=== PATIENT | male | born 1930 | race Caucasian/White ===

== ENCOUNTER 2017-08-13 18:03 | Emergency (ER) | payer MEDICARE ==
[2017-08-13 18:47] LABS: #Basophils 0.1 thou/uL (0.0-0.2); #Eosinphils 0.2 thou/uL (0.0-0.7); #Lymphocytes 3.3 thou/uL (1.20-3.40); #Monocytes 0.8 thou/uL (0.11-0.59); #Neutrophils 5.6 thou/uL (1.40-6.50); %Basophils 0.8 % (0.0-1.0); %Eosinophils 2.1 % (0.0-10.0); %Lymphocytes 33.3 % (21.0-51.0); %Monocytes 7.7 % (0.0-10.0); %Neutrophils 56.1 % (42.0-75.0); Hemoglobin 10.6 g/dL (14.0-18.0); Mean Corpuscular Hemoglobin 30.2 pg (27.0-31.0); Mean Corpuscular Volume 91.7 fl (80.0-94.0); Mean Platelet Volume 5.7 fL (7.4-10.4); Platelet Count 239 thou/uL (130-400); RBC Distribution Width 12.5 % (11.5-14.5); Red Blood Cell (RBC) Count 3.49 mill/uL (4.70-6.10)
--- NOTE | 2017-08-13 19:04 | RAD ---
TWO VIEWS OF THE LEFT HIP 08/13/17 COMPARISON: None. HISTORY: LEFT HIP PAIN, FALL. FINDINGS: There is mild joint space narrowing and osteophyte formation. There is no displaced fracture or evide nce of dislocation. There are atherosclerotic calcifications within the imaged left thigh medially. IMPRESSION: No displaced fracture or evidence of dislocation. POS: [facility]
[2017-08-13 19:05] LABS: ALT (SGPT) 31 U/L (8-55); AST (SGOT) 31 U/L (5-34); Alkaline Phosphatase 142 U/L (40-150); Anion Gap 14 mmol/L (10-20); BUN (Urea Nitrogen) 48 mg/dL (8.4-25.7); Bilirubin, Total 0.4 mg/dL (0.2-1.2); CK (CPK) 192 U/L (30-200); Calc. Creatinine Clearance 0 mL/min (70-130); Calcium 9.1 mg/dL (7.8-10.44); Carbon Dioxide 22 mmol/L (23-31); Chloride 103 mmol/L (98-107); Estimated GFR-MDRD 44; Globulin 3.7 g/dL (2.4-3.5); Glucose 134 mg/dL (83-110); Lipase 18 U/L (8-78); Potassium 4.4 mmol/L (3.5-5.1); Protein, Total 7.7 g/dL (5.8-8.1); Sodium 135 mmol/L (136-145)
--- NOTE | 2017-08-13 19:05 | RAD ---
FRONTAL RADIOGRAPH CHEST 08/13/17 COMPARISON: 01/10/17 HISTORY: Shortness of breath with dyspnea and congestion. FINDINGS: there is stable prominence of the cardiac silhouette and aortic arch. There is no pneumothorax or ple ural fluid and no focal consolidation or alveolar edema. There is mild interstitial prominence with p ulmonary hyperinflation. Stable left upper lobe granuloma present. IMPRESSION: No acute findings - stable appearance of the chest. POS: [facility]
[2017-08-13 19:08] LABS: CKMB 1.4 ng/mL (0-6.6); Troponin I Less than 0.010 ng/mL (< 0.028)
[2017-08-13] MEDS ORDERED: Dexamethasone 4 mg/ml Vial ONE (19:25)
== END 2017-08-13 19:58 | disposition home or self-care (01) ==
LOC: ERS 18:03
DX: J20.9 Acute bronchitis, unspecified (principal); I11.0 Hypertensive heart disease with heart failure; I50.9 Heart failure, unspecified; E78.5 Hyperlipidemia, unspecified; G62.9 Polyneuropathy, unspecified; Z79.899 Other long term (current) drug therapy
CPT/HCPCS: 71045; 80053; 82550; 82553; 83690; 83880; 84484; 85025; 93005; 94640; 96372; J1100; J7620

== ENCOUNTER 2017-09-27 18:02 | Emergency (ER) | payer MEDICARE ==
[2017-09-27 18:33] LABS: #Basophils 0.1 thou/uL (0.0-0.2); #Eosinphils 0.2 thou/uL (0.0-0.7); #Lymphocytes 3.6 thou/uL (1.20-3.40); #Monocytes 0.7 thou/uL (0.11-0.59); #Neutrophils 3.1 thou/uL (1.40-6.50); %Basophils 1.1 % (0.0-1.0); %Lymphocytes 46.8 % (21.0-51.0); %Monocytes 9.3 % (0.0-10.0); %Neutrophils 39.8 % (42.0-75.0); Hemoglobin 11.8 g/dL (14.0-18.0); Mean Corpuscular Hemoglobin 30.3 pg (27.0-31.0); Mean Corpuscular Volume 91.9 fl (80.0-94.0); Mean Platelet Volume 5.5 fL (7.4-10.4); Platelet Count 258 thou/uL (130-400); RBC Distribution Width 12.4 % (11.5-14.5); Red Blood Cell (RBC) Count 3.88 mill/uL (4.70-6.10); White Blood Cell (WBC) Count 7.7 thou/uL (4.8-10.8)
[2017-09-27 18:58] LABS: CKMB 2.1 ng/mL (0-6.6); Troponin I Less than 0.010 ng/mL (< 0.028)
[2017-09-27 19:00] LABS: ALT (SGPT) 14 U/L (8-55); AST (SGOT) 18 U/L (5-34); Albumin 4.3 g/dL (3.4-4.8); Alkaline Phosphatase 133 U/L (40-150); Anion Gap 16 mmol/L (10-20); BUN (Urea Nitrogen) 32 mg/dL (8.4-25.7); Bilirubin, Total 0.4 mg/dL (0.2-1.2); CK (CPK) 108 U/L (30-200); Calc. Creatinine Clearance 0 mL/min (70-130); Calcium 9.4 mg/dL (7.8-10.44); Carbon Dioxide 22 mmol/L (23-31); Chloride 102 mmol/L (98-107); Estimated GFR-MDRD 47; Globulin 3.8 g/dL (2.4-3.5); Glucose 122 mg/dL (83-110); Potassium 4.4 mmol/L (3.5-5.1); Protein, Total 8.1 g/dL (5.8-8.1); Sodium 136 mmol/L (136-145)
[2017-09-27 19:02] LABS: Lactic Acid 0.9 mmol/L (0.5-2.2)
[2017-09-27] MEDS ORDERED: Furosemide 40 MG/4 ML VIAL ONE (19:37)
[2017-09-27] MEDS ORDERED: Albuterol Sulfate 2.5 mg/3 ml Neb ONE ×2 (19:42)
--- NOTE | 2017-09-27 19:50 | RAD ---
PORTABLE CHEST: 09/27/2017 PROVIDED CLINICAL HISTORY: Shortness of breath. COMPARISON: 08/13/2017 FINDINGS: Cardiac and mediastinal silhouette are unchanged in appearance with cardiomegaly redemonstrated. Ath erosclerosis is again seen. Chronic appearing lung changes are similar. No focal consolidation, ple ural effusion, or pneumothorax apparent. IMPRESSION: Stable radiographic appearance of the chest. POS: [facility]
== END 2017-09-27 20:54 | disposition home or self-care (01) ==
LOC: ERS 18:02
DX: R06.00 Dyspnea, unspecified (principal); E78.5 Hyperlipidemia, unspecified; E11.40 Type 2 diabetes mellitus with diabetic neuropathy, unspecified; I11.0 Hypertensive heart disease with heart failure; I50.9 Heart failure, unspecified
CPT/HCPCS: 71045; 80053; 82553; 83605; 83880; 84484; 85025; 93005; 96374; J1940; J7611

== ENCOUNTER 2017-10-12 15:08 | Outpatient (CLI) | payer MEDICARE | END 2017-10-12 15:09 | disposition home or self-care (01) | LOC: DTY/OP 15:08 | PROVIDERS: ATTEND Internal Medicine | DX: E11.22 Type 2 diabetes mellitus with diabetic chronic kidney disease (principal); N18.3 Chronic kidney disease, stage 3 (moderate) | CPT/HCPCS: 97802 ==

== ENCOUNTER 2017-10-29 09:21 | Outpatient (CLI) | payer MEDICARE | END 2017-10-29 09:22 | disposition home or self-care (01) | LOC: BICULT 09:21 | PROVIDERS: ATTEND Internal Medicine Nephrology | DX: I12.9 Hypertensive chronic kidney disease with stage 1 through stage 4 chronic kidney disease, or unspecified chronic kidney disease (principal); N18.3 Chronic kidney disease, stage 3 (moderate) | CPT/HCPCS: 76700; 76770 ==

== ENCOUNTER 2017-12-27 08:46 | Emergency (ER) | payer MEDICARE ==
[2017-12-27 09:21] LABS: #Basophils 0.1 thou/uL (0.0-0.2); #Eosinphils 0.2 thou/uL (0.0-0.7); #Lymphocytes 3.3 thou/uL (1.20-3.40); #Monocytes 0.7 thou/uL (0.11-0.59); #Neutrophils 4.6 thou/uL (1.40-6.50); %Basophils 0.8 % (0.0-1.0); %Eosinophils 2.7 % (0.0-10.0); %Lymphocytes 36.7 % (21.0-51.0); %Monocytes 8.1 % (0.0-10.0); %Neutrophils 51.7 % (42.0-75.0); Hemoglobin 11.6 g/dL (14.0-18.0); Mean Corpuscular HGB CONC 32.5 g/dL (32.0-36.0); Mean Corpuscular Hemoglobin 30.1 pg (27.0-31.0); Mean Corpuscular Volume 92.6 fL (78.0-98.0); Mean Platelet Volume 5.9 fL (7.4-10.4); Platelet Count 240 thou/uL (130-400); Red Blood Cell (RBC) Count 3.86 mill/uL (4.70-6.10); White Blood Cell (WBC) Count 8.9 thou/uL (4.8-10.8)
[2017-12-27 09:48] LABS: CKMB 1.7 ng/mL (0-6.6); Troponin I Less than 0.010 ng/mL (< 0.028)
[2017-12-27 09:52] LABS: ALT (SGPT) 16 U/L (8-55); AST (SGOT) 19 U/L (5-34); Albumin 4.3 g/dL (3.4-4.8); Alkaline Phosphatase 133 U/L (40-150); Anion Gap 15 mmol/L (10-20); BUN (Urea Nitrogen) 33 mg/dL (8.4-25.7); Bilirubin, Total 0.4 mg/dL (0.2-1.2); Calc. Creatinine Clearance 0 mL/min (70-130); Calcium 9.3 mg/dL (7.8-10.44); Carbon Dioxide 23 mmol/L (23-31); Chloride 104 mmol/L (98-107); Estimated GFR-MDRD 46; Globulin 3.8 g/dL (2.4-3.5); Glucose 112 mg/dL (83-110); Potassium 4.7 mmol/L (3.5-5.1); Protein, Total 8.1 g/dL (5.8-8.1); Sodium 137 mmol/L (136-145)
--- NOTE | 2017-12-27 10:25 | RAD ---
UPRIGHT PORTABLE CHEST ONE VIEW: History: 87-year-old male with history of dyspnea and shortness of breath. Comparison: 09-27-17 FINDINGS: Stable cardiomegaly with increased linear and interstitial markings bilaterally. Old granulomatous di sease. No confluent pneumonia, overt edema, or pleural effusion. IMPRESSION: Stable cardiomegaly and increased markings bilaterally which may well be chronic. Old granulomatous d isease on the left. Atherosclerosis of the aorta with ectasia. POS: [facility]
== END 2017-12-27 10:55 | disposition home or self-care (01) ==
LOC: ERS 08:46
DX: J42 Unspecified chronic bronchitis (principal); E11.42 Type 2 diabetes mellitus with diabetic polyneuropathy; E78.5 Hyperlipidemia, unspecified; I11.0 Hypertensive heart disease with heart failure; I50.9 Heart failure, unspecified; Z79.899 Other long term (current) drug therapy; Z79.84 Long term (current) use of oral hypoglycemic drugs
CPT/HCPCS: 71045; 80053; 82553; 83880; 84484; 85025; 93005; 94640

== ENCOUNTER 2019-01-09 11:33 | Outpatient (CLI) | payer MEDICARE ==
--- NOTE | 2019-01-09 13:56 | RAD ---
RIGHT KNEE FOUR VIEWS: HISTORY: Right knee pain. FINDINGS: There are mild degenerative changes. No fracture, dislocation, or bony destruction is seen. Vascula r calcifications are present. POS: [facility]
--- NOTE | 2019-01-09 13:59 | RAD ---
LEFT KNEE 4 VIEWS: HISTORY: Left knee pain. FINDINGS/IMPRESSION: There are mild degenerative changes. No fracture, dislocation, or bony destruction is seen. Vascula r calcifications are present. 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 POS: [facility]
== END 2019-01-09 11:34 | disposition home or self-care (01) ==
LOC: BICRAD 11:33
PROVIDERS: ATTEND Internal Medicine
DX: M25.561 Pain in right knee (principal); M25.562 Pain in left knee; M17.12 Unilateral primary osteoarthritis, left knee; D16.22 Benign neoplasm of long bones of left lower limb; I99.8 Other disorder of circulatory system

== ENCOUNTER 2019-03-26 11:43 | Emergency (ER) | payer MEDICARE ==
--- NOTE | 2019-03-26 12:26 | RAD ---
PORTABLE CHEST 1 VIEW: Date: 03/26/19 Time: 1219 hours HISTORY: Dyspnea. FINDINGS/IMPRESSION: Comparison made with exam of 12/27/17. The heart size is borderline. The aorta is tortuous. Chronic changes are again seen. No lobar consoli dation, pneumothoraces, or large effusions are identified. There is no evidence of oliverio pulmonary ed moni. POS: [facility]
[2019-03-26 12:36] LABS: #Basophils 0.1 thou/uL (0.0-0.2); #Eosinphils 0.1 thou/uL (0.0-0.7); #Lymphocytes 2.4 thou/uL (1.20-3.40); #Monocytes 0.6 thou/uL (0.11-0.59); #Neutrophils 4.4 thou/uL (1.40-6.50); %Basophils 0.8 % (0.0-1.0); %Eosinophils 1.9 % (0.0-10.0); %Lymphocytes 31.7 % (21.0-51.0); %Monocytes 8.1 % (0.0-10.0); %Neutrophils 57.5 % (42.0-75.0); Hemoglobin 10.1 g/dL (14.0-18.0); Mean Corpuscular HGB CONC 32.3 g/dL (32.0-36.0); Mean Corpuscular Hemoglobin 28.7 pg (27.0-31.0); Mean Corpuscular Volume 88.9 fL (78.0-98.0); Mean Platelet Volume 6.5 fL (7.4-10.4); Platelet Count 238 thou/uL (130-400); RBC Distribution Width 14.2 % (11.5-14.5); Red Blood Cell (RBC) Count 3.52 mill/uL (4.70-6.10); White Blood Cell (WBC) Count 7.6 thou/uL (4.8-10.8)
[2019-03-26 12:45] LABS: ALT (SGPT) 13 U/L (8-55); AST (SGOT) 15 U/L (5-34); Alkaline Phosphatase 134 U/L (40-110); Anion Gap 12 mmol/L (10-20); BUN (Urea Nitrogen) 27 mg/dL (8.4-25.7); Bilirubin, Total 0.5 mg/dL (0.2-1.2); Calc. Creatinine Clearance 0 mL/min (70-130); Calcium 9.2 mg/dL (7.8-10.44); Carbon Dioxide 25 mmol/L (23-31); Chloride 103 mmol/L (98-107); Estimated GFR-MDRD 47; Globulin 4.1 g/dL (2.4-3.5); Glucose 146 mg/dL (83-110); Potassium 4.4 mmol/L (3.5-5.1); Protein, Total 8.1 g/dL (5.8-8.1); Sodium 136 mmol/L (136-145)
== END 2019-03-26 14:20 | disposition home or self-care (01) ==
LOC: ERS 11:43
DX: I11.0 Hypertensive heart disease with heart failure (principal); I50.9 Heart failure, unspecified; I87.8 Other specified disorders of veins; E11.42 Type 2 diabetes mellitus with diabetic polyneuropathy; E78.5 Hyperlipidemia, unspecified; E78.00 Pure hypercholesterolemia, unspecified; Z79.899 Other long term (current) drug therapy; Z79.51 Long term (current) use of inhaled steroids
CPT/HCPCS: 71045; 80053; 83880; 84484; 85025; 93005

== ENCOUNTER 2019-06-28 07:38 | Outpatient (CLI) | payer MEDICARE ==
--- NOTE | 2019-06-28 09:32 | ULT ---
RIGHT UPPER QUADRANT ULTRASOUND: DATE: 06/28/2019. COMPARISON: None. HISTORY: Elevated liver function tests. TECHNIQUE: Multiplanar, ley scale, sonographic imaging right upper quadrant obtained. FINDINGS: Partially visualized pancreas unremarkable, greatly obscured by bowel gas. There is significant limi tation with respect to evaluation of the liver secondary to bowel gas as well. Imaged portions of th e liver demonstrate no focal abnormality. The tower supervisor reports a negative Jay's sign. The common bile duct measures 5 mm, within normal limits. There is nonspecific gallbladder wall thickening, with the gallbladder wall measuring up to 5-6 mm. No gallstones are apparent. Gallbladder sludge is seen. The right kidney measured 11.5 cm craniocau aldair dimension and demonstrates no evidence for stone, hydronephrosis, or mass lesion. There is probable trace free fluid adjacent to the gallbladder. IMPRESSION: Gallbladder demonstrates an abnormal appearance with wall thickening and internal sludge. However, t here are no gallstones seen, there is no biliary dilatation, and the tower supervisor reports a negative M urphy's sign. If further assessment of the gallbladder is clinically warranted, hepatobiliary scan i s suggested. No convincing evidence for acute cholecystitis is seen on the basis of this examination . POS: [facility]
== END 2019-06-28 07:39 | disposition home or self-care (01) ==
LOC: BICULT 07:38
PROVIDERS: ATTEND Internal Medicine
DX: R74.8 Abnormal levels of other serum enzymes (principal); K82.8 Other specified diseases of gallbladder
CPT/HCPCS: 76705

== ENCOUNTER 2019-07-17 07:20 | Outpatient (CLI) | payer MEDICARE ==
--- NOTE | 2019-07-17 10:55 | NM ---
Exam: Nuclear medicine HIDA scan with EF HISTORY: Gallbladder disease. No bladder wall thickening and sludge noted on recent ultrasound. TECHNIQUE: Patient was administered 5.5 mCi of technetium 99m mebrofenin intravenously. Gallbladder e jection fraction was determined after the patient administered 8 out of Ensure orally FINDINGS: Homogeneous uptake of the radiotracer by the hepatic parenchyma. There is localization of radiotracer in the gallbladder as early as 15 minutes. There is passage of radiotracer from the common bile duct into multiple small bowel loops Gallbladder ejection fraction: 56% IMPRESSION: 1. No scintigraphic evidence of acute prostatitis 2. 56% gallbladder ejection fraction, normal
== END 2019-07-17 07:21 | disposition home or self-care (01) ==
LOC: NM 07:20
PROVIDERS: ATTEND Internal Medicine
DX: K82.8 Other specified diseases of gallbladder (principal)
CPT/HCPCS: 78227; A9537

== ENCOUNTER 2019-08-10 15:48 | Inpatient (IN) | payer MEDICARE ==
[2019-08-10 17:04] LABS: Mean Corpuscular Volume 87.1 fL (78.0-98.0); Red Blood Cell (RBC) Count 3.22 mill/uL (4.70-6.10); White Blood Cell (WBC) Count 8.3 thou/uL (4.8-10.8)
[2019-08-10 17:05] LABS: #Lymphocytes 1.8 thou/uL (1.20-3.40); #Monocytes 1.2 thou/uL (0.11-0.59); #Neutrophils 5.2 thou/uL (1.40-6.50); %Basophils 0.1 % (0.0-1.0); %Eosinophils 0.6 % (0.0-10.0); %Lymphocytes 21.8 % (21.0-51.0); %Monocytes 14.6 % (0.0-10.0); Mean Corpuscular Hemoglobin 27.8 pg (27.0-31.0); Mean Platelet Volume 6.8 fL (7.4-10.4); Platelet Count 213 thou/uL (130-400); RBC Distribution Width 14.2 % (11.5-14.5)
--- NOTE | 2019-08-10 17:18 | RAD ---
XR Chest 1 View Portable History: Decreased oxygen saturation Comparison: Radiograph February 2019 Findings: The heart size is enlarged. Trace effusions. Mild pulmonary edema. No pneumothorax. Calcifi ed granuloma left upper lobe. Heart size is enlarged. Calcific tendinosis right rotator cuff. Old right rib fractures. Impression: Mild decompensated congestive heart failure.
[2019-08-10 17:29] LABS: ALT (SGPT) 15 U/L (8-55); AST (SGOT) 21 U/L (5-34); Albumin 3.8 g/dL (3.4-4.8); Alkaline Phosphatase 183 U/L (40-110); Anion Gap 13 mmol/L (10-20); BUN (Urea Nitrogen) 38 mg/dL (8.4-25.7); Bilirubin, Total 0.9 mg/dL (0.2-1.2); Calc. Creatinine Clearance 0 mL/min (70-130); Calcium 8.9 mg/dL (7.8-10.44); Carbon Dioxide 24 mmol/L (23-31); Chloride 103 mmol/L (98-107); Estimated GFR-MDRD 37; Globulin 3.9 g/dL (2.4-3.5); Glucose 161 mg/dL (83-110); Potassium 4.2 mmol/L (3.5-5.1); Protein, Total 7.7 g/dL (5.8-8.1); Sodium 136 mmol/L (136-145)
[2019-08-10] MEDS ORDERED: Albuterol Sulfate 2.5 mg/0.5 ml Neb ONE (17:38)
[2019-08-10] MEDS ORDERED: Albuterol Sulfate 2.5 mg/3 ml Neb ONE (17:38)
[2019-08-10 17:46] LABS: Analyzer IN Cardio ER; Base Excess (BEa) -2.4 mEq/L (-2.0 to +3.0); CO2 Tension 42.4 mmHg (35.0-45.0); Calcium, Ionized 1.15 mmol/L (1.12-1.30); Carboxyhemoglobin (COHb) 0.8 gm% (0.0-3.0); Hemoglobin (Hb) 9.7 g/dL (14.0-18.0); O2 Tension (PaO2) 72.3 mmHg (> 60.0); Potassium - ABG Lab 4.09 mmol/L (3.70-5.30); pH, Arterial 7.35 (7.35-7.45)
[2019-08-10 17:47] LABS: Puncture Site RRA
[2019-08-10] MEDS ORDERED: Aspirin Chewable 81 MG TAB ONE (17:50)
[2019-08-10] MEDS ORDERED: Nitroglycerin 2% Ointment 1 INCH/1 GM Packet ONE (17:51)
[2019-08-10] MEDS ORDERED: Furosemide 40 MG/4 ML VIAL ONE (17:51)
[2019-08-10 18:39] LABS: Bilirubin Negative (Negative); Blood, Urine Negative (Negative); Clarity Clear (Clear); Glucose, Urine (Dipstick) Normal (Negative); Leukocyte Negative Leu/uL (Negative); Nitrite Negative (Negative); Protein, Urine (Dipstick) 30 mg/dL (Neg-Trace); RBC/HPF 0-3 HPF (0-3); Squamous Epithelial 0-3 HPF (0-3); WBC/HPF 0-3 HPF (0-3)
[2019-08-10 18:43] LABS: Bacteria/HPF 1+ HPF (None Seen)
[2019-08-10 20:05] LABS: Troponin I 0.013 ng/mL (< 0.028)
[2019-08-10 23:09] LABS: Troponin I 0.018 ng/mL (< 0.028)
[2019-08-10] MEDS ORDERED: Polyethylene Glycol OPTH DROP 15 ML BOT EA EYE PRN (23:48)
[2019-08-10] MEDS ORDERED: HumaLOG 300 UNITS/3 ML VIAL SC PRN (23:49)
[2019-08-10] MEDS ORDERED: Dextrose 50% Abboject 50 ML SYRINGE SLOW IVP PRN (23:49)
[2019-08-10] MEDS ORDERED: Dextrose 5% in Water 1,000 ML IV PRN (23:49)
[2019-08-10] MEDS ORDERED: Simvastatin 20 MG TAB PO SCH (23:59)
[2019-08-10] MEDS ORDERED: Carvedilol 25 MG TAB PO SCH (23:59)
[2019-08-11 02:14] VITALS: BMI 31.8
[2019-08-11] MEDS ORDERED: Acetaminophen 325 MG TAB PO PRN (03:21)
[2019-08-11] MEDS ORDERED: Ondansetron ODT 4 MG TAB PO PRN (03:21)
[2019-08-11] MEDS: PROVENTIL INHALER 6.7 G (200 INHALATIONS) INH SCH ×6 (03:43→23:00)
[2019-08-11 05:28] LABS: Band 5 % (5-11); Eosinophils 2 % (0-10); Hemoglobin 8.6 g/dL (14.0-18.0); Lymphocytes 16 % (21-51); MDiff Complete? YES; Mean Corpuscular HGB CONC 31.6 g/dL (32.0-36.0); Mean Corpuscular Hemoglobin 27.6 pg (27.0-31.0); Mean Corpuscular Volume 87.4 fL (78.0-98.0); Mean Platelet Volume 6.8 fL (7.4-10.4); Monocytes 16 % (0-10); Neutrophil 61 % (42-75); Platelet Count 212 thou/uL (130-400); RBC Distribution Width 14.2 % (11.5-14.5); Red Blood Cell (RBC) Count 3.12 mill/uL (4.70-6.10); White Blood Cell (WBC) Count 6.9 thou/uL (4.8-10.8)
[2019-08-11 05:31] LABS: Anion Gap 14 mmol/L (10-20); BUN (Urea Nitrogen) 40 mg/dL (8.4-25.7); Calc. Creatinine Clearance 55 mL/min (70-130); Calcium 8.6 mg/dL (7.8-10.44); Carbon Dioxide 22 mmol/L (23-31); Chloride 104 mmol/L (98-107); Estimated GFR-MDRD 42; Glucose 151 mg/dL (83-110); Potassium 3.8 mmol/L (3.5-5.1); Sodium 136 mmol/L (136-145)
[2019-08-11] MEDS: HumaLOG 300 UNITS/3 ML VIAL SC PRN ×2 (07:23→18:19)
--- NOTE | 2019-08-11 07:28 | HP ---
CHIEF COMPLAINT: Shortness of breath. HISTORY OF PRESENT ILLNESS: The patient is an 89-year-old male, who presents to the hospital with congestion, cough going on since Wednesday. The patient initially started having sore throat, cough. His symptoms did not improve, so he came into the ER for further evaluation. The patient in the ER was noted to have low oxygen saturations, however, his lowest was 91%. He did have some brown sputum. He stated that he took some [id number] medication. He has some body aches and pains. Denies any recent travel. He has not had any visitors, so he came into the hospital for further evaluation. PAST MEDICAL HISTORY: The patient has a history of neuropathy. He has a history of hyperlipidemia, cholesterol, history of type 2 diabetes, hypertension, CHF, and chronic kidney disease. PAST SURGICAL HISTORY: He has a history of cataract surgery, lumbar disk surgery, and stent in his left kidney. SOCIAL HISTORY: He denies any alcohol use, drug use. He lives alone. No recreational drug use. He is a full code. ALLERGIES: HE IS ALLERGIC TO PENICILLIN. MEDICATIONS: 1. He is on amlodipine 5 mg daily. 2. Simvastatin 10 mg daily. 3. He is also on aspirin 81 mg daily. 4. Carvedilol 25 mg twice a day. 5. Lasix 40 mg daily. 6. Protonix 40 mg daily. REVIEW OF SYSTEMS: All negative except for the ones mentioned above in the HPI. PHYSICAL EXAMINATION: VITAL SIGNS: Temperature of 98.3, pulse 72, respiratory rate 22, oxygen saturation 92% on 4 L, and blood pressure . GENERAL: He is awake, alert, and oriented x3. Does not appear in any distress. CARDIOVASCULAR: S1 and S2 present. No murmurs, rubs, or gallops. LUNGS: Mild rhonchi to bilateral lower lung bases. ABDOMEN: Soft and nontender. Bowel sounds are present x2. EXTREMITIES: Mild lower extremity pitting edema and also he has significant erythema to his lower extremity, which according to his family member is not new. NEUROVASCULAR: There are no focal deficits noted. SKIN: No cuts, lesions, or bruises noted except for the lower extremity erythema with some small blisters that are noted. LABORATORY RESULTS: As of the following; WBCs of 6.9, hemoglobin of 8.6, hematocrit of 27.3, and platelets of 212. Chemistries; sodium of , potassium of 3.8, BUN of 40, and creatinine of 1.58. His urine did not show any acute abnormalities. IMAGING DATA: His chest x-ray again upon my interpretation just indicates a bile leak, heart failure. His BNP was mildly elevated at 348. ASSESSMENT AND PLAN: The patient is a very pleasant 89-year-old male, who presents to the hospital with complaints of shortness of breath and cough. 1. Possible pneumonia. The patient's influenza was negative. However, he could have an underlying viral superimposed with pneumonia. The patient did have significant symptoms of coughing and change in sputum and he has not been feeling well since Wednesday. We will start him on some Levaquin. We will give him DuoNeb. I will also give him some IV Lasix and continue to monitor. 2. Hypertension. We will continue his home medications. 3. Diabetes. We will continue his home medications. 4. Chronic kidney disease, stage 3, stable. We will continue to monitor. 5. Deep venous thrombosis prophylaxis. We will put the patient on subcu Lovenox. Job ID: [id number]
[2019-08-11] MEDS ORDERED: Carvedilol 25 MG TAB PO SCH (08:00)
[2019-08-11] MEDS: hydrALAZINE 25 MG TAB PO SCH ×2 (08:53→21:47)
[2019-08-11] MEDS: Aspirin 81 mg Enteric Coated Tablet PO SCH (08:53)
[2019-08-11] MEDS: Amlodipine 5 MG TAB PO SCH ×2 (08:55→21:47)
[2019-08-11] MEDS: Carvedilol 25 MG TAB PO SCH ×2 (08:56→21:47)
[2019-08-11] MEDS: Enoxaparin Sodium 40 MG/0.4 ML SYRINGE SC SCH (08:56)
[2019-08-11] MEDS: Fluticasone Propionate Nasal Spray 16 gm Bottle NASAL SCH (08:57)
[2019-08-11] MEDS ORDERED: Aspirin 81 mg Enteric Coated Tablet PO SCH (09:00)
[2019-08-11] MEDS ORDERED: Enoxaparin Sodium 40 MG/0.4 ML SYRINGE SC SCH (09:00)
[2019-08-11] MEDS ORDERED: Furosemide 40 MG/4 ML VIAL SLOW IVP SCH (09:00)
--- NOTE | 2019-08-11 13:36 | PDOC.HOSPP ---
- Subjective Encounter Date: 08/11/19 Encounter Time: 13:35 Subjective: Mr. Hanson was seen today in follow-up of respiratory failure. He says he is breathing better. He still has some cough productive of brownish sputum. - Objective Vital Signs & Weight: Vital Signs (12 hours) Temp Pulse Resp BP BP Pulse Ox 08/11/19 11:50 98.3 F 63 23 H 153/70 H 94 L 08/11/19 08:55 84 146/66 H 08/11/19 08:53 84 146/66 H 08/11/19 08:04 98.6 F 61 20 187/79 H 100 08/11/19 07:37 63 13 94 L 08/11/19 07:33 94 L 08/11/19 03:43 95 08/11/19 02:10 98.3 F 72 22 H 179/79 H 92 L Weight Admit Weight 261 lb 3.2 oz Weight 261 lb 3.2 oz Result Diagrams: 08/11/19 04:35 08/11/19 04:34 Additional Labs: Accuchecks 08/11/19 08/11/19 06:11 01:12 POC Glucose 155 H 181 H Hospitalist ROS - Medication Medications: Active Medications Generic Name Dose Route Start Last Admin Trade Name Freq PRN Reason Stop Dose Admin Albuterol Sulfate 2 puff 08/11/19 02:30 08/11/19 07:33 Proventil Hfa INH 2 puff [id number] TARAH Administration Albuterol/Ipratropium 3 ml 08/11/19 07:00 08/11/19 07:37 Duoneb NEB 3 ml [id number] TARAH Administration Amlodipine Besylate 5 mg 08/11/19 09:00 08/11/19 08:55 Norvasc PO 5 mg BID TARAH Administration Aspirin 81 mg 08/11/19 09:00 08/11/19 08:53 Ecotrin PO 81 mg DAILY TARAH Administration Carvedilol 25 mg 08/11/19 09:00 08/11/19 08:56 Coreg PO 25 mg BID TARAH Administration Enoxaparin Sodium 40 mg 08/11/19 09:00 08/11/19 08:56 Lovenox SC 40 mg 0900 TARAH Administration Fluticasone Propionate 0 gm 08/11/19 09:00 08/11/19 08:57 Flonase Nasal [place] NASAL Not Given DAILY [facility] Hydralazine HCl 50 mg 08/11/19 09:00 08/11/19 08:53 Apresoline PO 50 mg BID TARAH Administration Levofloxacin 500 mg/ Device 100 mls @ 100 mls/hr 08/11/19 05:15 08/11/19 05: 55 IVPB 100 mls Q24HR TARAH Administration Insulin Human Lispro 0 units 08/10/19 23:49 08/11/19 07:23 Humalog SC 2 unit .MILD SLIDING SCALE PRN Administration Mild Correctional Scale Isosorbide Mononitrate 30 mg 08/11/19 09:00 08/11/19 08:55 Imdur PO 30 mg DAILY TARAH Administration Pantoprazole Sodium 40 mg 08/11/19 09:00 08/11/19 08:53 Protonix PO 40 mg DAILY TARAH Administration Sodium Chloride 10 ml 08/11/19 09:00 08/11/19 08:57 Flush - Normal Saline IVF 10 ml Q12HR TARAH Administration - Exam Eye: PERRL Heart: RRR, no murmur, no gallops, no rubs, normal peripheral pulses Respiratory: wheezes (+ bilateral wheezeing and samoe scattered rhonchi) Gastrointestinal: soft, non-tender, non-distended, normal bowel sounds, no palpable masses, no hepatomegaly, no splenomegaly Extremities: 2+ LE edema (+ erythema in both lower extremities, and chronic venous stasis changes) Hosp A/P (1) Acute respiratory failure Code(s): J96.00 - ACUTE RESPIRATORY FAILURE, UNSP W HYPOXIA OR HYPERCAPNIA Status: Acute (2) Community acquired pneumonia Code(s): J18.9 - PNEUMONIA, UNSPECIFIED ORGANISM Status: Acute (3) CKD (chronic kidney disease) stage 2, GFR 60-89 ml/min Code(s): N18.2 - CHRONIC KIDNEY DISEASE, STAGE 2 (MILD) Status: Chronic (4) DM2 (diabetes mellitus, type 2) Status: Chronic (5) HTN (hypertension) Code(s): I10 - ESSENTIAL (PRIMARY) HYPERTENSION Status: Chronic (6) Acute on chronic diastolic (congestive) heart failure Code(s): I50.33 - ACUTE ON CHRONIC DIASTOLIC (CONGESTIVE) HEART FAILURE Status : Acute - Plan * Acute respiratory failure due to pneumonia and CHF exacerbation * Pneumonia- clinically this is more likely bacterial with productive sputum, of vasques- brown color- will continue Levaquin * Acute on chronic diastolic heart failure- it does not appear he has had a recent Echo- will check this- and will transition him to oral Lasix * HTN- blood pressure was a bit elevated, but trending down * Chronic kidney disease stage 2- stable * DM- blood glucose is stable
[2019-08-11] MEDS ORDERED: Simvastatin 20 MG TAB PO SCH (21:00)
[2019-08-11] MEDS: Simvastatin 20 MG TAB PO SCH (21:47)
[2019-08-11] MEDS: Furosemide 40 MG TAB PO SCH (21:47)
[2019-08-11] MEDS: DorzolamidE/Timolol 2%/0.5% Ophth Soln 10 ml Bottle EA EYE SCH (21:48)
[2019-08-11] MEDS ORDERED: hydrALAZINE 20 MG/ML VIAL ONE (21:52)
[2019-08-12] MEDS: PROVENTIL INHALER 6.7 G (200 INHALATIONS) INH SCH ×6 (03:43→22:16)
[2019-08-12 05:18] LABS: #Basophils 0.1 thou/uL (0.0-0.2); #Eosinphils 0.1 thou/uL (0.0-0.7); #Lymphocytes 1.9 thou/uL (1.20-3.40); #Neutrophils 4.2 thou/uL (1.40-6.50); %Basophils 0.7 % (0.0-1.0); %Eosinophils 1.3 % (0.0-10.0); %Lymphocytes 26.7 % (21.0-51.0); %Monocytes 13.6 % (0.0-10.0); %Neutrophils 57.7 % (42.0-75.0); Hemoglobin 9.1 g/dL (14.0-18.0); Mean Corpuscular HGB CONC 31.2 g/dL (32.0-36.0); Mean Corpuscular Hemoglobin 27.2 pg (27.0-31.0); Mean Corpuscular Volume 87.2 fL (78.0-98.0); Mean Platelet Volume 6.1 fL (7.4-10.4); Platelet Count 207 thou/uL (130-400); RBC Distribution Width 14.2 % (11.5-14.5); Red Blood Cell (RBC) Count 3.33 mill/uL (4.70-6.10); White Blood Cell (WBC) Count 7.3 thou/uL (4.8-10.8)
[2019-08-12 05:42] LABS: Anion Gap 14 mmol/L (10-20); BUN (Urea Nitrogen) 40 mg/dL (8.4-25.7); Calc. Creatinine Clearance 58 mL/min (70-130); Carbon Dioxide 24 mmol/L (23-31); Chloride 103 mmol/L (98-107); Estimated GFR-MDRD 44; Glucose 133 mg/dL (83-110); Potassium 3.8 mmol/L (3.5-5.1); Sodium 137 mmol/L (136-145)
[2019-08-12] MEDS: Amlodipine 5 MG TAB PO SCH ×2 (09:10→21:02)
[2019-08-12] MEDS: Carvedilol 25 MG TAB PO SCH ×2 (09:10→21:02)
[2019-08-12] MEDS: Aspirin 81 mg Enteric Coated Tablet PO SCH (09:11)
[2019-08-12] MEDS: Furosemide 40 MG TAB PO SCH ×2 (09:12→21:02)
[2019-08-12] MEDS: Enoxaparin Sodium 40 MG/0.4 ML SYRINGE SC SCH (09:12)
[2019-08-12] MEDS: Fluticasone Propionate Nasal Spray 16 gm Bottle NASAL SCH (09:15)
[2019-08-12] MEDS: hydrALAZINE 25 MG TAB PO SCH ×2 (10:22→21:01)
[2019-08-12] MEDS: HumaLOG 300 UNITS/3 ML VIAL SC PRN ×2 (12:08→17:07)
--- NOTE | 2019-08-12 12:11 | PDOC.HOSPP ---
- Subjective Encounter Date: 08/12/19 Encounter Time: 10:00 Subjective: breathing better, lower extremity swelling is better says he is ambulating a bit in the room and that's his baseline at home lives with his , has friends to check on him daily - Objective Vital Signs & Weight: Vital Signs (12 hours) Temp Pulse Resp BP BP Pulse Ox 08/12/19 10:22 66 169/78 H 08/12/19 09:10 66 169/78 H 95 08/12/19 08:23 98.0 F 71 20 169/71 H 95 08/12/19 06:32 66 16 08/12/19 05:24 98.2 F 67 18 165/74 H 95 08/12/19 00:49 97.8 F 64 16 157/70 H 95 Weight Admit Weight 261 lb 3.2 oz Weight 261 lb 3.2 oz I&O: 08/11/19 08/12/19 08/13/19 06:59 06:59 06:59 Intake Total 490 Output Total 1100 Balance -610 Result Diagrams: 08/12/19 05:10 08/12/19 05:10 Additional Labs: Accuchecks 08/12/19 08/12/19 08/11/19 10:54 06:34 20:59 POC Glucose 224 H 145 H 172 H 08/11/19 08/11/19 16:39 14:11 POC Glucose 191 H 199 H Hospitalist ROS - Medication Medications: Active Medications Generic Name Dose Route Start Last Admin Trade Name Freq PRN Reason Stop Dose Admin Albuterol Sulfate 2 puff 08/11/19 02:30 08/12/19 11:09 Proventil Hfa INH Not Given [id number] TARAH Albuterol/Ipratropium 3 ml 08/11/19 07:00 08/12/19 06:32 Duoneb NEB 3 ml [id number] TARAH Administration Amlodipine Besylate 5 mg 08/11/19 09:00 08/12/19 09:10 Norvasc PO 5 mg BID TARAH Administration Aspirin 81 mg 08/11/19 09:00 08/12/19 09:11 Ecotrin PO 81 mg DAILY [facility]AH Administration Carvedilol 25 mg 08/11/19 09:00 08/12/19 09:10 Coreg PO 25 mg BID TARAH Administration Dorzolamide/Timolol 1 drop 08/11/19 21:00 08/11/19 21:48 Cosopt 2-0.5% Ophth Soln EA EYE 1 drop HS TARAH Administration Enoxaparin Sodium 40 mg 08/11/19 09:00 08/12/19 09:12 Lovenox SC 40 mg 0900 TARAH Administration Fluticasone Propionate 0 gm 08/11/19 09:00 08/12/19 09:15 Flonase Nasal [place] NASAL 2 spr DAILY [facility] Administration Furosemide 40 mg 08/11/19 21:00 08/12/19 09:12 Lasix PO 40 mg BID TARAH Administration Hydralazine HCl 50 mg 08/11/19 09:00 08/12/19 10:22 Apresoline PO 50 mg BID TARAH Administration Levofloxacin 500 mg/ Device 100 mls @ 100 mls/hr 08/11/19 05:15 08/12/19 05: 34 IVPB 100 mls Q24HR TARAH Administration Insulin Human Lispro 0 units 08/10/19 23:49 08/11/19 18:19 Humalog SC 2 unit .MILD SLIDING SCALE PRN Administration Mild Correctional Scale Isosorbide Mononitrate 30 mg 08/11/19 09:00 08/12/19 09:11 Imdur PO 30 mg DAILY [facility]AH Administration Pantoprazole Sodium 40 mg 08/11/19 09:00 08/12/19 09:11 Protonix PO 40 mg DAILY [facility]AH Administration Simvastatin 10 mg 08/11/19 21:00 08/11/19 21:47 Zocor PO 10 mg HS TARAH Administration Sodium Chloride 10 ml 08/11/19 09:00 08/12/19 09:15 Flush - Normal Saline IVF 10 ml Q12HR TARAH Administration - Exam General Appearance: awake alert Eye: PERRL, anicteric sclera ENT: no oropharyngeal lesions, moist mucosa Neck: supple, no JVD Heart: RRR, no murmur Respiratory: no wheezes, no rales, rhonchi Gastrointestinal: soft, non-tender, non-distended, normal bowel sounds Extremities: no cyanosis, 2+ LE edema Extremities - other findings: right LE > Left LE Neurological: cranial nerve grossly intact, no focal deficits Psychiatric: normal affect, A&O x 3 Hosp A/P (1) Acute respiratory failure Code(s): J96.00 - ACUTE RESPIRATORY FAILURE, UNSP W HYPOXIA OR HYPERCAPNIA Status: Acute Qualifiers: Respiratory failure complication: hypoxia Qualified Code(s): J96.01 - Acute respiratory failure with hypoxia (2) Community acquired pneumonia Code(s): J18.9 - PNEUMONIA, UNSPECIFIED ORGANISM Status: Acute (3) VERO (acute kidney injury) Code(s): N17.9 - ACUTE KIDNEY FAILURE, UNSPECIFIED Status: Acute (4) Acute on chronic diastolic (congestive) heart failure Code(s): I50.33 - ACUTE ON CHRONIC DIASTOLIC (CONGESTIVE) HEART FAILURE Status : Acute (5) Anxiety and depression Code(s): F41.8 - OTHER SPECIFIED ANXIETY DISORDERS Status: Chronic (6) DM2 (diabetes mellitus, type 2) Status: Chronic Qualifiers: Diabetes mellitus continuous churn buttermaker insulin use: without continuous churn buttermaker use Diabetes mellitus complication status: with other specified complication Qualified Code (s): E11.69 - Type 2 diabetes mellitus with other specified complication (7) HTN (hypertension) Code(s): I10 - ESSENTIAL (PRIMARY) HYPERTENSION Status: Chronic Qualifiers: Hypertension type: essential hypertension Qualified Code(s): I10 - Essential (primary) hypertension (8) Chronic anemia Code(s): D64.9 - ANEMIA, UNSPECIFIED Status: Chronic - Plan clinically his edema in LE is better and almost at baseline per patient continue levaquin, nebs, norvasc, asp, coreg, hydralazine, lasix bid and imdur has chronic likely lymphedema or venous stasis with right LE > left LE to mobilize as tolerated will need HH with PT and nursing on discharge
[2019-08-12] MEDS: DorzolamidE/Timolol 2%/0.5% Ophth Soln 10 ml Bottle EA EYE SCH (21:02)
[2019-08-12] MEDS: Simvastatin 20 MG TAB PO SCH (21:02)
[2019-08-13] MEDS: PROVENTIL INHALER 6.7 G (200 INHALATIONS) INH SCH ×6 (04:25→22:52)
[2019-08-13] MEDS: Furosemide 40 MG TAB PO SCH ×2 (07:35→20:28)
[2019-08-13] MEDS: hydrALAZINE 25 MG TAB PO SCH ×2 (07:35→20:28)
[2019-08-13] MEDS: Aspirin 81 mg Enteric Coated Tablet PO SCH (07:35)
[2019-08-13] MEDS: Amlodipine 5 MG TAB PO SCH ×2 (07:35→20:28)
[2019-08-13] MEDS: Fluticasone Propionate Nasal Spray 16 gm Bottle NASAL SCH (07:36)
[2019-08-13] MEDS: Carvedilol 25 MG TAB PO SCH ×2 (07:36→20:28)
[2019-08-13] MEDS: Enoxaparin Sodium 40 MG/0.4 ML SYRINGE SC SCH (07:36)
[2019-08-13 08:08] LABS: #Basophils 0.1 thou/uL (0.0-0.2); #Eosinphils 0.1 thou/uL (0.0-0.7); #Lymphocytes 1.8 thou/uL (1.20-3.40); #Neutrophils 4.5 thou/uL (1.40-6.50); %Lymphocytes 23.5 % (21.0-51.0); %Monocytes 13.8 % (0.0-10.0); %Neutrophils 59.8 % (42.0-75.0); Hemoglobin 9.2 g/dL (14.0-18.0); Mean Corpuscular HGB CONC 30.9 g/dL (32.0-36.0); Mean Corpuscular Hemoglobin 26.9 pg (27.0-31.0); Mean Corpuscular Volume 87.1 fL (78.0-98.0); Mean Platelet Volume 6.3 fL (7.4-10.4); Platelet Count 273 thou/uL (130-400); RBC Distribution Width 14.1 % (11.5-14.5); Red Blood Cell (RBC) Count 3.43 mill/uL (4.70-6.10); White Blood Cell (WBC) Count 7.5 thou/uL (4.8-10.8)
[2019-08-13 08:21] LABS: Anion Gap 13 mmol/L (10-20); BUN (Urea Nitrogen) 40 mg/dL (8.4-25.7); Calc. Creatinine Clearance 61 mL/min (70-130); Carbon Dioxide 26 mmol/L (23-31); Chloride 102 mmol/L (98-107); Estimated GFR-MDRD 47; Glucose 123 mg/dL (83-110); Sodium 137 mmol/L (136-145)
[2019-08-13] MEDS: HumaLOG 300 UNITS/3 ML VIAL SC PRN ×2 (10:53→16:33)
--- NOTE | 2019-08-13 11:43 | PDOC.HOSPP ---
- Subjective Encounter Date: 08/13/19 Encounter Time: 10:40 Subjective: feels better wants to stay another night and see if he gets more strength with PT - Objective Vital Signs & Weight: Vital Signs (12 hours) Temp Pulse Resp BP BP Pulse Ox 08/13/19 07:56 69 18 96 08/13/19 07:35 66 185/77 H 96 08/13/19 07:24 98.2 F 66 16 185/77 H 96 08/13/19 04:00 98.0 F 62 18 152/62 H 93 L 08/13/19 01:16 94 L Weight Admit Weight 261 lb 3.2 oz Weight 262 lb I&O: 08/12/19 08/13/19 08/14/19 06:59 06:59 06:59 Intake Total 490 960 Output Total 1100 500 Balance -610 460 Result Diagrams: 08/13/19 07:47 08/13/19 07:47 Additional Labs: Accuchecks 08/13/19 08/13/19 08/12/19 10:48 05:41 21:25 POC Glucose 210 H 142 H 171 H 08/12/19 17:08 POC Glucose 158 H Hospitalist ROS - Medication Medications: Active Medications Generic Name Dose Route Start Last Admin Trade Name Freq PRN Reason Stop Dose Admin Albuterol Sulfate 2 puff 08/11/19 02:30 08/13/19 10:05 Proventil Hfa INH Not Given [id number] TARAH Albuterol/Ipratropium 3 ml 08/11/19 07:00 08/13/19 07:56 Duoneb NEB 3 ml [id number] TARAH Administration Amlodipine Besylate 5 mg 08/11/19 09:00 08/13/19 07:35 Norvasc PO 5 mg BID TARAH Administration Aspirin 81 mg 08/11/19 09:00 08/13/19 07:35 Ecotrin PO 81 mg DAILY TARAH Administration Carvedilol 25 mg 08/11/19 09:00 08/13/19 07:36 Coreg PO 25 mg BID TARAH Administration Dorzolamide/Timolol 1 drop 08/11/19 21:00 08/12/19 21:02 Cosopt 2-0.5% Ophth Soln EA EYE 1 drop HS TARAH Administration Enoxaparin Sodium 40 mg 08/11/19 09:00 08/13/19 07:36 Lovenox SC 40 mg 0900 TARAH Administration Fluticasone Propionate 0 gm 08/11/19 09:00 08/13/19 07:36 Flonase Nasal [place] NASAL 2 spr DAILY [facility]AH Administration Furosemide 40 mg 08/11/19 21:00 08/13/19 07:35 Lasix PO 40 mg BID TARAH Administration Hydralazine HCl 50 mg 08/11/19 09:00 08/13/19 07:35 Apresoline PO 50 mg BID TARAH Administration Levofloxacin 500 mg/ Device 100 mls @ 100 mls/hr 08/11/19 05:15 08/13/19 05: 14 IVPB 100 mls Q24HR TARAH Administration Insulin Human Lispro 0 units 08/10/19 23:49 08/13/19 10:53 Humalog SC 3 unit .MILD SLIDING SCALE PRN Administration Mild Correctional Scale Isosorbide Mononitrate 30 mg 08/11/19 09:00 08/13/19 07:34 Imdur PO 30 mg DAILY TARAH Administration Pantoprazole Sodium 40 mg 08/11/19 09:00 08/13/19 07:36 Protonix PO 40 mg DAILY TARAH Administration Simvastatin 10 mg 08/11/19 21:00 08/12/19 21:02 Zocor PO 10 mg HS TARAH Administration Sodium Chloride 10 ml 08/11/19 09:00 08/13/19 07:36 Flush - Normal Saline IVF 10 ml Q12HR TARAH Administration - Exam General Appearance: awake alert Eye: PERRL, anicteric sclera ENT: no oropharyngeal lesions, moist mucosa Neck: supple, no JVD Heart: RRR, no murmur Respiratory: no wheezes, no rales Gastrointestinal: soft, non-tender, non-distended, normal bowel sounds Extremities: no cyanosis, 2+ LE edema Neurological: cranial nerve grossly intact, no focal deficits Psychiatric: normal affect, A&O x 3 Hosp A/P (1) Acute respiratory failure Code(s): J96.00 - ACUTE RESPIRATORY FAILURE, UNSP W HYPOXIA OR HYPERCAPNIA Status: Resolved Qualifiers: Respiratory failure complication: hypoxia Qualified Code(s): J96.01 - Acute respiratory failure with hypoxia (2) Community acquired pneumonia Code(s): J18.9 - PNEUMONIA, UNSPECIFIED ORGANISM Status: Acute (3) VERO (acute kidney injury) Code(s): N17.9 - ACUTE KIDNEY FAILURE, UNSPECIFIED Status: Acute (4) Acute on chronic diastolic (congestive) heart failure Code(s): I50.33 - ACUTE ON CHRONIC DIASTOLIC (CONGESTIVE) HEART FAILURE Status : Acute (5) Anxiety and depression Code(s): F41.8 - OTHER SPECIFIED ANXIETY DISORDERS Status: Chronic (6) DM2 (diabetes mellitus, type 2) Status: Chronic Qualifiers: Diabetes mellitus retirement insulin use: without long term acute care registered nurse use Diabetes mellitus complication status: with other specified complication Qualified Code (s): E11.69 - Type 2 diabetes mellitus with other specified complication (7) HTN (hypertension) Code(s): I10 - ESSENTIAL (PRIMARY) HYPERTENSION Status: Chronic Qualifiers: Hypertension type: essential hypertension Qualified Code(s): I10 - Essential (primary) hypertension (8) Chronic anemia Code(s): D64.9 - ANEMIA, UNSPECIFIED Status: Chronic - Plan clinically his edema in LE is better and almost at baseline per patient and family at bedside. continue levaquin, nebs, norvasc, asp, coreg, hydralazine, lasix bid and imdur one dose zaroxolyn today. suggest he change his norvasc to lisinopril or another agent in view of chronic edema. has chronic likely lymphedema or venous stasis with right LE > left LE to mobilize as tolerated HH with PT and nursing on discharge Likely dc plan in am
[2019-08-13] MEDS ORDERED: Metolazone 5 MG TAB PO SCH (11:45)
[2019-08-13] MEDS: Simvastatin 20 MG TAB PO SCH (20:28)
[2019-08-13] MEDS: DorzolamidE/Timolol 2%/0.5% Ophth Soln 10 ml Bottle EA EYE SCH (21:24)
[2019-08-13] MEDS: Acetaminophen/Codeine 30-300mg Tablet PO PRN (23:19)
[2019-08-14] MEDS: PROVENTIL INHALER 6.7 G (200 INHALATIONS) INH SCH ×2 (01:19→07:23)
[2019-08-14] MEDS: Acetaminophen/Codeine 30-300mg Tablet PO PRN (04:44)
[2019-08-14 05:18] LABS: Anion Gap 13 mmol/L (10-20); BUN (Urea Nitrogen) 48 mg/dL (8.4-25.7); Calc. Creatinine Clearance 44 mL/min (70-130); Calcium 8.7 mg/dL (7.8-10.44); Carbon Dioxide 27 mmol/L (23-31); Chloride 102 mmol/L (98-107); Estimated GFR-MDRD 32; Glucose 161 mg/dL (83-110); Sodium 138 mmol/L (136-145)
[2019-08-14] MEDS: HumaLOG 300 UNITS/3 ML VIAL SC PRN (05:54)
[2019-08-14 07:52] VITALS: BP 179/80; TEMP 98.3
[2019-08-14] MEDS: Aspirin 81 mg Enteric Coated Tablet PO SCH (08:10)
[2019-08-14] MEDS: hydrALAZINE 25 MG TAB PO SCH (08:11)
[2019-08-14] MEDS: Carvedilol 25 MG TAB PO SCH (08:11)
[2019-08-14] MEDS: Furosemide 40 MG TAB PO SCH (08:11)
[2019-08-14] MEDS: Fluticasone Propionate Nasal Spray 16 gm Bottle NASAL SCH (08:11)
[2019-08-14] MEDS: Enoxaparin Sodium 40 MG/0.4 ML SYRINGE SC SCH (08:12)
[2019-08-14] MEDS: Amlodipine 5 MG TAB PO SCH (08:12)
--- NOTE | 2019-08-14 13:39 | DIS ---
DATE OF ADMISSION: 08/10/2019 DATE OF DISCHARGE: 08/14/2019 DISCHARGE DISPOSITION: Home. PRIMARY DISCHARGE DIAGNOSES: Acute respiratory failure with hypoxia, community-acquired pneumonia, acute kidney injury, congestive heart failure exacerbation with diastolic dysfunction. SECONDARY DISCHARGE DIAGNOSES: Diabetes mellitus type 2, anxiety, depression, hypertension, chronic anemia. PROCEDURES DONE DURING HOSPITALIZATION: The patient has had chest x-ray done on the day of admission, which showed decompensated congestive heart failure. Echo with 2D Doppler showed EF of 55-60%. There was diastolic dysfunction. Left atrium was ustdhjxi-sz-[id number] dilated. H and H of 9 and 29, platelet count 273, MCV is 87, white count of 7.5, BUN 48, creatinine 1.9 on the day of discharge. BNP 348. Troponin x3 negative. Albumin 3.8. Blood cultures x2, no growth. Respiratory cultures grew Moraxella catarrhalis. Respiratory virus panel PCR was negative. DISCHARGE PLAN: The patient to follow up with Dr. Megha Cahpman, his primary care physician in 1 week. He needs to follow up with Dr. Head on 09/14/2019 at 11:00 a.m. He will follow up with cardiac rehab on 08/28/2019 at 1:15 p.m. DISCHARGE MEDICATIONS: 1. Levaquin 250 mg p.o. daily for 4 days. 2. Imdur 30 mg p.o. daily. 3. Coreg 25 mg twice daily. 4. Januvia 50 mg daily. 5. Simvastatin 10 mg p.o. at bedtime. 6. Hydralazine 50 mg twice daily. 7. Lasix 40 mg twice daily. 8. Nexium 40 mg daily. 9. Cosopt eye drops as before. 10. Bromocriptine 10 mg twice daily. 11. Aspirin 81 mg daily. 12. Norvasc 5 mg twice daily. 13. Albuterol inhaler q.4 hourly p.r.n. 14. Tylenol No. 3 p.r.n. for pain. ALLERGIES: PENICILLIN. BRIEF COURSE DURING HOSPITALIZATION: The patient initially came in with complaints of shortness of breath and increasing swelling in both lower extremities. He has had cough with expectoration as well. He was essentially admitted for [id number] CHF exacerbation with diastolic dysfunction and pneumonia. His sputum cultures grew Moraxella catarrhalis. The patient was on Levaquin along with gentle diuresis and nebulization. He has responded well to above measures. His renal function has held up. He needs to continue Levaquin for another 4 more days. The patient has chronic likely lymphedema in both lower extremities. His right lower extremity is more swollen than left usually. He is hemodynamically stable and will be shortly discharged home. Please note, I have seen and examined the patient on the day of discharge. The patient would like to follow up with cardiac rehab along with PT. He did not want any placement. Full updates were given to him and his adopted son at bedside. His discharge plan was discussed with both of them prior to discharge. Job ID: [id number] [facility]ALTH[facility]im[facility]
--- NOTE | 2019-08-16 11:49 | PQF ---
ELMA BECKMAN VINAYA KUMAR MD [id number] NATALIA TAI [id number] CLINICAL DOCUMENTATION CLARIFICATION FORM: POST DISCHARGE Addendum to original discharge summary date: ____ Late entry note date: __ DATE:08/16/2019 ATTN:PRIMO AKERS MD Please exercise your independent, professional judgment in responding to the clarification form. Clinical indicators are provided on the bottom of this form for your review Please check appropriate box(s): [ x ] Pneumonia due to Moraxella catarrhalis [ ] Pneumonia not due to Moraxella catarrhalis [ ] Other diagnosis [ ] Unable to determine For continuity of documentation, please document condition throughout progress notes and discharge summary. Thank You. CLINICAL INDICATORS - SIGNS / SYMPTOMS / LABS Pneumonia -clinically this is more likely bacterial with productive sputum, of vasques-brown color-Documented in Hospitalist progress note 08/10 by Andi Muniz MD Acute respiratory failure due to pneumonia-Documented in Hospitalist progress note 08/10 by Andi Muniz MD His sputum cultures grew Moraxella catarrhalis-Documented in discharge summary on 08/13 by Tyson Rivera [employer] His sputum cultures grew Moraxella catarrhalis-Documented in discharge summary on 08/13 by Tyson Rivera TREATMENTS: Will continue Levaquin-Documented in Hospitalist progress note 08/10 by Andi Muniz MD The patient was on Levaquin-Documented in discharge summary on 08/13 by Tyson Rivera [employer] Teacher [employer] Winform Viewer (This form is maintained as a part of the permanent medical record) 2014 [employer]. All Rights Reserved Lesvia [phone] MTDD
--- NOTE | 2019-08-19 13:33 | EKG ---
Test Reason : Blood Pressure : / mmHG Vent. Rate : 062 BPM Atrial Rate : 042 BPM P-R Int : 000 ms QRS Dur : 138 ms QT Int : 456 ms P-R-T Axes : 000 -26 034 degrees QTc Int : 462 ms Wide QRS rhythm Left bundle branch block Abnormal ECG Confirmed by MERLINE DOVE, SHAUN ([id number]), electronic news gathering editor MAYUR ARMENDARIZ ([id number]) on 08/19/2019 1:33:22 PM Referred By: Confirmed By:SHAUN RICK MD
== END 2019-08-14 11:38 | disposition home or self-care (01) | DRG 177 ==
LOC: ERS 15:48 → ERHOLD 19:13 → 2SE 20:11
PROVIDERS: ADMIT Emergency Medicine; ATTEND Emergency Medicine
DX: J15.8 Pneumonia due to other specified bacteria (principal); J96.01 Acute respiratory failure with hypoxia; I50.33 Acute on chronic diastolic (congestive) heart failure; I13.0 Hypertensive heart and chronic kidney disease with heart failure and stage 1 through stage 4 chronic kidney disease, or unspecified chronic kidney disease; N17.9 Acute kidney failure, unspecified; F32.9 Major depressive disorder, single episode, unspecified; F41.9 Anxiety disorder, unspecified; B96.89 Other specified bacterial agents as the cause of diseases classified elsewhere; Z88.0 Allergy status to penicillin; R26.9 Unspecified abnormalities of gait and mobility; E11.22 Type 2 diabetes mellitus with diabetic chronic kidney disease; N18.3 Chronic kidney disease, stage 3 (moderate); D63.1 Anemia in chronic kidney disease
CPT/HCPCS: 36415; 36416; 71045; 80048; 80053; 81003; 81015; 82550; 82805; 83605; 83880; 84484; 85025; 87040; 87070; 87077; 87205; 87633; 87804; 93005; 93306; 93798; 94640; 94644; 94664; 96374; 99215; G0463; J0360; J1650; J1940; J1956; J7611; J7620

== ENCOUNTER 2019-08-16 11:19 | Emergency (ER) | payer MEDICARE ==
[2019-08-16] MEDS ORDERED: Furosemide 40 MG/4 ML VIAL ONE (11:58)
--- NOTE | 2019-08-16 12:06 | RAD ---
EXAM: Single view of the chest HISTORY: Chest pain COMPARISON: 08/10/2019 FINDINGS: Single view of the chest shows an enlarged but stable cardiomediastinal silhouette. There i s a small right pleural effusion. Bibasilar atelectasis is seen. A calcified granuloma seen projecting over the left thorax. The bones are unremarkable. IMPRESSION: Right pleural effusion and bibasilar atelectasis
[2019-08-16 12:17] LABS: #Eosinphils 0.2 thou/uL (0.0-0.7); #Lymphocytes 1.9 thou/uL (1.20-3.40); #Monocytes 0.8 thou/uL (0.11-0.59); #Neutrophils 4.8 thou/uL (1.40-6.50); %Basophils 0.2 % (0.0-1.0); %Eosinophils 2.6 % (0.0-10.0); %Lymphocytes 24.8 % (21.0-51.0); %Monocytes 10.5 % (0.0-10.0); Hemoglobin 8.7 g/dL (14.0-18.0); Mean Corpuscular HGB CONC 32.3 g/dL (32.0-36.0); Mean Corpuscular Hemoglobin 27.8 pg (27.0-31.0); Mean Corpuscular Volume 86.1 fL (78.0-98.0); Mean Platelet Volume 6.4 fL (7.4-10.4); Platelet Count 234 thou/uL (130-400); RBC Distribution Width 14.1 % (11.5-14.5); Red Blood Cell (RBC) Count 3.12 mill/uL (4.70-6.10); White Blood Cell (WBC) Count 7.8 thou/uL (4.8-10.8)
[2019-08-16 12:41] LABS: ALT (SGPT) 13 U/L (8-55); AST (SGOT) 17 U/L (5-34); Albumin 3.7 g/dL (3.4-4.8); Alkaline Phosphatase 126 U/L (40-110); Anion Gap 13 mmol/L (10-20); BUN (Urea Nitrogen) 52 mg/dL (8.4-25.7); Bilirubin, Total 0.4 mg/dL (0.2-1.2); Calc. Creatinine Clearance 0 mL/min (70-130); Calcium 8.9 mg/dL (7.8-10.44); Carbon Dioxide 27 mmol/L (23-31); Chloride 95 mmol/L (98-107); Estimated GFR-MDRD 27; Globulin 3.6 g/dL (2.4-3.5); Glucose 196 mg/dL (83-110); Potassium 4.1 mmol/L (3.5-5.1); Protein, Total 7.3 g/dL (5.8-8.1); Sodium 131 mmol/L (136-145)
[2019-08-16 12:42] LABS: Bilirubin Negative (Negative); Blood, Urine Negative (Negative); Clarity Clear (Clear); Glucose, Urine (Dipstick) Normal (Negative); Leukocyte Negative Leu/uL (Negative); Nitrite Negative (Negative); Protein, Urine (Dipstick) Negative (Neg-Trace); Urobilinogen Normal mg/dL (Less than 2)
[2019-08-16] MEDS ORDERED: Ketorolac Tromethamine 30 MG/ML VIAL ONE (17:35)
== END 2019-08-16 20:20 | disposition home or self-care (01) ==
LOC: ERS 11:19
DX: R09.02 Hypoxemia (principal); R05 Cough; E78.00 Pure hypercholesterolemia, unspecified; I13.0 Hypertensive heart and chronic kidney disease with heart failure and stage 1 through stage 4 chronic kidney disease, or unspecified chronic kidney disease; E11.22 Type 2 diabetes mellitus with diabetic chronic kidney disease; N18.3 Chronic kidney disease, stage 3 (moderate); I50.9 Heart failure, unspecified; E11.42 Type 2 diabetes mellitus with diabetic polyneuropathy; Z79.899 Other long term (current) drug therapy
CPT/HCPCS: 71045; 80053; 81003; 83605; 83880; 84484; 85025; 93005; 94640; 96374; 96375; J1885; J1940; J7620

== ENCOUNTER 2020-04-01 09:55 | Inpatient (IN) | payer MEDICARE ==
[2020-04-01] MEDS ORDERED: Nitroglycerin 2% Ointment 1 INCH/1 GM Packet ONE (11:01)
[2020-04-01] MEDS ORDERED: Furosemide 40 MG/4 ML VIAL ONE (11:01)
[2020-04-01 11:10] LABS: #Basophils 0.1 thou/uL (0.0-0.2); #Eosinphils 0.1 thou/uL (0.0-0.7); #Lymphocytes 1.3 thou/uL (1.20-3.40); #Monocytes 0.9 thou/uL (0.11-0.59); %Basophils 0.7 % (0.0-1.0); %Eosinophils 1.1 % (0.0-10.0); %Lymphocytes 15.5 % (21.0-51.0); %Monocytes 10.7 % (0.0-10.0); %Neutrophils 72.1 % (42.0-75.0); Hemoglobin 8.9 g/dL (14.0-18.0); Mean Corpuscular HGB CONC 31.8 g/dL (32.0-36.0); Mean Corpuscular Hemoglobin 26.5 pg (27.0-31.0); Mean Corpuscular Volume 83.3 fL (78.0-98.0); Mean Platelet Volume 6.5 fL (7.4-10.4); Platelet Count 252 thou/uL (130-400); Red Blood Cell (RBC) Count 3.37 mill/uL (4.70-6.10); White Blood Cell (WBC) Count 8.4 thou/uL (4.8-10.8)
[2020-04-01 11:45] LABS: ALT (SGPT) 7 U/L (8-55); AST (SGOT) 12 U/L (5-34); Alkaline Phosphatase 110 U/L (40-110); Anion Gap 14 mmol/L (10-20); BUN (Urea Nitrogen) 51 mg/dL (8.4-25.7); Bilirubin, Total 0.6 mg/dL (0.2-1.2); Calc. Creatinine Clearance 0 mL/min (70-130); Calcium 9.1 mg/dL (7.8-10.44); Carbon Dioxide 26 mmol/L (23-31); Chloride 97 mmol/L (98-107); Estimated GFR-MDRD 30; Globulin 4.2 g/dL (2.4-3.5); Glucose 174 mg/dL (83-110); Potassium 3.9 mmol/L (3.5-5.1); Protein, Total 8.2 g/dL (5.8-8.1); Sodium 133 mmol/L (136-145)
--- NOTE | 2020-04-01 12:10 | RAD ---
PORTABLE CHEST: Date: 04/01/2020 HISTORY: Dyspnea. History of congestive failure. COVID test pending. COMPARISON: 08/17/2019 exam. FINDINGS: Heart size is enlarged. Pulmonary vessels are engorged. There is some parenchymal change in the right upper lobe. It is actually less prominent than on the prior exam and may just indicate scarring. Bib asilar lung changes on basis of atelectasis with effusions. IMPRESSION: 1. Cardiomegaly with pulmonary vascular engorgement suggesting pulmonary edema changes with small bi lateral effusions. 2. Some of the right upper lobe parenchymal changes are actually less prominent than the prior exam. These residual changes could be scarring. Bibasilar lung changes have the appearance more suggestive of atelectasis. POS: YOANNA
[2020-04-01] MEDS ORDERED: Senokot S 8.6-50 MG TAB PO PRN (13:40)
[2020-04-01 14:57] LABS: Troponin I Less than 0.010 ng/mL (< 0.028)
[2020-04-01] MEDS ORDERED: Dextrose 50% Abboject 50 ML SYRINGE SLOW IVP PRN (15:22)
[2020-04-01] MEDS ORDERED: Dextrose 5% in Water 1,000 ML IV PRN (15:22)
[2020-04-01] MEDS ORDERED: Rivaroxaban 10 MG TAB PO SCH (18:00)
[2020-04-01 19:11] LABS: Troponin I Less than 0.010 ng/mL (< 0.028)
[2020-04-01 19:20] VITALS: BMI 31.1
--- NOTE | 2020-04-01 19:42 | HP ---
CHIEF COMPLAINT: Shortness of breath. HISTORY OF PRESENT ILLNESS: The patient is an 89-year-old man with a history of diastolic heart failure and hypertension, who presented to the hospital with complaints of shortness of breath, worsening for the past 3 days. The patient states that since Wednesday, he has been having increasing weight gain, lower extremity swelling, orthopnea, and shortness of breath. He denies any chest tightness or chest pain. He states that he has been very compliant with his blood pressure and his diuretics at home. He denies eating any salty foods. He also denies any sick contacts. PAST MEDICAL HISTORY: As of the following, 1. He has a past medical history of hyperlipidemia. 2. Diabetes. 3. Hypertension. 4. CHF. 5. Chronic kidney disease, stage 3. PAST SURGICAL HISTORY: He has had a cataract surgery, lumbar disk surgery, and stent in his left kidney. SOCIAL HISTORY: He denies any alcohol use or drug use. He lives with his , and he is a full code. Denies any recreational drug use. ALLERGIES: HE IS ALLERGIC TO PENICILLIN. MEDICATIONS: He is on; 1. Amlodipine 5 mg daily. 2. Simvastatin 10 mg daily. 3. Aspirin 81 mg daily. 4. Carvedilol 25 mg b.i.d. 5. Lasix 40 mg daily. 6. Protonix 40 mg daily. REVIEW OF SYSTEMS: All negative except for the ones mentioned above in the HPI. FAMILY HISTORY: No history of heart disease or stroke. PHYSICAL EXAMINATION: VITAL SIGNS: As of the following; temperature of 97.7, pulse 86, blood pressure 127/81, respirations 20, and O2 saturation is 94% on 4 L. GENERAL: He is awake, alert, and oriented x3. Does not appear in distress. CV: Irregularly irregular. LUNGS: Mild crackles to bilateral lung bases. ABDOMEN: Soft, obese. Bowel sounds are present x2. EXTREMITIES: He has pitting edema all the way up to his thigh. Significant, he does have chronic venous changes to his bilateral lower legs. NEUROVASCULAR: No focal deficits noted. SKIN: As I mentioned, he has some bilateral lower extremity chronic venous changes. LABORATORY RESULTS: As of the following, his EKG indicated atrial fibrillation, rate controlled. Chest x-ray showed some pulmonary vascular congestion upon my interpretation. His BNP was 400, which was elevated from his previous one. Sodium of 133, potassium of 3.9, BUN of 51, creatinine of 2.13. His troponin x1 was negative. WBCs of 8.4, hemoglobin of 8.9, hematocrit of 28.1, and his platelets were 252. ASSESSMENT AND PLAN: The patient is an 89-year-old male who presents to the hospital with worsening shortness of breath. 1. Acute on chronic diastolic heart failure. I will start the patient on some IV diuretics. We will daily weigh him. We will start him on a low sodium, fluid restriction diet. His blood pressure currently was controlled. We will get Cardiology to see him. He has had a recent echocardiogram in July, which indicated an ejection fraction of 55% to 60% with some mild tricuspid and mild mitral regurgitation. I will not repeat the echo unless Cardiology feels it is needed. 2. Atrial fibrillation. The patient has had an ablation in the past in 2016 for his atrial flutter. He is currently not on any anticoagulation. I asked him if he had any bleeding disorder in the past, he denies. I will start him on 2.5 mg Eliquis b.i.d. and of course, Cardiology has been consulted. We will check also a TSH on him. 3. Acute hypoxic respiratory failure. His oxygen saturation was 89% on room air. When he came to the hospital, currently, he is on 4 L. He is saturating about 95% to 97%. He is not a smoker. This is most likely secondary to volume overload. We will continue to monitor. 4. Deep venous thrombosis prophylaxis. The patient is already on Eliquis. We will continue with that. 5. Hypertension. We will continue his home medications. 6. Diabetes. We will continue his home medications and start him on sliding scale. Job ID: [id number]
[2020-04-01] MEDS: Apixaban 2.5 MG TAB PO SCH (20:49)
[2020-04-02 04:26] LABS: #Lymphocytes 1.3 thou/uL (1.20-3.40); #Monocytes 0.8 thou/uL (0.11-0.59); #Neutrophils 4.9 thou/uL (1.40-6.50); %Basophils 0.2 % (0.0-1.0); %Eosinophils 0.6 % (0.0-10.0); %Lymphocytes 18.8 % (21.0-51.0); %Monocytes 10.9 % (0.0-10.0); %Neutrophils 69.5 % (42.0-75.0); Hemoglobin 8.7 g/dL (14.0-18.0); Mean Corpuscular HGB CONC 31.1 g/dL (32.0-36.0); Mean Corpuscular Hemoglobin 25.7 pg (27.0-31.0); Mean Corpuscular Volume 82.5 fL (78.0-98.0); Mean Platelet Volume 6.6 fL (7.4-10.4); Platelet Count 243 thou/uL (130-400); RBC Distribution Width 15.8 % (11.5-14.5); Red Blood Cell (RBC) Count 3.38 mill/uL (4.70-6.10)
[2020-04-02 04:48] LABS: Anion Gap 16 mmol/L (10-20); BUN (Urea Nitrogen) 47 mg/dL (8.4-25.7); Calc. Creatinine Clearance 48 mL/min (70-130); Calcium 9.1 mg/dL (7.8-10.44); Carbon Dioxide 25 mmol/L (23-31); Chloride 98 mmol/L (98-107); Estimated GFR-MDRD 37; Glucose 127 mg/dL (83-110); Potassium 3.6 mmol/L (3.5-5.1); Sodium 135 mmol/L (136-145)
[2020-04-02] MEDS: Apixaban 2.5 MG TAB PO SCH ×2 (08:20→21:42)
[2020-04-02] MEDS: Furosemide 40 MG/4 ML VIAL SLOW IVP SCH (08:20)
[2020-04-02] MEDS: Aspirin 81 mg Enteric Coated Tablet PO SCH (08:20)
[2020-04-02] MEDS ORDERED: Enoxaparin Sodium 40 MG/0.4 ML SYRINGE SC SCH (09:00)
[2020-04-02 12:14] LABS: SARS-CoV-2 MS2 Positive; SARS-CoV-2 N Gene Negative; SARS-CoV-2 S Gene Negative; SARS-CoV-2 by NAA Not Detected (NotDetected); SARS-CoV-2 orf1ab Negative
[2020-04-02] MEDS ORDERED: cloNIDine 0.1 MG TAB PO PRN (13:18)
--- NOTE | 2020-04-02 13:22 | PDOC.HOSPP ---
- Subjective Encounter Date: 04/02/20 Subjective: The patient's shortness of breath is improving. - Objective Vital Signs & Weight: Vital Signs (12 hours) Temp Pulse Pulse Pulse Resp BP BP 04/02/20 12:02 97.6 F 83 18 04/02/20 08:59 82 82 167/72 H 142/65 H 04/02/20 08:17 98.7 F 84 22 H 04/02/20 08:00 04/02/20 04:25 98.0 F 83 22 H 04/02/20 04:00 98.2 F 73 15 BP BP Pulse Ox 04/02/20 12:02 156/78 H 98 04/02/20 08:59 04/02/20 08:17 159/75 H 97 04/02/20 08:00 98 04/02/20 04:25 136/72 96 04/02/20 04:00 163/70 H 96 Weight Weight 255 lb 4.8 oz I&O: 04/01/20 04/02/20 04/03/20 06:59 06:59 06:59 Intake Total 400 Output Total 950 Balance -550 Result Diagrams: 04/02/20 03:59 04/02/20 03:59 Additional Labs: Accuchecks 04/02/20 04/02/20 04/01/20 10:35 05:33 19:59 POC Glucose 134 H 118 H 174 H Hospitalist ROS - Medication Medications: Active Medications Generic Name Dose Route Start Last Admin Trade Name Freq PRN Reason Stop Dose Admin Apixaban 2.5 mg 04/01/20 21:00 04/02/20 08:20 Apixaban 2.5 Mg Tab PO 2.5 mg BID TARAH Administration Aspirin 81 mg 04/02/20 09:00 04/02/20 08:20 Aspirin 81 Mg Enteric Coated Tablet PO 81 mg DAILY TARAH Administration Furosemide 40 mg 04/02/20 09:00 04/02/20 08:20 Furosemide 40 Mg/4 Ml Vial SLOW IVP 40 mg DAILY TARAH Administration - Exam General Appearance: awake alert ENT: normocephalic atraumatic Neck: supple, no JVD Heart: irregular Respiratory: normal chest expansion, no tachypnea Neurological: cranial nerve grossly intact, no focal deficits Hosp A/P (1) Acute on chronic diastolic (congestive) heart failure Code(s): I50.33 - ACUTE ON CHRONIC DIASTOLIC (CONGESTIVE) HEART FAILURE Status: Acute (2) DM2 (diabetes mellitus, type 2) Status: Chronic Qualifiers: (3) CKD (chronic kidney disease) stage 2, GFR 60-89 ml/min Code(s): N18.2 - CHRONIC KIDNEY DISEASE, STAGE 2 (MILD) Status: Chronic (4) HTN (hypertension) Code(s): I10 - ESSENTIAL (PRIMARY) HYPERTENSION Status: Chronic Qualifiers: (5) Atrial fibrillation Code(s): I48.91 - UNSPECIFIED ATRIAL FIBRILLATION Status: Acute - Plan Continue diuresis. Negative fluid balance over the past 24 hours. His home blood pressure medications were really started that she felt that her blood pressure control. Continue low-salt diet and strict intake and output. Patient is on carvedilol and Eliquis for atrial fibrillation.
[2020-04-02] MEDS ORDERED: Albuterol Sulfate 2.5 mg/3 ml Neb NEB PRN (13:42)
--- NOTE | 2020-04-02 15:02 | CON ---
DATE OF CONSULTATION: REASON FOR CONSULTATION: Shortness of breath. HISTORY OF PRESENT ILLNESS: Mr. Hanson is a very pleasant 89-year-old gentleman, who I have seen and evaluated in the past. He has a previous history of atrial flutter, status post ablation. He recently presented with shortness of breath. His shortness of breath had been noted over the last 10 days. No changes in diet were noted. He has had increased weight present. His last echo in the office dated 2018. His LVEF at that time was 55% to 60% with diastolic dysfunction. Last stress study dated 2018 with LVEF 58% with no significant ischemia present. He also recently presented with new onset atrial fibrillation. PAST MEDICAL HISTORY: Hypertension, renal artery stenosis status post stent placement, malignant hypertension, atrial flutter status post ablation, chronic kidney disease, sleep apnea, hyperlipidemia, diabetes mellitus, macular degeneration, venous reflux. PAST SURGICAL HISTORY: Status post stent placement to left renal artery in 2015. HOME MEDICATIONS: Include; 1. Isosorbide. 2. Albuterol. 3. Lasix. 4. Januvia. 5. Tylenol. 6. Hydralazine. 7. Simvastatin. 8. Amlodipine. 9. Flonase. 10. Coreg. REVIEW OF SYSTEMS: A 10-point review of systems is reviewed as above, otherwise negative. PHYSICAL EXAMINATION: VITAL SIGNS: Blood pressure 156/78, pulse 83, temperature 97.6. General: The patient is a pleasant gentleman, in no acute distress, appears stated age. Head, Eyes, Ears, Nose and Throat: Sclerae without icterus. Mouth: Moist mucous membranes, normal palate. Neck: No jugular venous distention. Carotid upstroke is brisk. No bruits bilaterally. Lungs: Crackles noted bilaterally. Heart: Irregularly irregular. Abdomen: Soft, nontender, nondistended. Extremities: No edema. PERTINENT LABORATORY DATA: Hemoglobin 8.7. IMPRESSION: 1. New onset atrial fibrillation. 2. Shortness of breath. 3. Diastolic dysfunction. 4. Anemia. 5. Hypertension. RECOMMENDATIONS: After review of his previous hemoglobin, it appears his hemoglobin has been in the 8 to 10 range. He does have chronic kidney disease with GFR of 37. At this point, I recommend anticoagulation therapy with Eliquis as prescribed. We will control the patient's heart rate and continue diuresis with IV Lasix. Once he is rate controlled and diuresed, I would recommend anticoagulation therapy over 4 weeks, then schedule cardioversion. We will review echo. Job ID: [id number]
[2020-04-02] MEDS: Carvedilol 25 MG TAB PO SCH (21:42)
[2020-04-02] MEDS: Amlodipine 5 MG TAB PO SCH (21:42)
[2020-04-02] MEDS: hydrALAZINE 25 MG TAB PO SCH (21:42)
[2020-04-02] MEDS: Simvastatin 10 MG TAB PO SCH (21:44)
[2020-04-03 03:56] LABS: Hemoglobin 8.6 g/dL (14.0-18.0); Platelet Count 228 thou/uL (130-400)
[2020-04-03] MEDS: Apixaban 2.5 MG TAB PO SCH ×2 (08:33→20:16)
[2020-04-03] MEDS: Aspirin 81 mg Enteric Coated Tablet PO SCH (08:34)
[2020-04-03] MEDS: Carvedilol 25 MG TAB PO SCH ×2 (08:34→20:16)
[2020-04-03] MEDS: Furosemide 40 MG/4 ML VIAL SLOW IVP SCH (08:34)
[2020-04-03] MEDS: Amlodipine 5 MG TAB PO SCH ×2 (08:34→20:16)
[2020-04-03] MEDS: hydrALAZINE 25 MG TAB PO SCH ×2 (08:35→20:16)
[2020-04-03] MEDS: Acetaminophen 325 MG TAB PO PRN (09:40)
--- NOTE | 2020-04-03 15:43 | PDOC.HOSPP ---
- Subjective Encounter Date: 04/03/20 Subjective: Patient is feeling better today. He is still requiring oxygen. Lower extremity edema is improving. - Objective Vital Signs & Weight: Vital Signs (12 hours) Temp Pulse Pulse Pulse Resp BP BP 04/03/20 12:00 98.3 F 71 20 04/03/20 09:42 84 74 159/70 H 04/03/20 08:35 79 04/03/20 08:34 79 167/77 H 04/03/20 08:00 97.6 F 79 18 BP BP Pulse Ox Pulse Ox Pulse Ox 04/03/20 12:00 113/54 L 96 04/03/20 09:42 140/64 97 97 04/03/20 08:35 04/03/20 08:34 04/03/20 08:00 167/77 H 97 Weight Weight 255 lb 4.8 oz I&O: 04/02/20 04/03/20 04/04/20 06:59 06:59 06:59 Intake Total 400 480 Output Total 950 550 Balance -550 -70 Result Diagrams: 04/03/20 03:43 04/03/20 03:43 Additional Labs: Accuchecks 04/03/20 04/03/20 04/02/20 10:41 05:38 20:24 POC Glucose 143 H 126 H 146 H 04/02/20 16:38 POC Glucose 188 H Hospitalist ROS - Medication Medications: Active Medications Generic Name Dose Route Start Last Admin Trade Name Freq PRN Reason Stop Dose Admin Acetaminophen 650 mg 04/01/20 13:40 04/03/20 09:40 Acetaminophen 325 Mg Tab PO 650 mg Q8H PRN Administration Headache/Fever/Mild Pain (1-3) Amlodipine Besylate 5 mg 04/02/20 21:00 04/03/20 08:34 Amlodipine 5 Mg Tab PO 5 mg BID TARAH Administration Apixaban 2.5 mg 04/01/20 21:00 04/03/20 08:33 Apixaban 2.5 Mg Tab PO 2.5 mg BID TARAH Administration Aspirin 81 mg 04/02/20 09:00 04/03/20 08:34 Aspirin 81 Mg Enteric Coated Tablet PO 81 mg DAILY TARAH Administration Carvedilol 25 mg 04/02/20 21:00 04/03/20 08:34 Carvedilol 25 Mg Tab PO 25 mg BID TARAH Administration Furosemide 40 mg 04/02/20 09:00 04/03/20 08:34 Furosemide 40 Mg/4 Ml Vial SLOW IVP 40 mg DAILY TARAH Administration Hydralazine HCl 50 mg 04/02/20 21:00 04/03/20 08:35 Hydralazine 25 Mg Tab PO 50 mg BID TARAH Administration Isosorbide Mononitrate 30 mg 04/03/20 09:00 04/03/20 08:34 Isosorbide Mononitrate Er 30 Mg Tab PO 30 mg DAILY TARAH Administration Pantoprazole Sodium 40 mg 04/03/20 09:00 04/03/20 08:34 Pantoprazole 40 Mg Tab PO 40 mg DAILY TARAH Administration Simvastatin 10 mg 04/02/20 21:00 04/02/20 21:44 Simvastatin 10 Mg Tab PO 10 mg HS TARAH Administration - Exam General Appearance: awake alert ENT: normocephalic atraumatic Neck: supple, no JVD Heart: RRR Respiratory: normal chest expansion, no tachypnea Neurological: cranial nerve grossly intact, no focal deficits Hosp A/P (1) Acute on chronic diastolic (congestive) heart failure Code(s): I50.33 - ACUTE ON CHRONIC DIASTOLIC (CONGESTIVE) HEART FAILURE Status: Acute (2) DM2 (diabetes mellitus, type 2) Status: Chronic Qualifiers: (3) CKD (chronic kidney disease) stage 2, GFR 60-89 ml/min Code(s): N18.2 - CHRONIC KIDNEY DISEASE, STAGE 2 (MILD) Status: Chronic (4) HTN (hypertension) Code(s): I10 - ESSENTIAL (PRIMARY) HYPERTENSION Status: Chronic Qualifiers: (5) Atrial fibrillation Code(s): I48.91 - UNSPECIFIED ATRIAL FIBRILLATION Status: Acute - Plan Redness of breath and lower extremity edema are improving. Continue diuresis. Negative fluid balance over the past 24 hours. Echocardiogram showing preserved EF. Continue low-salt diet and strict intake and output. Patient is on carvedilol and Eliquis for atrial fibrillation.
--- NOTE | 2020-04-03 17:03 | PRG ---
DATE OF SERVICE: 04/03/2020 SUBJECTIVE: Mr. Hanson is doing better. He is seen sitting up. He has less shortness of breath. He has diuresed. OBJECTIVE: VITAL SIGNS: Blood pressure 135/65, pulse 89, temperature 98.5. LUNGS: Crackles noted bilaterally. HEART: . ABDOMEN: Soft, nontender, nondistended. EXTREMITIES: No edema. PERTINENT LABORATORY DATA: Hemoglobin 8.6. Creatinine 1.55. shows atrial fibrillation with a 4-beat run of nonsustained VT. Echo Doppler shows normal LVEF. IMPRESSION: 1. Atrial fibrillation, new onset. 2. Coronary artery disease. 3. Hypertension. RECOMMENDATIONS: Continue rate control. The patient appears to be well controlled currently. Continue IV Lasix. Would increase to 40 mg b.i.d. Continue Eliquis in addition to aspirin and carvedilol. Heart rate appears stable. Plan is to rate control and anticoagulate. If he continues to have symptoms, we then consider cardioversion as outpatient. Job ID: [id number]
[2020-04-03] MEDS: Simvastatin 10 MG TAB PO SCH (20:18)
[2020-04-04 04:42] LABS: #Basophils 0.1 thou/uL (0.0-0.2); #Eosinphils 0.1 thou/uL (0.0-0.7); #Lymphocytes 1.4 thou/uL (1.20-3.40); #Monocytes 0.8 thou/uL (0.11-0.59); %Basophils 0.8 % (0.0-1.0); %Eosinophils 1.3 % (0.0-10.0); %Monocytes 12.8 % (0.0-10.0); %Neutrophils 63.1 % (42.0-75.0); Hemoglobin 7.9 g/dL (14.0-18.0); Mean Corpuscular HGB CONC 30.6 g/dL (32.0-36.0); Mean Corpuscular Hemoglobin 25.9 pg (27.0-31.0); Mean Corpuscular Volume 84.6 fL (78.0-98.0); Mean Platelet Volume 6.9 fL (7.4-10.4); Platelet Count 217 thou/uL (130-400); RBC Distribution Width 15.9 % (11.5-14.5); Red Blood Cell (RBC) Count 3.05 mill/uL (4.70-6.10); White Blood Cell (WBC) Count 6.3 thou/uL (4.8-10.8)
[2020-04-04 05:01] LABS: Anion Gap 13 mmol/L (10-20); BUN (Urea Nitrogen) 49 mg/dL (8.4-25.7); Calc. Creatinine Clearance 49 mL/min (70-130); Calcium 8.8 mg/dL (7.8-10.44); Carbon Dioxide 28 mmol/L (23-31); Chloride 102 mmol/L (98-107); Estimated GFR-MDRD 37; Glucose 143 mg/dL (83-110); Potassium 3.5 mmol/L (3.5-5.1); Sodium 139 mmol/L (136-145)
[2020-04-04] MEDS: Aspirin 81 mg Enteric Coated Tablet PO SCH (09:10)
[2020-04-04] MEDS: hydrALAZINE 25 MG TAB PO SCH ×2 (09:10→21:00)
[2020-04-04] MEDS: Carvedilol 25 MG TAB PO SCH ×2 (09:10→21:00)
[2020-04-04] MEDS: Furosemide 40 MG/4 ML VIAL SLOW IVP SCH ×2 (09:10→14:31)
[2020-04-04] MEDS: Amlodipine 5 MG TAB PO SCH ×2 (09:11→21:00)
[2020-04-04] MEDS: Apixaban 2.5 MG TAB PO SCH ×2 (09:11→21:00)
--- NOTE | 2020-04-04 16:42 | PDOC.HOSPP ---
- Subjective Encounter Date: 04/04/20 Subjective: Shortness of breath and lower extremity edema is improving. - Objective Vital Signs & Weight: Vital Signs (12 hours) Temp Pulse Pulse Pulse Resp BP BP 04/04/20 11:41 98.1 F 71 20 04/04/20 09:11 76 04/04/20 09:10 76 04/04/20 08:34 70 74 177/77 H 158/70 H 04/04/20 08:00 04/04/20 07:12 97.9 F 76 18 BP Pulse Ox Pulse Ox Pulse Ox 04/04/20 11:41 133/63 97 04/04/20 09:11 04/04/20 09:10 04/04/20 08:34 93 L 97 04/04/20 08:00 97 04/04/20 07:12 175/76 H 97 Weight Weight 251 lb 1.6 oz I&O: 04/03/20 04/04/20 04/05/20 06:59 06:59 06:59 Intake Total 480 120 Output Total 550 200 Balance -70 -80 Result Diagrams: 04/05/20 04:09 04/05/20 04:09 Additional Labs: Accuchecks 04/04/20 04/04/20 04/03/20 10:18 05:53 19:54 POC Glucose 156 H 141 H 159 H 04/03/20 17:02 POC Glucose 148 H Hospitalist ROS - Medication Medications: Active Medications Generic Name Dose Route Start Last Admin Trade Name Freq PRN Reason Stop Dose Admin Acetaminophen 650 mg 04/01/20 13:40 04/03/20 09:40 Acetaminophen 325 Mg Tab PO 650 mg Q8H PRN Administration Headache/Fever/Mild Pain (1-3) Amlodipine Besylate 5 mg 04/02/20 21:00 04/04/20 09:11 Amlodipine 5 Mg Tab PO 5 mg BID TARAH Administration Apixaban 2.5 mg 04/01/20 21:00 04/04/20 09:11 Apixaban 2.5 Mg Tab PO 2.5 mg BID TARAH Administration Aspirin 81 mg 04/02/20 09:00 04/04/20 09:10 Aspirin 81 Mg Enteric Coated Tablet PO 81 mg DAILY TARAH Administration Carvedilol 25 mg 04/02/20 21:00 04/04/20 09:10 Carvedilol 25 Mg Tab PO 25 mg BID TARAH Administration Furosemide 40 mg 04/04/20 09:00 04/04/20 14:31 Furosemide 40 Mg/4 Ml Vial SLOW IVP 40 mg 0900,1300 TARAH Administration Hydralazine HCl 50 mg 04/02/20 21:00 04/04/20 09:10 Hydralazine 25 Mg Tab PO 50 mg BID TARAH Administration Isosorbide Mononitrate 30 mg 04/03/20 09:00 04/04/20 09:10 Isosorbide Mononitrate Er 30 Mg Tab PO 30 mg DAILY TARAH Administration Pantoprazole Sodium 40 mg 04/03/20 09:00 04/04/20 09:11 Pantoprazole 40 Mg Tab PO 40 mg DAILY TARAH Administration Simvastatin 10 mg 04/02/20 21:00 04/03/20 20:18 Simvastatin 10 Mg Tab PO 10 mg HS TARAH Administration - Exam General Appearance: awake alert ENT: normocephalic atraumatic Neck: supple, no JVD Heart: irregular Respiratory: normal chest expansion, no tachypnea Neurological: cranial nerve grossly intact, no new deficit Hosp A/P (1) Acute on chronic diastolic (congestive) heart failure Code(s): I50.33 - ACUTE ON CHRONIC DIASTOLIC (CONGESTIVE) HEART FAILURE Status: Acute (2) DM2 (diabetes mellitus, type 2) Status: Chronic Qualifiers: (3) CKD (chronic kidney disease) stage 2, GFR 60-89 ml/min Code(s): N18.2 - CHRONIC KIDNEY DISEASE, STAGE 2 (MILD) Status: Chronic (4) HTN (hypertension) Code(s): I10 - ESSENTIAL (PRIMARY) HYPERTENSION Status: Chronic Qualifiers: (5) Atrial fibrillation Code(s): I48.91 - UNSPECIFIED ATRIAL FIBRILLATION Status: Acute - Plan Shortness of breath and lower extremity edema are improving. Continue IV diuresis. Negative fluid balance over the past 24 hours. Echocardiogram showing preserved EF. Continue low-salt diet and strict intake and output. Patient is on carvedilol and Eliquis for atrial fibrillation. His rate is currently controlled.
--- NOTE | 2020-04-04 18:34 | PDOC.CPN ---
- Subjective Date: 04/04/20 Time: 12:50 Interval history: Patient without complaints. No CP, SOB or FALLON. Rate-controlled. - Review of Systems General: denies: fever/chills, weight/appetite/sleep changes, night sweats, fatigue Respiratory: reports: shortness of breath (states chronic). denies: cough, congestion, exercise intolerance Cardiovascular: denies: chest pain, palpitation, edema, paroxysmal nocturnal dyspnea, orthopnea Gastrointestinal: denies: nausea, vomiting, diarrhea, constipation, abd pain, GI bleeding Musculoskeletal: denies: pain, tenderness, stiffness, swelling, arthritis/arthralgias Neurological: denies: numbness, syncope, seizure, weakness - Objective Allergies/Adverse Reactions: Allergies Allergy/AdvReac Type Severity Reaction Status Date / Time Penicillins Allergy Intermediate Verified 08/20/19 15:12 Visit Medications: Current Medications Acetaminophen (Acetaminophen 325 Mg Tab) 650 mg PO Q8H PRN PRN Reason: Headache/Fever/Mild Pain (1-3) Last Admin: 04/03/20 09:40 Dose: 650 mg Documented by: Albuterol Sulfate (Albuterol Sulfate 2.5 Mg/3 Ml Neb) 2.5 mg NEB Q4HR PRN PRN Reason: Wheezing or Cough Amlodipine Besylate (Amlodipine 5 Mg Tab) 5 mg PO BID [facility] Last Admin: 04/04/20 09:11 Dose: 5 mg Documented by: Apixaban (Apixaban 2.5 Mg Tab) 2.5 mg PO BID [facility] Last Admin: 04/04/20 09:11 Dose: 2.5 mg Documented by: Aspirin (Aspirin 81 Mg Enteric Coated Tablet) 81 mg PO DAILY [facility] Last Admin: 04/04/20 09:10 Dose: 81 mg Documented by: Carvedilol (Carvedilol 25 Mg Tab) 25 mg PO BID [facility] Last Admin: 04/04/20 09:10 Dose: 25 mg Documented by: Clonidine (Clonidine 0.1 Mg Tab) 0.1 mg PO BID PRN PRN Reason: hypertension > 180 Dextrose/Water (Dextrose 50% Abboject 50 Ml Syringe) 25 gm SLOW IVP PRN PRN PRN Reason: Hypoglycemia Furosemide (Furosemide 40 Mg/4 Ml Vial) 40 mg SLOW IVP 0900,1300 [facility] Last Admin: 04/04/20 14:31 Dose: 40 mg Documented by: Glucagon (Glucagon 1 Mg/Ml Vial) 1 mg IM PRN PRN PRN Reason: Hypoglycemia Hydralazine HCl (Hydralazine 25 Mg Tab) 50 mg PO BID [facility] Last Admin: 04/04/20 09:10 Dose: 50 mg Documented by: Dextrose/Water (D5w) 1,000 mls @ 0 mls/hr IV .Q0M PRN PRN Reason: Hypoglycemia Insulin Human Lispro (Humalog 300 Units/3 Ml Vial) 0 units SC .MILD SLIDING SCALE PRN PRN Reason: Mild Correctional Scale Isosorbide Mononitrate (Isosorbide Mononitrate Er 30 Mg Tab) 30 mg PO DAILY [facility] Last Admin: 04/04/20 09:10 Dose: 30 mg Documented by: Pantoprazole Sodium (Pantoprazole 40 Mg Tab) 40 mg PO DAILY [facility] Last Admin: 04/04/20 09:11 Dose: 40 mg Documented by: Senna/Docusate Sodium (Senokot S 8.6-50 Mg Tab) 2 tab PO BIDPRN PRN PRN Reason: Constipation Simvastatin (Simvastatin 10 Mg Tab) 10 mg PO HS [facility] Last Admin: 04/03/20 20:18 Dose: 10 mg Documented by: Vital Signs & Weight: Vital Signs Temp Pulse Pulse Pulse Resp BP BP 04/04/20 11:41 98.1 F 71 20 04/04/20 09:11 76 04/04/20 09:10 76 04/04/20 08:34 70 74 177/77 H 158/70 H 04/04/20 08:00 04/04/20 07:12 97.9 F 76 18 BP Pulse Ox Pulse Ox Pulse Ox 04/04/20 11:41 133/63 97 04/04/20 09:11 04/04/20 09:10 04/04/20 08:34 93 L 97 04/04/20 08:00 97 04/04/20 07:12 175/76 H 97 Weight 251 lb 1.6 oz - Physical Exam General: alert & oriented x3, appears well, no apparent distress HEENT: mucus membranes moist Neck: supple neck Cardiac: other (IRR IRR) Lungs: normal breath sounds, bibasilar rales Neuro: grossly intact Abdomen: soft, non-tender Extremities: 1+ LE edema Skin: clear Musculoskeletal: normal range of motion - Labs Result Diagrams: 04/04/20 03:50 04/04/20 03:50 Troponin/CKMB Troponin I Less than 0.010 ng/mL (< 0.028) 04/01/20 18:25 - Assessment/Plan Assessment/Plan: 1. New-onset AF 2. Hx AFlutter s/p RFA. 3. HTN 4. Anemia Rate-controlled. Asymptomatic. Will discuss ACT with RG. May need to hold Eliquis/consider Watchman. Patient higher risk of complications.
[2020-04-04] MEDS: Simvastatin 10 MG TAB PO SCH (21:00)
[2020-04-04] MEDS: Vit A,C & E/Lutein/Minerals Tablet PO SCH (21:00)
[2020-04-04] MEDS ORDERED: DorzolamidE/Timolol 2%/0.5% Ophth Soln 10 ml Bottle EA EYE SCH (21:00)
[2020-04-05] MEDS: Acetaminophen 325 MG TAB PO PRN ×2 (02:04→11:41)
[2020-04-05 05:09] LABS: #Eosinphils 0.1 thou/uL (0.0-0.7); #Lymphocytes 1.4 thou/uL (1.20-3.40); #Monocytes 0.8 thou/uL (0.11-0.59); #Neutrophils 4.4 thou/uL (1.40-6.50); %Basophils 0.1 % (0.0-1.0); %Eosinophils 1.3 % (0.0-10.0); %Lymphocytes 21.3 % (21.0-51.0); %Monocytes 11.9 % (0.0-10.0); %Neutrophils 65.3 % (42.0-75.0); Hemoglobin 7.5 g/dL (14.0-18.0); Mean Corpuscular Hemoglobin 26.2 pg (27.0-31.0); Mean Corpuscular Volume 84.6 fL (78.0-98.0); Mean Platelet Volume 6.9 fL (7.4-10.4); Platelet Count 205 thou/uL (130-400); RBC Distribution Width 15.8 % (11.5-14.5); Red Blood Cell (RBC) Count 2.87 mill/uL (4.70-6.10); White Blood Cell (WBC) Count 6.7 thou/uL (4.8-10.8)
[2020-04-05 05:31] LABS: Anion Gap 13 mmol/L (10-20); BUN (Urea Nitrogen) 51 mg/dL (8.4-25.7); Calc. Creatinine Clearance 48 mL/min (70-130); Calcium 8.7 mg/dL (7.8-10.44); Carbon Dioxide 28 mmol/L (23-31); Chloride 102 mmol/L (98-107); Estimated GFR-MDRD 36; Glucose 137 mg/dL (83-110); Potassium 3.4 mmol/L (3.5-5.1); Sodium 140 mmol/L (136-145)
[2020-04-05] MEDS: Amlodipine 5 MG TAB PO SCH ×2 (09:05→21:06)
[2020-04-05] MEDS: Vit A,C & E/Lutein/Minerals Tablet PO SCH ×2 (09:05→21:06)
[2020-04-05] MEDS: Aspirin 81 mg Enteric Coated Tablet PO SCH (09:05)
[2020-04-05] MEDS: Apixaban 2.5 MG TAB PO SCH (09:06)
[2020-04-05] MEDS: hydrALAZINE 25 MG TAB PO SCH ×2 (09:06→21:06)
[2020-04-05] MEDS: Furosemide 40 MG/4 ML VIAL SLOW IVP SCH ×2 (09:06→12:46)
[2020-04-05] MEDS: Carvedilol 25 MG TAB PO SCH ×2 (09:06→21:06)
[2020-04-05] MEDS: Bromocriptine 2.5 MG TAB PO SCH (11:42)
--- NOTE | 2020-04-05 11:57 | RAD ---
CHEST ONE VIEW: Comparison: 04-01-2020 History: Shortness of breath FINDINGS: Heart size is enlarged. Pulmonary vessels are engorged. Some patchy parenchymal lung changes are jammie lar to the previous exam. Pleural lung changes are stable. IMPRESSION: Cardiomegaly with bilateral effusions and pulmonary vascular engorgement. These changes are similar t o the prior examination. In addition, there are findings that would suggest possibly an associated in filtrate. The changes are fairly similar to the prior exam. One exception may be that some of the rig ht upper lobe parenchymal changes may be slightly increased. This could be a combination of an elemen t of edema and a pneumonic type process. Clinical correlation recommended. POS: Tari
[2020-04-05] MEDS: HumaLOG 300 UNITS/3 ML VIAL SC PRN (12:44)
--- NOTE | 2020-04-05 13:02 | PRG ---
DATE OF SERVICE: 04/05/2020 SUBJECTIVE: Mr. Hanson is doing better. He feels better overall. Less shortness of breath. Less lower extremity edema. His hemoglobin unfortunately has decreased. It was down to 7.9. OBJECTIVE: VITAL SIGNS: Blood pressure 142/65, pulse 73, temperature 98.4. LUNGS: Decreased breath sounds bilaterally at the bases. Otherwise, clear. HEART: Irregularly irregular. ABDOMEN: Soft, nontender, nondistended. EXTREMITIES: 1 to 2+ pitting edema. PERTINENT LABORATORY DATA: Hemoglobin 7.5, down from a baseline of 8.9. IMPRESSION: 1. Shortness of breath. 2. New-onset atrial fibrillation. 3. Lower extremity edema. 4. Anemia. RECOMMENDATIONS: Mr. Hanson overall feels much better. He has had less lower extremity edema and shortness of breath. Unfortunately, he has been on Eliquis with a decrease in his hemoglobin. May need to consider consulting with GI. We will stop his anticoagulation therapy. We would recommend possibly consulting with GI. We will leave at the discretion of the primary team. There is a risk of stroke, but I feel compelled to stop his anticoagulation therapy with a continued drop in hemoglobin. We will guaiac all stools. Job ID: [id number]
[2020-04-05] MEDS: Latanoprost 0.005% Ophth Soln 2.5 ml Bottle EA EYE SCH ×2 (16:18→21:10)
--- NOTE | 2020-04-05 16:52 | PDOC.HOSPP ---
- Subjective Encounter Date: 04/05/20 Subjective: The patient's shortness of breath improved since yesterday. Lower extremity edema is also improving. He was able to ambulate without significant shortness of breath today. He is requiring less oxygen. - Objective Vital Signs & Weight: Vital Signs (12 hours) Temp Pulse Pulse Pulse Resp BP BP 04/05/20 16:00 97.8 F 71 18 04/05/20 11:45 98.4 F 73 16 04/05/20 08:27 73 70 146/65 H 142/63 H 04/05/20 08:00 98.1 F 73 18 BP Pulse Ox Pulse Ox Pulse Ox 04/05/20 16:00 128/59 L 96 04/05/20 11:45 142/65 H 96 04/05/20 08:27 96 93 L 04/05/20 08:00 121/58 L 98 Weight Weight 254 lb 12.8 oz I&O: 04/04/20 04/05/20 04/06/20 06:59 06:59 06:59 Intake Total 120 Output Total 200 Balance -80 Result Diagrams: 04/05/20 04:09 04/05/20 04:09 Additional Labs: Accuchecks 04/05/20 04/05/20 04/04/20 10:34 05:58 20:19 POC Glucose 188 H 129 H 231 H 04/04/20 16:57 POC Glucose 165 H Hospitalist ROS - Medication Medications: Active Medications Generic Name Dose Route Start Last Admin Trade Name Freq PRN Reason Stop Dose Admin Acetaminophen 650 mg 04/01/20 13:40 04/05/20 11:41 Acetaminophen 325 Mg Tab PO 650 mg Q8H PRN Administration Headache/Fever/Mild Pain (1-3) Amlodipine Besylate 5 mg 04/02/20 21:00 04/05/20 09:05 Amlodipine 5 Mg Tab PO 5 mg BID TARAH Administration Aspirin 81 mg 04/02/20 09:00 04/05/20 09:05 Aspirin 81 Mg Enteric Coated Tablet PO 81 mg DAILY TARAH Administration Bromocriptine Mesylate 10 mg 04/05/20 09:00 04/05/20 11:42 Bromocriptine 2.5 Mg Tab PO 10 mg QAM TARAH Administration Carvedilol 25 mg 04/02/20 21:00 04/05/20 09:06 Carvedilol 25 Mg Tab PO 25 mg BID TARAH Administration Furosemide 40 mg 04/04/20 09:00 04/05/20 12:46 Furosemide 40 Mg/4 Ml Vial SLOW IVP 40 mg 0900,1300 TARAH Administration Hydralazine HCl 50 mg 04/02/20 21:00 04/05/20 09:06 Hydralazine 25 Mg Tab PO 50 mg BID TARAH Administration Insulin Human Lispro 0 units 04/01/20 15:22 04/05/20 12:44 Humalog 300 Units/3 Ml Vial SC 2 unit .MILD SLIDING SCALE PRN Administration Mild Correctional Scale Isosorbide Mononitrate 30 mg 04/03/20 09:00 04/05/20 09:05 Isosorbide Mononitrate Er 30 Mg Tab PO 30 mg DAILY TARAH Administration Latanoprost 1 drop 04/04/20 21:00 04/05/20 16:18 Latanoprost 0.005% Ophth Soln 2.5 Ml Bottle EA EYE Not Given HS [facility] Multivitamins/Minerals 1 tab 04/04/20 21:00 04/05/20 09:05 Vit A,C & E/Lutein/Minerals Tablet PO 1 tab BID TARAH Administration Pantoprazole Sodium 40 mg 04/03/20 09:00 04/05/20 09:06 Pantoprazole 40 Mg Tab PO 40 mg DAILY TARAH Administration Simvastatin 10 mg 04/02/20 21:00 04/04/20 21:00 Simvastatin 10 Mg Tab PO 10 mg HS TARAH Administration - Exam General Appearance: awake alert ENT: normocephalic atraumatic Neck: supple, no JVD Respiratory: normal chest expansion, no tachypnea Gastrointestinal: soft, non-tender, non-distended Extremities: 1+ LE edema Neurological: cranial nerve grossly intact, no focal deficits Hosp A/P (1) Acute on chronic diastolic (congestive) heart failure Code(s): I50.33 - ACUTE ON CHRONIC DIASTOLIC (CONGESTIVE) HEART FAILURE Status: Acute (2) DM2 (diabetes mellitus, type 2) Status: Chronic Qualifiers: (3) CKD (chronic kidney disease) stage 2, GFR 60-89 ml/min Code(s): N18.2 - CHRONIC KIDNEY DISEASE, STAGE 2 (MILD) Status: Chronic (4) HTN (hypertension) Code(s): I10 - ESSENTIAL (PRIMARY) HYPERTENSION Status: Chronic Qualifiers: (5) Atrial fibrillation Code(s): I48.91 - UNSPECIFIED ATRIAL FIBRILLATION Status: Acute - Plan Shortness of breath and lower extremity edema are improving. He is diuresing well. Echocardiogram showing preserved EF. Continue low-salt diet and strict intake and output. Patient is on carvedilol. His rate is currently controlled. Eliquis has been held due to the patient's hemoglobin trending down. His anemia is microcytic and hypochromic. No evidence of overt bleeding. Check iron studies and fecal occult blood. Consult GI if the patient has iron deficiency anemia or if occult blood test is positive.
[2020-04-05 17:30] LABS: Iron 18 ug/dL (65-175); Iron Binding Capacity, Total 314 mcg/dL (261-462)
[2020-04-05] MEDS: Simvastatin 10 MG TAB PO SCH (21:06)
[2020-04-05] MEDS: DorzolamidE/Timolol 2%/0.5% Ophth Soln 10 ml Bottle EA EYE SCH (21:07)
[2020-04-06] MEDS: Acetaminophen 325 MG TAB PO PRN (01:29)
[2020-04-06 03:57] LABS: #Eosinphils 0.1 thou/uL (0.0-0.7); #Lymphocytes 1.4 thou/uL (1.20-3.40); #Monocytes 0.6 thou/uL (0.11-0.59); #Neutrophils 3.4 thou/uL (1.40-6.50); %Basophils 0.3 % (0.0-1.0); %Eosinophils 1.7 % (0.0-10.0); %Lymphocytes 25.4 % (21.0-51.0); %Monocytes 11.2 % (0.0-10.0); %Neutrophils 61.4 % (42.0-75.0); Hemoglobin 7.4 g/dL (14.0-18.0); Mean Corpuscular HGB CONC 31.2 g/dL (32.0-36.0); Mean Corpuscular Hemoglobin 26.3 pg (27.0-31.0); Mean Corpuscular Volume 84.3 fL (78.0-98.0); Mean Platelet Volume 6.4 fL (7.4-10.4); Platelet Count 183 thou/uL (130-400); RBC Distribution Width 15.9 % (11.5-14.5); Red Blood Cell (RBC) Count 2.83 mill/uL (4.70-6.10); White Blood Cell (WBC) Count 5.5 thou/uL (4.8-10.8)
[2020-04-06 04:17] LABS: Anion Gap 14 mmol/L (10-20); BUN (Urea Nitrogen) 50 mg/dL (8.4-25.7); Calc. Creatinine Clearance 50 mL/min (70-130); Calcium 8.8 mg/dL (7.8-10.44); Carbon Dioxide 27 mmol/L (23-31); Chloride 102 mmol/L (98-107); Estimated GFR-MDRD 38; Glucose 148 mg/dL (83-110); Potassium 3.7 mmol/L (3.5-5.1); Sodium 139 mmol/L (136-145)
[2020-04-06] MEDS: Carvedilol 25 MG TAB PO SCH ×2 (08:49→21:14)
[2020-04-06] MEDS: Vit A,C & E/Lutein/Minerals Tablet PO SCH ×2 (08:49→21:14)
[2020-04-06] MEDS: Aspirin 81 mg Enteric Coated Tablet PO SCH (08:50)
[2020-04-06] MEDS: Furosemide 40 MG/4 ML VIAL SLOW IVP SCH ×2 (08:50→13:26)
[2020-04-06] MEDS: Amlodipine 5 MG TAB PO SCH ×2 (08:50→21:14)
[2020-04-06] MEDS: hydrALAZINE 25 MG TAB PO SCH ×2 (08:50→21:14)
[2020-04-06] MEDS: DorzolamidE/Timolol 2%/0.5% Ophth Soln 10 ml Bottle EA EYE SCH ×2 (08:53→21:14)
[2020-04-06] MEDS: Bromocriptine 2.5 MG TAB PO SCH (10:37)
--- NOTE | 2020-04-06 16:26 | PDOC.HOSPP ---
- Subjective Subjective: Pt was seen and examined. sob much improved. still having significant lower ext swelling. Hb trended down but stablized last couple days, at 7.4. Denies of melena or hematochezia. Pt stated that he had an EGD done few years ago, unable to recall Eliquis on hold stool guiaic neg x 1 - Objective Vital Signs & Weight: Vital Signs (12 hours) Temp Pulse Pulse Pulse Resp BP BP 04/06/20 15:51 97.9 F 69 24 H 04/06/20 14:41 71 69 172/72 H 115/56 L 04/06/20 11:47 98 F 74 19 04/06/20 08:50 78 04/06/20 08:00 97.1 F L 78 18 BP Pulse Ox Pulse Ox Pulse Ox 04/06/20 15:51 134/56 L 93 L 04/06/20 14:41 91 L 91 L 04/06/20 11:47 126/58 L 95 04/06/20 08:50 04/06/20 08:00 175/74 H 93 L Weight Weight 253 lb I&O: 04/05/20 04/06/20 04/07/20 06:59 06:59 06:59 Intake Total 600 Balance 600 Result Diagrams: 04/06/20 03:43 04/06/20 03:43 Additional Labs: Accuchecks 04/06/20 04/06/20 04/06/20 16:01 10:57 05:35 POC Glucose 158 H 136 H 138 H 04/05/20 04/05/20 20:22 16:45 POC Glucose 201 H 130 H Radiology Reviewed by me: Yes EKG Reviewed by me: Yes Hospitalist ROS - Medication Medications: Active Medications Generic Name Dose Route Start Last Admin Trade Name Freq PRN Reason Stop Dose Admin Acetaminophen 650 mg 04/01/20 13:40 04/06/20 01:29 Acetaminophen 325 Mg Tab PO 650 mg Q8H PRN Administration Headache/Fever/Mild Pain (1-3) Amlodipine Besylate 5 mg 04/02/20 21:00 04/06/20 08:50 Amlodipine 5 Mg Tab PO 5 mg BID TARAH Administration Aspirin 81 mg 04/02/20 09:00 04/06/20 08:50 Aspirin 81 Mg Enteric Coated Tablet PO 81 mg DAILY TARAH Administration Bromocriptine Mesylate 10 mg 04/05/20 09:00 04/06/20 10:37 Bromocriptine 2.5 Mg Tab PO 10 mg QAM TARAH Administration Carvedilol 25 mg 04/02/20 21:00 04/06/20 08:49 Carvedilol 25 Mg Tab PO 25 mg BID TARAH Administration Dorzolamide/Timolol 1 drop 04/05/20 21:00 04/06/20 08:53 Dorzolamide/Timolol 2%/0.5% Ophth Soln 10 Ml Bottle EA EYE 1 drop BID TARAH Administration Furosemide 40 mg 04/04/20 09:00 04/06/20 13:26 Furosemide 40 Mg/4 Ml Vial SLOW IVP 40 mg 0900,1300 TARAH Administration Hydralazine HCl 50 mg 04/02/20 21:00 04/06/20 08:50 Hydralazine 25 Mg Tab PO 50 mg BID TARAH Administration Insulin Human Lispro 0 units 04/01/20 15:22 04/05/20 12:44 Humalog 300 Units/3 Ml Vial SC 2 unit .MILD SLIDING SCALE PRN Administration Mild Correctional Scale Isosorbide Mononitrate 30 mg 04/03/20 09:00 04/06/20 08:50 Isosorbide Mononitrate Er 30 Mg Tab PO 30 mg DAILY TARAH Administration Latanoprost 1 drop 04/04/20 21:00 04/05/20 21:10 Latanoprost 0.005% Ophth Soln 2.5 Ml Bottle EA EYE 1 drop HS TARAH Administration Multivitamins/Minerals 1 tab 04/04/20 21:00 04/06/20 08:49 Vit A,C & E/Lutein/Minerals Tablet PO 1 tab BID TARAH Administration Pantoprazole Sodium 40 mg 04/03/20 09:00 04/06/20 08:50 Pantoprazole 40 Mg Tab PO 40 mg DAILY TARAH Administration Simvastatin 10 mg 04/02/20 21:00 04/05/20 21:06 Simvastatin 10 Mg Tab PO 10 mg HS TARAH Administration - Exam General Appearance: NAD Eye: PERRL ENT: normocephalic atraumatic Neck: supple Heart: RRR Respiratory: rhonchi Gastrointestinal: soft, non-tender Extremities: no cyanosis, 2+ LE edema Skin: normal turgor Neurological: cranial nerve grossly intact Musculoskeletal: normal tone Psychiatric: normal affect Hosp A/P - Plan CHF exac, acute on chronic diastolic HF --cont IV diuresis, monitor I&O and daily weight PAF --Eliquis on hold d/t Hb trending down --rate controlled with Coreg Chronic Anemia - Hb trending down --Eliquis on hold. No sign of overt bleeding at this time, stool guaic neg x 1 --GI consult to see if further workup is warranted at this time before resume AC --rpt CBC in AM HTN - controlled --cont BB CKD 3 --Cr stable monitor DM 2 --BG stable. Sitagliptin on hold. Cont ISS
--- NOTE | 2020-04-06 16:28 | EKG ---
Test Reason : Blood Pressure : / mmHG Vent. Rate : 073 BPM Atrial Rate : 062 BPM P-R Int : 000 ms QRS Dur : 136 ms QT Int : 440 ms P-R-T Axes : 000 007 063 degrees QTc Int : 484 ms Atrial fibrillation with a competing junctional pacemaker Non-specific intra-ventricular conduction block Abnormal ECG Confirmed by NANCY RODRIGUEZ DO ([id number]), manager editorial MAYUR ARMENDARIZ ([id number]) on 04/06/2020 4:27:55 PM Referred By: Confirmed By:NANCY RODRIGUEZ DO
[2020-04-06] MEDS ORDERED: Iron, Sodium Ferric Gluconate 250 MG in Sodium Chloride 0.9% 100 ML IVPB SCH (17:45)
--- NOTE | 2020-04-06 18:00 | CON ---
DATE OF CONSULTATION: 04/06/2020 REASON FOR CONSULTATION: Anemia. HISTORY OF PRESENT ILLNESS: Mr. Hanson is a pleasant 89-year-old male who was admitted to the hospital on 04/01 for shortness of breath. He has a history of heart failure and atrial flutter with previous ablation. He was told to have a new onset atrial fibrillation. He also has anemia, but this has been chronic. He has had a Hemoccult this admission on 04/05, which was negative and had Hemoccults x3 in December, which were negative. He has had documented low iron. He has an MCV that is 84, a ferritin of 51 on 04/05/2020, an iron of 18, and a TIBC of 314. B12 and folate were normal in December of this year. In talking with the patient, he has had no melena, hematochezia, or hematemesis. He has had his previous endoscopic evaluations as an outpatient in 2013 and in July of 2018. Most recent of those exams showed diminutive colon polyps and no Elkins's. He has a known large hiatal hernia. Denies any change in appetite, dysphagia, odynophagia, or hematemesis. He has no change in bowel function. Denies black stools. PAST MEDICAL HISTORY: Atrial fibrillation with previous ablation with recurrence, diabetes, hyperlipidemia, CHF, hypertension, chronic kidney disease stage 3, chronic anemia. PAST SURGICAL HISTORY: Cataract surgery, lumbar disk surgery, stent in left kidney, and endoscopies as noted in HPI. SOCIAL HISTORY: Negative for alcohol, drugs, or tobacco. He lives with his . ALLERGIES: PENICILLIN. MEDICATIONS: He is on, 1. Amlodipine. 2. Simvastatin. 3. Aspirin. 4. Carvedilol. 5. Lasix. 6. Protonix. PRESENT MEDICATIONS: 1. Tylenol. 2. Ventolin. 3. Norvasc. 4. Carvedilol. 5. Furosemide. 6. Imdur. 7. Protonix. 8. Senokot. 9. Simvastatin. REVIEW OF SYSTEMS: Dyspnea and edema persists. No chest pain. No dysuria. No hematuria. FAMILY HISTORY: Negative for colorectal cancer or liver disease. PHYSICAL EXAMINATION: VITAL SIGNS: Temperature 97, pulse 69, respirations 19 to 24, saturations 93% on 1.5 L nasal cannula, blood pressure 134/56. ABDOMEN: Soft and nontender. LUNGS: Clear. HEART: Regular rate and rhythm without clicks or murmurs. EXTREMITIES: Reveal edema 3+. NEUROLOGIC: He is alert and oriented to person, place, and time. ASSESSMENT: 1. Chronic anemia with heme-negative stools 4 times since December of this year. No signs of acute bleeding. 2. Iron deficiency, chronic, likely related to his large hiatal hernia. 3. Prior history of colon polyps, benign. Last examination was in July of 2018. RECOMMENDATIONS: 1. Consider giving this patient some IV iron to get his blood count up. 2. At this time, I will continue a PPI for ulcer prophylaxis. He is high risk for Erik's erosions and ulcerations of the stomach, which can cause anemia. 3. I would not recommend endoscopy in this patient presently with decompensated heart failure and recent endoscopy within the past 2 years, which have been nonrevealing. He has no signs of acute or chronic bleeding at this point in time with multiple stools heme-negative. I will try the iron. He has been anemic for 3 years. We will follow. Job ID: [id number]
[2020-04-06] MEDS: Latanoprost 0.005% Ophth Soln 2.5 ml Bottle EA EYE SCH (21:13)
[2020-04-06] MEDS: Simvastatin 10 MG TAB PO SCH (21:14)
[2020-04-07 04:38] LABS: #Eosinphils 0.1 thou/uL (0.0-0.7); #Lymphocytes 1.4 thou/uL (1.20-3.40); #Monocytes 0.6 thou/uL (0.11-0.59); #Neutrophils 3.3 thou/uL (1.40-6.50); %Basophils 0.7 % (0.0-1.0); %Eosinophils 1.5 % (0.0-10.0); %Lymphocytes 25.6 % (21.0-51.0); %Monocytes 11.6 % (0.0-10.0); %Neutrophils 60.6 % (42.0-75.0); Hemoglobin 7.6 g/dL (14.0-18.0); Mean Corpuscular HGB CONC 31.3 g/dL (32.0-36.0); Mean Corpuscular Hemoglobin 26.5 pg (27.0-31.0); Mean Corpuscular Volume 84.8 fL (78.0-98.0); Mean Platelet Volume 6.7 fL (7.4-10.4); Platelet Count 189 thou/uL (130-400); Red Blood Cell (RBC) Count 2.86 mill/uL (4.70-6.10); White Blood Cell (WBC) Count 5.4 thou/uL (4.8-10.8)
[2020-04-07 04:43] LABS: INR-International Normal Ratio 1.3; Prothrombin Time 16.4 sec (12.0-14.7)
[2020-04-07 04:59] LABS: Anion Gap 14 mmol/L (10-20); BUN (Urea Nitrogen) 51 mg/dL (8.4-25.7); Calc. Creatinine Clearance 54 mL/min (70-130); Calcium 8.7 mg/dL (7.8-10.44); Carbon Dioxide 27 mmol/L (23-31); Chloride 100 mmol/L (98-107); Estimated GFR-MDRD 42; Glucose 144 mg/dL (83-110); Potassium 3.5 mmol/L (3.5-5.1); Sodium 137 mmol/L (136-145)
[2020-04-07] MEDS: Vit A,C & E/Lutein/Minerals Tablet PO SCH ×2 (08:27→21:56)
[2020-04-07] MEDS: hydrALAZINE 25 MG TAB PO SCH ×2 (08:27→21:55)
[2020-04-07] MEDS: Carvedilol 25 MG TAB PO SCH ×2 (08:28→21:56)
[2020-04-07] MEDS: Aspirin 81 mg Enteric Coated Tablet PO SCH (08:28)
[2020-04-07] MEDS: Furosemide 40 MG/4 ML VIAL SLOW IVP SCH ×2 (08:28→13:24)
[2020-04-07] MEDS: Amlodipine 5 MG TAB PO SCH ×2 (08:28→21:57)
[2020-04-07] MEDS: DorzolamidE/Timolol 2%/0.5% Ophth Soln 10 ml Bottle EA EYE SCH ×2 (08:32→21:58)
[2020-04-07] MEDS: Bromocriptine 2.5 MG TAB PO SCH (08:32)
[2020-04-07] MEDS: Acetaminophen 325 MG TAB PO PRN ×2 (11:18→22:04)
[2020-04-07] MEDS ORDERED: Iron, Sodium Ferric Gluconate 250 MG in Sodium Chloride 0.9% 100 ML IVPB SCH (12:00)
--- NOTE | 2020-04-07 12:17 | PRG ---
DATE OF SERVICE: 04/07/2020 SUBJECTIVE: Mr. Hanson is without complaints today. He has had no bleeding in fact, he has had no bowel movements. OBJECTIVE: VITAL SIGNS: Temperature 97, pulse 78, and blood pressure . ABDOMEN: Soft and nontender. EXTREMITIES: Reveal 3+ edema. LABORATORY DATA: White count 5.4, hemoglobin 7.6, and platelet count 189. BUN 51 and creatinine 1.56. ASSESSMENT: Iron deficiency, heme-negative stool with this admission and x3 in December. The patient has had extensive GI workup just two years ago for this with large hiatal hernia noted and a few small polyps. RECOMMENDATIONS: 1. Iron supplementation, if one wants to get his hemoglobin up acutely, if that will help his heart failure, transfusion would reasonable to get his hemoglobin greater than 9 in this patient with cardiac disease. Otherwise, consider repeating iron infusion. If there are signs of acute GI hemorrhage, would consider repeat endoscopy. I would rather try to avoid that during his acute CHF exacerbation, especially as he has no signs of GI bleeding. 2. He does have a large hiatal hernia and he should remain on iron supplementation and PPI in the outpatient setting to diminish risk of chronic GI blood loss from Erik's erosions associated with large hernias. Job ID: [id number]
--- NOTE | 2020-04-07 13:14 | PDOC.HOSPP ---
- Subjective Subjective: Patient was seen examined at bedside. No evidence of acute bleeding. His hemoglobin remained stable. He was given IV Vanderford yesterday by GI. I have discussed the risk and the benefit resume his Eliquis, patient verbalized understanding and agreeable with the plan. - Objective Vital Signs & Weight: Vital Signs (12 hours) Temp Pulse Pulse Pulse Resp BP BP 04/07/20 11:49 68 69 134/61 147/69 H 04/07/20 11:20 97.0 F L 78 17 04/07/20 08:28 72 04/07/20 08:27 72 04/07/20 08:00 04/07/20 07:59 96.9 F L 72 18 04/07/20 04:00 98.1 F 61 18 BP Pulse Ox Pulse Ox Pulse Ox 04/07/20 11:49 91 L 93 L 04/07/20 11:20 134/61 94 L 04/07/20 08:28 04/07/20 08:27 04/07/20 08:00 94 L 04/07/20 07:59 146/62 H 94 L 04/07/20 04:00 137/63 93 L Weight Weight 252 lb 9.6 oz I&O: 04/06/20 04/07/20 04/08/20 06:59 06:59 06:59 Intake Total 600 720 Output Total 600 Balance 600 120 Result Diagrams: 04/07/20 04:05 04/07/20 04:05 Additional Labs: Accuchecks 04/07/20 04/06/20 04/06/20 10:58 21:38 16:01 POC Glucose 147 H 190 H 158 H Radiology Reviewed by me: Yes EKG Reviewed by me: Yes Hospitalist ROS - Medication Medications: Active Medications Generic Name Dose Route Start Last Admin Trade Name Freq PRN Reason Stop Dose Admin Acetaminophen 650 mg 04/01/20 13:40 04/07/20 11:18 Acetaminophen 325 Mg Tab PO 650 mg Q8H PRN Administration Headache/Fever/Mild Pain (1-3) Amlodipine Besylate 5 mg 04/02/20 21:00 04/07/20 08:28 Amlodipine 5 Mg Tab PO 5 mg BID TARAH Administration Aspirin 81 mg 04/02/20 09:00 04/07/20 08:28 Aspirin 81 Mg Enteric Coated Tablet PO 81 mg DAILY TARAH Administration Bromocriptine Mesylate 10 mg 04/05/20 09:00 04/07/20 08:32 Bromocriptine 2.5 Mg Tab PO 10 mg QAM TARAH Administration Carvedilol 25 mg 04/02/20 21:00 04/07/20 08:28 Carvedilol 25 Mg Tab PO 25 mg BID TARAH Administration Dorzolamide/Timolol 1 drop 04/05/20 21:00 04/07/20 08:32 Dorzolamide/Timolol 2%/0.5% Ophth Soln 10 Ml Bottle EA EYE 1 drop BID TARAH Administration Furosemide 40 mg 04/04/20 09:00 04/07/20 08:28 Furosemide 40 Mg/4 Ml Vial SLOW IVP 40 mg 0900,1300 TARAH Administration Hydralazine HCl 50 mg 04/02/20 21:00 04/07/20 08:27 Hydralazine 25 Mg Tab PO 50 mg BID TARAH Administration Insulin Human Lispro 0 units 04/01/20 15:22 04/05/20 12:44 Humalog 300 Units/3 Ml Vial SC 2 unit .MILD SLIDING SCALE PRN Administration Mild Correctional Scale Isosorbide Mononitrate 30 mg 04/03/20 09:00 04/07/20 08:28 Isosorbide Mononitrate Er 30 Mg Tab PO 30 mg DAILY TARAH Administration Latanoprost 1 drop 04/04/20 21:00 04/06/20 21:13 Latanoprost 0.005% Ophth Soln 2.5 Ml Bottle EA EYE 1 drop HS TARAH Administration Multivitamins/Minerals 1 tab 04/04/20 21:00 04/07/20 08:27 Vit A,C & E/Lutein/Minerals Tablet PO 1 tab BID TARAH Administration Pantoprazole Sodium 40 mg 04/03/20 09:00 04/07/20 08:27 Pantoprazole 40 Mg Tab PO 40 mg DAILY TARAH Administration Simvastatin 10 mg 04/02/20 21:00 04/06/20 21:14 Simvastatin 10 Mg Tab PO 10 mg HS TARAH Administration - Exam General Appearance: NAD Eye: PERRL ENT: normocephalic atraumatic Neck: supple Heart: RRR Respiratory: CTAB, no wheezes Gastrointestinal: soft, non-tender Extremities: no cyanosis, no clubbing, 2+ LE edema Skin: normal turgor Neurological: cranial nerve grossly intact Musculoskeletal: normal tone Psychiatric: normal affect, normal behavior, A&O x 3 Hosp A/P - Plan CHF exac, acute on chronic diastolic HF --cont IV diuresis, monitor I&O and daily weight PAF --Since his hemoglobin remained stable. No further endoscopic studies recommended from GI. We will cautiously resume his Eliquis at renally dose, 2.5 mg twice daily --rate controlled with Coreg Chronic Anemia, iron def - Hb stable --appreciate GI input --s/p Venofer, cont PO supplement. Follow CBC HTN - controlled --cont BB CKD 3 --Cr stable monitor DM 2 --BG stable. Sitagliptin on hold. Cont ISS
[2020-04-07] MEDS ORDERED: Loperamide HCl 2 MG CAP PO PRN (14:47)
[2020-04-07] MEDS: Apixaban 2.5 MG TAB PO SCH (21:58)
[2020-04-07] MEDS: Latanoprost 0.005% Ophth Soln 2.5 ml Bottle EA EYE SCH (21:59)
[2020-04-07] MEDS: Simvastatin 10 MG TAB PO SCH (22:02)
[2020-04-07] MEDS: Calcium Carbonate 500 MG ChewTAB PO PRN (22:04)
[2020-04-08] MEDS ORDERED: Simethicone Chewable 80 MG TAB PO PRN (00:43)
[2020-04-08 04:28] LABS: #Basophils 0.1 thou/uL (0.0-0.2); #Eosinphils 0.1 thou/uL (0.0-0.7); #Lymphocytes 1.8 thou/uL (1.20-3.40); #Monocytes 0.7 thou/uL (0.11-0.59); #Neutrophils 4.8 thou/uL (1.40-6.50); %Basophils 0.9 % (0.0-1.0); %Eosinophils 1.6 % (0.0-10.0); %Lymphocytes 24.3 % (21.0-51.0); %Monocytes 9.5 % (0.0-10.0); %Neutrophils 63.8 % (42.0-75.0); Hemoglobin 8.2 g/dL (14.0-18.0); Mean Corpuscular HGB CONC 31.5 g/dL (32.0-36.0); Mean Corpuscular Hemoglobin 26.1 pg (27.0-31.0); Mean Corpuscular Volume 82.9 fL (78.0-98.0); Mean Platelet Volume 7.1 fL (7.4-10.4); Platelet Count 222 thou/uL (130-400); RBC Distribution Width 16.1 % (11.5-14.5); Red Blood Cell (RBC) Count 3.16 mill/uL (4.70-6.10); White Blood Cell (WBC) Count 7.6 thou/uL (4.8-10.8)
[2020-04-08 04:44] LABS: Anion Gap 15 mmol/L (10-20); BUN (Urea Nitrogen) 47 mg/dL (8.4-25.7); Calc. Creatinine Clearance 53 mL/min (70-130); Carbon Dioxide 25 mmol/L (23-31); Chloride 100 mmol/L (98-107); Estimated GFR-MDRD 41; Glucose 149 mg/dL (83-110); Potassium 3.4 mmol/L (3.5-5.1); Sodium 137 mmol/L (136-145)
[2020-04-08] MEDS: Bromocriptine 2.5 MG TAB PO SCH (10:00)
[2020-04-08] MEDS: Amlodipine 5 MG TAB PO SCH ×2 (10:01→21:26)
[2020-04-08] MEDS: Aspirin 81 mg Enteric Coated Tablet PO SCH (10:01)
[2020-04-08] MEDS: Carvedilol 25 MG TAB PO SCH ×2 (10:01→21:27)
[2020-04-08] MEDS: Vit A,C & E/Lutein/Minerals Tablet PO SCH ×2 (10:01→21:28)
[2020-04-08] MEDS: hydrALAZINE 25 MG TAB PO SCH ×2 (10:02→21:19)
[2020-04-08] MEDS: Furosemide 40 MG/4 ML VIAL SLOW IVP SCH ×2 (10:02→12:30)
[2020-04-08] MEDS: Apixaban 2.5 MG TAB PO SCH ×2 (10:02→21:25)
[2020-04-08] MEDS: DorzolamidE/Timolol 2%/0.5% Ophth Soln 10 ml Bottle EA EYE SCH ×2 (10:02→21:25)
[2020-04-08] MEDS: HumaLOG 300 UNITS/3 ML VIAL SC PRN ×2 (11:14→17:28)
--- NOTE | 2020-04-08 12:17 | PRG ---
DATE OF SERVICE: 04/08/2020 SUBJECTIVE: Mr. Hanson is feeling well. He has had no signs of bleeding. Breathing a little better. OBJECTIVE: VITAL SIGNS: Temperature is 98, respirations 20, O2 saturation 92% on room air, and blood pressure 179/75. LUNGS: Decreased breath sounds at bases. HEART: Regular rhythm. ABDOMEN: Slightly protuberant. EXTREMITIES: Reveal edema. LABORATORY DATA: White count 7.6, hemoglobin 8.2, and platelet count 222. ASSESSMENT: Iron-deficiency anemia. Hemoglobin has come up from low 7.4 to 8.2 with two doses of iron in last two days. He is heme-negative. He has had a full GI workup with esophagogastroduodenoscopy and colonoscopy about a year and a half ago. At this time with heme-negative stools and no signs of occult overt bleeding and congestive heart failure, would not repeat that. RECOMMENDATIONS: 1. Continue iron as outpatient. Continue PPI as an outpatient as he has a large hiatal hernia. There is a risk for chronic GI blood loss from Erik's erosions in the stomach from the hiatal hernia. 2. He can follow up in the office in 1 to 2 weeks after discharge with his primary felt strip finisher, and if he has, we can always consider capsule endoscopy of the small bowel. If he is not responding to iron or consider referral for IV iron. Job ID: [id number]
[2020-04-08] MEDS: Calcium Carbonate 500 MG ChewTAB PO PRN ×2 (12:31→17:27)
--- NOTE | 2020-04-08 13:59 | PRG ---
DATE OF SERVICE: 04/08/2020 SUBJECTIVE: Mr. Hanson today is complaining of shortness of breath, but still states he is feeling much better than when he came in. He continues to be in atrial fibrillation. OBJECTIVE: VITAL SIGNS: Blood pressure 179/75, pulse 73, and respirations 20. LUNGS: Crackles noted at bases. HEART: Irregularly irregular. ABDOMEN: Soft, nontender, and nondistended. EXTREMITIES: No edema. PERTINENT LABORATORY DATA: Hemoglobin 8.2 and hematocrit 26.2. IMPRESSION: 1. Atrial fibrillation. 2. Shortness of breath. 3. Anemia. RECOMMENDATIONS: Mr. Hanson has had a negative workup for GI bleed in the past. He does have renal insufficiency that is likely contributing to his low hemoglobin. It would be okay from my standpoint after GI has cleared Mr. Hanson to proceed with anticoagulation therapy. I did discuss cardioversion with Mr. Hanson. I discussed SURINDER cardioversion. I discussed the risks and benefits of both, he has opted to not proceed. We would like to proceed with just medical therapy. We will give extra dose of Lasix now. Continue rate control. Once he is improved and more stable, it would be okay from my standpoint to discharge home with close outpatient followup. Job ID: [id number]
--- NOTE | 2020-04-08 16:54 | PDOC.HOSPP ---
- Subjective Subjective: Hb stable. no evidence of bleeding. so far tolerate Eliquis - Objective Vital Signs & Weight: Vital Signs (12 hours) Temp Pulse Pulse Pulse Resp BP BP 04/08/20 15:00 97.9 F 78 19 04/08/20 11:35 98.3 F 76 22 H 04/08/20 10:02 73 04/08/20 10:01 73 04/08/20 09:11 84 69 179/75 H 163/81 H 04/08/20 07:58 04/08/20 07:54 98.4 F 73 20 BP BP Pulse Ox Pulse Ox Pulse Ox 04/08/20 15:00 137/75 95 04/08/20 11:35 140/65 91 L 04/08/20 10:02 04/08/20 10:01 04/08/20 09:11 92 L 94 L 04/08/20 07:58 92 L 04/08/20 07:54 176/77 H 92 L Weight Weight 253 lb 2 oz I&O: 04/07/20 04/08/20 04/09/20 06:59 06:59 06:59 Intake Total 720 720 200 Output Total 600 800 Balance 120 -80 200 Result Diagrams: 04/08/20 03:50 04/08/20 03:50 Additional Labs: Accuchecks 04/08/20 04/08/20 04/07/20 10:36 06:39 20:08 POC Glucose 195 H 142 H 211 H 04/07/20 16:53 POC Glucose 156 H Radiology Reviewed by me: Yes EKG Reviewed by me: Yes Hospitalist ROS - Medication Medications: Active Medications Generic Name Dose Route Start Last Admin Trade Name Deacon PRN Reason Stop Dose Admin Acetaminophen 650 mg 04/01/20 13:40 04/07/20 22:04 Acetaminophen 325 Mg Tab PO 650 mg Q8H PRN Administration Headache/Fever/Mild Pain (1-3) Amlodipine Besylate 5 mg 04/02/20 21:00 04/08/20 10:01 Amlodipine 5 Mg Tab PO 5 mg BID TARAH Administration Apixaban 2.5 mg 04/07/20 21:00 04/08/20 10:02 Apixaban 2.5 Mg Tab PO 2.5 mg BID TARAH Administration Aspirin 81 mg 04/02/20 09:00 04/08/20 10:01 Aspirin 81 Mg Enteric Coated Tablet PO Not Given DAILY TARAH Bromocriptine Mesylate 10 mg 04/05/20 09:00 04/08/20 10:00 Bromocriptine 2.5 Mg Tab PO 10 mg QAM TARAH Administration Calcium Carbonate 1,000 mg 04/07/20 21:54 04/08/20 12:31 Calcium Carbonate 500 Mg Chewtab PO 1,000 mg Q4H PRN Administration Heartburn or Indigestion Carvedilol 25 mg 04/02/20 21:00 04/08/20 10:01 Carvedilol 25 Mg Tab PO 25 mg BID TARAH Administration Dorzolamide/Timolol 1 drop 04/05/20 21:00 04/08/20 10:02 Dorzolamide/Timolol 2%/0.5% Ophth Soln 10 Ml Bottle EA EYE 1 drop BID TARAH Administration Furosemide 40 mg 04/04/20 09:00 04/08/20 12:30 Furosemide 40 Mg/4 Ml Vial SLOW IVP 40 mg 0900,1300 TARAH Administration Hydralazine HCl 50 mg 04/02/20 21:00 04/08/20 10:02 Hydralazine 25 Mg Tab PO 50 mg BID TARAH Administration Insulin Human Lispro 0 units 04/01/20 15:22 04/08/20 11:14 Humalog 300 Units/3 Ml Vial SC 2 unit .MILD SLIDING SCALE PRN Administration Mild Correctional Scale Isosorbide Mononitrate 30 mg 04/03/20 09:00 04/08/20 10:01 Isosorbide Mononitrate Er 30 Mg Tab PO 30 mg DAILY TARAH Administration Latanoprost 1 drop 04/04/20 21:00 04/07/20 21:59 Latanoprost 0.005% Ophth Soln 2.5 Ml Bottle EA EYE 1 drop HS TARAH Administration Loperamide HCl 2 mg 04/07/20 14:47 04/07/20 15:28 Loperamide Hcl 2 Mg Cap PO 2 mg DAILYPRN PRN Administration Diarrhea/Loose Stools Multivitamins/Minerals 1 tab 04/04/20 21:00 04/08/20 10:01 Vit A,C & E/Lutein/Minerals Tablet PO 1 tab BID TARAH Administration Pantoprazole Sodium 40 mg 04/03/20 09:00 04/08/20 10:01 Pantoprazole 40 Mg Tab PO 40 mg DAILY TARAH Administration Simethicone 80 mg 04/08/20 00:43 04/08/20 00:53 Simethicone Chewable 80 Mg Tab PO 80 mg PCHS PRN Administration Gas Pain Simvastatin 10 mg 04/02/20 21:00 04/07/20 22:02 Simvastatin 10 Mg Tab PO 10 mg HS TARAH Administration - Exam General Appearance: NAD Eye: PERRL ENT: normocephalic atraumatic Neck: supple Heart: RRR Respiratory: CTAB Gastrointestinal: soft Extremities: 2+ LE edema Skin: normal turgor Neurological: cranial nerve grossly intact Musculoskeletal: normal tone Psychiatric: normal affect, normal behavior, A&O x 3 Hosp A/P - Plan CHF exac, acute on chronic diastolic HF --cont IV diuresis as per cardiology, monitor I&O and daily weight --Follow AM labs PAF --Since his hemoglobin remained stable. No further endoscopic studies recommended from GI. We have cautiously resumed his Eliquis at renally dose, 2.5 mg twice daily --rate controlled with Coreg Chronic Anemia, iron def - Hb stable --appreciate GI input --s/p Venofer, cont PO supplement. Follow CBC HTN - controlled --cont BB CKD 3 --Cr stable monitor DM 2 --BG stable. Sitagliptin on hold. Cont ISS
[2020-04-08] MEDS: Acetaminophen 325 MG TAB PO PRN (21:26)
[2020-04-08] MEDS: Latanoprost 0.005% Ophth Soln 2.5 ml Bottle EA EYE SCH (21:28)
[2020-04-08] MEDS: Simvastatin 10 MG TAB PO SCH (21:34)
[2020-04-09 04:46] LABS: #Basophils 0.1 thou/uL (0.0-0.2); #Eosinphils 0.1 thou/uL (0.0-0.7); #Lymphocytes 1.7 thou/uL (1.20-3.40); #Monocytes 0.7 thou/uL (0.11-0.59); %Basophils 0.9 % (0.0-1.0); %Eosinophils 2.3 % (0.0-10.0); %Lymphocytes 25.9 % (21.0-51.0); %Monocytes 10.8 % (0.0-10.0); %Neutrophils 60.1 % (42.0-75.0); Hemoglobin 7.8 g/dL (14.0-18.0); Mean Corpuscular HGB CONC 31.7 g/dL (32.0-36.0); Mean Corpuscular Hemoglobin 26.3 pg (27.0-31.0); Mean Platelet Volume 7.1 fL (7.4-10.4); Platelet Count 210 thou/uL (130-400); RBC Distribution Width 16.3 % (11.5-14.5); Red Blood Cell (RBC) Count 2.95 mill/uL (4.70-6.10); White Blood Cell (WBC) Count 6.6 thou/uL (4.8-10.8)
[2020-04-09 05:09] LABS: Anion Gap 15 mmol/L (10-20); BUN (Urea Nitrogen) 43 mg/dL (8.4-25.7); Calc. Creatinine Clearance 58 mL/min (70-130); Calcium 8.8 mg/dL (7.8-10.44); Carbon Dioxide 25 mmol/L (23-31); Chloride 99 mmol/L (98-107); Estimated GFR-MDRD 45; Glucose 134 mg/dL (83-110); Potassium 3.2 mmol/L (3.5-5.1); Sodium 136 mmol/L (136-145)
[2020-04-09] MEDS ORDERED: Potassium Chloride 20 MEQ TAB PO SCH (08:00)
[2020-04-09] MEDS: Apixaban 2.5 MG TAB PO SCH (10:02)
[2020-04-09] MEDS: Carvedilol 25 MG TAB PO SCH (10:02)
[2020-04-09] MEDS: Aspirin 81 mg Enteric Coated Tablet PO SCH (10:02)
[2020-04-09] MEDS: hydrALAZINE 25 MG TAB PO SCH (10:02)
[2020-04-09] MEDS: Vit A,C & E/Lutein/Minerals Tablet PO SCH (10:02)
[2020-04-09] MEDS: Amlodipine 5 MG TAB PO SCH (10:03)
[2020-04-09] MEDS: DorzolamidE/Timolol 2%/0.5% Ophth Soln 10 ml Bottle EA EYE SCH (10:03)
[2020-04-09] MEDS: Furosemide 40 MG/4 ML VIAL SLOW IVP SCH ×2 (10:03→12:59)
[2020-04-09] MEDS: Bromocriptine 2.5 MG TAB PO SCH (10:07)
--- NOTE | 2020-04-09 13:00 | PDOC.DS.DS ---
Provider - Provider Date of Admission: 04/01/20 13:16 Date of Discharge: 04/09/20 Admitting Provider: Lisy Welch MD Consultations: Cardiology (Dr. Head) Primary Care Physician: Megha Chapman MD Course - Hospital Course Hospital Course: DISCHARGE DIAGNOSES: 1. Congestive heart failure, acute on chronic diastolic dysfunction 2. Paroxysmal atrial flutter 3. Chronic anemia, iron deficiency 4. Essential hypertension 5. CKD stage III 6. Diabetes type 2 PERTINENT IMAGING STUDIES: Chest x-ray: Cardiomegaly with pulmonary congestion suggestive of pulmonary edema with small bilateral effusion. 2D echo: EF 50-55%. Diastolic function could not be assessed secondary to A. fib. Mild tricuspid regurg. Moderate MR HISTORY OF PRESENT ILLNESS AND BRIEF HOSPITAL COURSE: Patient is a pleasant 89 years old gentleman who has significant past medical histories of chronic diastolic heart failure, hypertension, diabetes type 2, CKD stage III, chronic anemia, who presented to ED with complaint of short of breath, worsening for the last 3 days. Symptom associated with increased weight gain, and worsening lower extremity edema. His BNP was noted elevated, 400. Chest x-ray show findings consistent with CHF exacerbation. Patient was subsequently admitted to hospitalist service. He was monitored on telemetry. His serial enzymes negative x3. Cardiology was consulted. His echo was repeated, so preserved EF. Patient has been diuresed well with IV Lasix. It should be noted that, patient on Eliquis for stroke prophylaxis. However his hemoglobin has been trended down slightly. Further work-up of his anemia, so iron deficiency anemia. His stool guaiac negative x3. We also obtain input from GI, no evidence of active bleeding. He was given 2 dose of Venofer while in the hospital. His hemoglobin has been remained stable above 7. Discussed with GI, okay to resume Eliquis for stroke prophylaxis, renally dose at 2.5 mg twice daily. Patient reported that his symptoms much improved, he is satting well on room air. He has been ambulating around with a walker. I have discussed with cardiology, Dr. Head, cleared to discharge the patient home. Patient need to follow-up with him next week. He will need to follow-up with his PCP in 1 to 2 weeks, and repeat CBC to make sure that his hemoglobin alaina ined stable. PROCEDURE PERFORMED: NONE DISCHARGE CONDITION: STABLE DISPOSITION: HOME PHYSICAL EXAM: General Appearance: Alert, oriented, resting comfortably, no apparent distress, well developed/nourished. HEENT: Normocephalic/atraumatic, moist mucous membrane, normal ENT inspection, normal tones. PERRLA, no scleral icterus, normal conjunctiva Neck: Supple, normal inspection, no JVD Respiratory: Lungs are clear bilaterally, normal breath sounds, no accessory muscle use Cardiovascular: Regular rate, regular rhythm, no murmur, no rubs Abdomen: Soft, nontender, nondistended, normal bowel sounds, no organomegaly, no guarding no rebound Back: Normal inspection, no CVA tenderness Extremities: No clubbing, no cyanosis, 1+ edema bilaterally Psych/Mental Status: Normal affect, speech, non-pressured, AAO x 3 Neurologic: CN II-XII are intact. Skin: Warm/Dry, Normal Color, no rashes DISCHARGE TIME SPENT: >30 MINUTES Resuscitation Status: 04/01/20 13:40 Resuscitation Status Routine Resuscitation Status: FULL: Full Resuscitation - Labs Lab Results: 04/09/20 03:47 04/09/20 03:47 Abnormal Lab Results - Last 48 hrs 04/08/20 03:50: Potassium 3.4 L, BUN 47 H, Creatinine 1.59 H 04/08/20 03:50: RBC 3.16 L, Hgb 8.2 L, Hct 26.2 L, MCH 26.1 L, MCHC 31.5 L, RDW 16.1 H, MPV 7.1 L, Monocytes # 0.7 H 04/09/20 03:47: Potassium 3.2 L, BUN 43 H, Creatinine 1.47 H 04/09/20 03:47: RBC 2.95 L, Hgb 7.8 L, Hct 24.5 L, MCH 26.3 L, MCHC 31.7 L, RDW 16.3 H, MPV 7.1 L, Monocytes % 10.8 H, Monocytes # 0.7 H Microbiology - Entire Visit 04/05/20 17:45 Stool Stool Occult Blood (EDIE) - Final - Physical Exam Vitals: Vital Signs (12 hours) Temp Pulse Resp BP BP Pulse Ox 04/09/20 10:03 72 04/09/20 10:02 72 04/09/20 08:00 95 04/09/20 07:57 97.4 F L 72 17 144/66 H 95 04/09/20 04:00 98.3 F 69 18 143/64 H 92 L Weight Weight 250 lb Physical Exam: The patient was seen and examined on the day of discharge. Plan - Discharge Medications Prescriptions: Apixaban [Eliquis] 2.5 mg PO BID #60 tab Home Medications: Medication Instructions Recorded Confirmed Type Esomeprazole Magnesium [NexIUM] 40 mg PO DAILY 09/22/13 04/01/20 History Simvastatin 10 mg PO HS 09/22/13 04/01/20 History Bromocriptine Mesylate [Parlodel] 10 mg PO DAILY 03/03/14 04/01/20 History Isosorbide Mononitrate [Imdur] 30 mg PO DAILY #0 tab 03/05/14 04/02/20 Rx Carvedilol [Coreg] 25 mg PO BID #0 tab 04/08/14 04/01/20 Rx Acetaminophen With Codeine 1 - 2 tablet PO Q6HR PRN 01/11/17 04/02/20 History [Tylenol with Codeine #3] Amlodipine [Norvasc] 5 mg PO BID 01/11/17 04/01/20 History Furosemide [Lasix] 40 mg PO BID 01/11/17 04/02/20 History hydrALAZINE [Apresoline] 50 mg PO BID 01/11/17 04/02/20 History Albuterol Sulfate [Proair 2 puff INH Q4HR PRN 08/11/19 04/02/20 History Digihaler] Aspirin [Adult Low Dose Aspirin EC] 81 mg PO DAILY 08/11/19 04/01/20 History Dorzolamide HCl/Timolol Maleat 1 drop EA EYE BID 08/11/19 04/05/20 History [Cosopt Ophth Solution] Fluticasone Propionate [Flonase 2 spray EA NARE PRN PRN 08/11/19 04/02/20 H istory Allergy Relief] Vit A/Vit C/Vit E/Zinc/Copper 1 cap PO BID 08/11/19 04/02/20 History [PreserVision Areds Softgel] sitaGLIPtin Phosphate [Januvia] 50 mg PO DAILY 08/11/19 04/01/20 History Ascorbic Acid [Vitamin C] 1,000 mg PO DAILY 04/02/20 04/02/20 History Cholecalciferol [Vitamin D3] 1,000 unit PO DAILY 04/02/20 04/02/20 History Cyanocobalamin (Vitamin B-12) 1,000 mcg PO DAILY 04/02/20 04/02/20 History [Vitamin B12] Travoprost 1 drop OP HS 04/02/20 04/05/20 History Apixaban [Eliquis] 2.5 mg PO BID #60 tab 04/09/20 Rx Allergies: Penicillins Allergy (Intermediate, Verified 08/20/19 15:12) HIVES, SWELLING - Discharge Instructions Discharge Instructions:: Follow up with your PCP in 1-2 weeks, and follow-up with Dr. Head in 1 weeks, and repeat CBC to make sure that your hemoglobin remained stable. Activity:: Activity as Tolerated Nourishment:: Low Sodium Diet - Follow up Plan Referrals: Cardiac Rehab - [facility] [Outside] - 7 Days (Your doctor has ordered outpatient cardiac rehab for you to begin within 1-2 weeks after you go home from the hospital. The location nearest to you is the [facility]. We will call you in 3-5 days to get you scheduled for your evaluation. If you do not receive a call, please reach out to us at [phone] and request an appointment.) Megha Chapman MD [Primary Care Provider] - Shai Head MD [Active] - Disposition: HOME Quality - Care Measures CORE MEASURES:: HF
[2020-04-09 13:18] VITALS: BP 138/62; TEMP 97.2
[2020-04-09 13:58] LABS: Potassium 3.6 mmol/L (3.5-5.1)
[2020-04-10] MEDS ORDERED: Potassium Chloride 20 MEQ TAB PO SCH (08:00)
== END 2020-04-09 16:20 | disposition home or self-care (01) | DRG 291 ==
LOC: ERS 09:55 → ERHOLD 13:16 → 2NO 18:05
PROVIDERS: ADMIT Internal Medicine; ATTEND Family Medicine
DX: I13.0 Hypertensive heart and chronic kidney disease with heart failure and stage 1 through stage 4 chronic kidney disease, or unspecified chronic kidney disease (principal); I50.33 Acute on chronic diastolic (congestive) heart failure; J96.01 Acute respiratory failure with hypoxia; I47.2 Ventricular tachycardia; Z20.828 Contact with and (suspected) exposure to other viral communicable diseases; D50.9 Iron deficiency anemia, unspecified; N18.30 Chronic kidney disease, stage 3 unspecified; E11.22 Type 2 diabetes mellitus with diabetic chronic kidney disease; D63.1 Anemia in chronic kidney disease; E78.5 Hyperlipidemia, unspecified; I48.0 Paroxysmal atrial fibrillation; G47.33 Obstructive sleep apnea (adult) (pediatric); H35.30 Unspecified macular degeneration; K44.9 Diaphragmatic hernia without obstruction or gangrene; I25.10 Atherosclerotic heart disease of native coronary artery without angina pectoris; Z88.0 Allergy status to penicillin; Z79.82 Long term (current) use of aspirin; Z79.899 Other long term (current) drug therapy; Z79.51 Long term (current) use of inhaled steroids
CPT/HCPCS: 36415; 36416; 71045; 80048; 80053; 82274; 82565; 82728; 83540; 83550; 83735; 83880; 84443; 84484; 85014; 85018; 85025; 85049; 85610; 87635; 93005; 93306; 93798; 96374; J1940; J2916; J3490; U0003

== ENCOUNTER 2020-06-25 06:51 | Day surgery (SDC) | payer MEDICARE ==
[2020-06-24 13:09] VITALS: BMI 29.5
[~2020-06-25 06:51] MED LIST: Cyclopentolate 1% Opth Drop 2 ML BOT FS SCH; EPINEPHrine 0.3 MG in Ophthalmic Irrigation Solution 500 ML IRR SCH; Fentanyl 100 MCG/2 ML VIAL ONE; Midazolam HCl 2 mg/2 ml Vial ONE; Phenylephrine 2.5% Ophth Soln 5 ML BOT FS SCH
[2020-06-25] MEDS ORDERED: Cyclopentolate 1% Ophth Drops 15 ML BOT ONE (07:12)
[2020-06-25] MEDS ORDERED: Phenylephrine 2.5% Ophth Soln 5 ML BOT ONE (07:12)
[2020-06-25] MEDS ORDERED: Lidocaine 4% PF 5 ML AMP ONE (09:22)
[2020-06-25] MEDS ORDERED: PROPOFOL 200 MG/20 ML VIAL ONE (09:22)
[2020-06-25] MEDS ORDERED: Bupivacaine PF 0.75% SDV 10 ML ONE (09:22)
[2020-06-25] MEDS ORDERED: Triamcinolone 40 MG/ML VIAL ONE (09:22)
[2020-06-25] MEDS ORDERED: Maxitrol 0.1% Opth Oint 3.5 GM TUBE ONE (09:22)
--- NOTE | 2020-06-25 11:29 | OP ---
DATE OF PROCEDURE: 06/25/2020 PREOPERATIVE DIAGNOSES: 1. Vitreous hemorrhage, left eye. 2. Hyphema, left eye. POSTOPERATIVE DIAGNOSES: 1. Vitreous hemorrhage, left eye. 2. Hyphema, left eye. PROCEDURE PERFORMED: 1. 25-gauge pars plana vitrectomy, left eye. 2. Anterior chamber washout, left eye. ESTIMATED BLOOD LOSS: None. SPECIMENS REMOVED: None. COMPLICATIONS: None. ANESTHESIA: MAC with sub-Tenon's block. DESCRIPTION OF PROCEDURE: The patient was identified in the preoperative holding area, where the correct eye being the left eye was marked for surgery. The patient was taken to the operating room, where MAC anesthesia was induced. The left eye was prepped and draped in the usual sterile ophthalmic fashion for surgery. A wire-clip lid speculum was placed. An inferonasal conjunctival peritomy was fashioned with Isaiah scissors for administration of sub-Tenon's block. The block consisted of 1:1 ratio of 4% lidocaine and 0.75% Marcaine. A total of 5 mL was administered. A standard 25-gauge pars plana vitrectomy platform was fashioned with trocars placed approximately 3.5 mm from the limbus. The infusion was noted to be within the vitreous cavity prior to being turned on to an infusion pressure of 30 mmHg. The light pipe and microvitrector were introduced in the eye under visualization of the BIOM viewing system. A significantly dense vitreous hemorrhage was noted obscuring adequate view of the fundus. A 15-degree blade was used to make a superior corneal paracentesis. Subsequently, the anterior chamber was washed out with the use of BSS. This allowed for improved visualization posteriorly. Subsequently, an anterior vitrectomy was performed centrally and vitrectomy was progressively removed posteriorly to allow for improved clearance of vitreous hemorrhage and improved visualization of the fundus. Upon view of the fundus, a thorough 360-degree scleral depressed exam of the periphery was performed numerous times, which revealed no defects. A few scattered intraretinal hemorrhages were noted throughout the periphery, however, no significant neovascular retinopathy was noted. No defects were noted within the retina as well. The decision was made to observe the fundus without any treatment. The cannulas were sequentially removed. All sclerotomies were noted to be watertight. Subconjunctival Kenalog was injected. The wire lid speculum was removed followed by application of TobraDex ophthalmic ointment and a light patch and shield. The patient tolerated the procedure well and was taken to outpatient recovery area in good condition. Job ID: [id number]
== END 2020-06-25 10:25 | disposition home or self-care (01) ==
LOC: SDC 06:51
PROVIDERS: ATTEND Ophthalmology Retina Specialist
PROC: 08T53ZZ Resection of Left Vitreous, Percutaneous Approach (ICD-10-PCS; principal; 2020-06-25)
PROC: 08QF3ZZ Repair Left Retina, Percutaneous Approach (ICD-10-PCS; 2020-06-25)
DX: H43.12 Vitreous hemorrhage, left eye (principal); H21.02 Hyphema, left eye; Z88.0 Allergy status to penicillin
CPT/HCPCS: J0171; J2250; J2704; J3010; J3301; J3490

== ENCOUNTER 2020-09-30 17:32 | Inpatient (IN) | payer MEDICARE ==
[2020-09-30 18:05] LABS: #Monocytes 0.9 thou/uL (0.11-0.59); #Neutrophils 11.2 thou/uL (1.40-6.50); %Basophils 0.2 % (0.0-1.0); %Lymphocytes 7.4 % (21.0-51.0); %Monocytes 6.9 % (0.0-10.0); %Neutrophils 85.6 % (42.0-75.0); Hemoglobin 9.7 g/dL (14.0-18.0); Mean Corpuscular HGB CONC 31.5 g/dL (32.0-36.0); Mean Corpuscular Hemoglobin 27.9 pg (27.0-31.0); Mean Corpuscular Volume 88.7 fL (78.0-98.0); Mean Platelet Volume 6.2 fL (7.4-10.4); Platelet Count 219 thou/uL (130-400); RBC Distribution Width 15.4 % (11.5-14.5); Red Blood Cell (RBC) Count 3.47 mill/uL (4.70-6.10); White Blood Cell (WBC) Count 13.1 thou/uL (4.8-10.8)
[2020-09-30 18:29] LABS: ALT (SGPT) 7 U/L (8-55); AST (SGOT) 12 U/L (5-34); Albumin 3.5 g/dL (3.4-4.8); Alkaline Phosphatase 132 U/L (40-110); Anion Gap 14 mmol/L (10-20); BUN (Urea Nitrogen) 62 mg/dL (8.4-25.7); Bilirubin, Total 0.8 mg/dL (0.2-1.2); Calc. Creatinine Clearance 0 mL/min (70-130); Calcium 8.8 mg/dL (7.8-10.44); Carbon Dioxide 25 mmol/L (23-31); Chloride 100 mmol/L (98-107); Globulin 4.1 g/dL (2.4-3.5); Glucose 155 mg/dL (83-110); Protein, Total 7.6 g/dL (5.8-8.1); Sodium 134 mmol/L (136-145)
[2020-09-30] MEDS ORDERED: Cefepime 2 GM VIAL ONE (19:09)
[2020-09-30] MEDS ORDERED: Vancomycin 1 GM/200 ML BAG ONE (19:41)
[2020-09-30] MEDS ORDERED: Zolpidem Tartrate 5 MG TAB PO PRN (20:59)
[2020-09-30] MEDS ORDERED: Bisacodyl 5 MG TAB PO PRN (20:59)
[2020-09-30] MEDS ORDERED: Dextrose 5% in Water 1,000 ML IV PRN (20:59)
[2020-09-30] MEDS ORDERED: Dextrose 50% Abboject 50 ML SYRINGE SLOW IVP PRN (20:59)
[2020-09-30] MEDS ORDERED: Acetaminophen 325 MG TAB PO PRN (20:59)
[2020-09-30] MEDS ORDERED: Ondansetron PF 4 MG/2 ML Vial IVP PRN (20:59)
[2020-09-30] MEDS ORDERED: HumaLOG 300 UNITS/3 ML VIAL SC PRN (20:59)
[2020-09-30] MEDS ORDERED: Furosemide 40 MG/4 ML VIAL ONE (21:15)
[2020-09-30] MEDS ORDERED: Furosemide 40 MG TAB ONE (21:15)
[2020-09-30] MEDS ORDERED: Latanoprost 0.005% Ophth Soln 2.5 ml Bottle EA EYE SCH (22:00)
[2020-09-30 22:05] VITALS: BMI 30.2
[2020-10-01] MEDS ORDERED: VANCOMYCIN 1.25 GM/250 ML BAG 1.25 GM in Premix Bag 1 BAG IVPB SCH (03:00)
[2020-10-01 05:25] LABS: SARS-CoV-2 PCR by NAA Not Detected (NotDetected)
[2020-10-01] MEDS: Furosemide 40 MG/4 ML VIAL SLOW IVP SCH ×2 (06:37→15:19)
[2020-10-01 06:53] LABS: Band 22 % (5-11); Hemoglobin 9.2 g/dL (14.0-18.0); Lymphocytes 14 % (21-51); MDiff Complete? YES; Mean Corpuscular HGB CONC 31.1 g/dL (32.0-36.0); Mean Corpuscular Volume 90.1 fL (78.0-98.0); Mean Platelet Volume 6.3 fL (7.4-10.4); Monocytes 5 % (0-10); Neutrophil 59 % (42-75); Platelet Count 196 thou/uL (130-400); Platelet Morphology Comment Appears Adequate; RBC Distribution Width 15.3 % (11.5-14.5); Red Blood Cell (RBC) Count 3.29 mill/uL (4.70-6.10)
[2020-10-01 07:05] LABS: Albumin 3.3 g/dL (3.4-4.8); Anion Gap 15 mmol/L (10-20); BUN (Urea Nitrogen) 65 mg/dL (8.4-25.7); BUN/Creatinine Ratio 27.66; Calc. Creatinine Clearance 35 mL/min (70-130); Carbon Dioxide 26 mmol/L (23-31); Chloride 101 mmol/L (98-107); Glucose 143 mg/dL (83-110); Magnesium 2.6 mg/dL (1.6-2.6); Phosphorus 4.8 mg/dL (2.3-4.7); Potassium 4.8 mmol/L (3.5-5.1); Sodium 137 mmol/L (136-145)
[2020-10-01] MEDS: Famotidine 20 MG TAB PO SCH (09:10)
[2020-10-01] MEDS: Cholecalciferol 1,000 UNITS (25 MCG) TAB PO SCH (09:11)
[2020-10-01] MEDS: Bromocriptine 2.5 MG TAB PO SCH (09:11)
[2020-10-01] MEDS: Alogliptin 6.25 MG TAB PO SCH (09:11)
[2020-10-01] MEDS: Apixaban 2.5 MG TAB PO SCH ×2 (09:11→22:07)
[2020-10-01] MEDS: Carvedilol 25 MG TAB PO SCH ×2 (09:12→22:07)
[2020-10-01] MEDS: Cefepime 1 GM in Sodium Chloride 0.9% 100 ML IVPB SCH ×2 (09:13→22:07)
[2020-10-01] MEDS: DorzolamidE/Timolol 2%/0.5% Ophth Soln 10 ml Bottle EA EYE SCH ×2 (09:48→22:08)
[2020-10-01 10:29] LABS: Troponin I Less than 0.010 ng/mL (< 0.028)
[2020-10-01 12:27] LABS: Hemoglobin A1c 6.2 % (4.0-6.0)
[2020-10-01] MEDS: Latanoprost 0.005% Ophth Soln 2.5 ml Bottle EA EYE SCH (22:07)
[2020-10-01] MEDS: Simvastatin 10 MG TAB PO SCH (22:07)
[2020-10-02 02:41] LABS: Vancomycin, Trough 14.5 ug/mL
[2020-10-02 02:55] LABS: Troponin I Less than 0.010 ng/mL (< 0.028)
[2020-10-02] MEDS: Vancomycin HCl 1.25 GM in Sodium Chloride 0.9% 250 ML 250 ML IVPB SCH (03:46)
[2020-10-02] MEDS: Furosemide 40 MG/4 ML VIAL SLOW IVP SCH ×2 (05:33→13:59)
[2020-10-02] MEDS: Famotidine 20 MG TAB PO SCH (08:59)
[2020-10-02] MEDS: Carvedilol 25 MG TAB PO SCH ×2 (08:59→20:02)
[2020-10-02] MEDS: Alogliptin 6.25 MG TAB PO SCH (08:59)
[2020-10-02] MEDS: Apixaban 2.5 MG TAB PO SCH ×2 (09:00→20:02)
[2020-10-02] MEDS: Bromocriptine 2.5 MG TAB PO SCH (09:00)
[2020-10-02] MEDS: Cholecalciferol 1,000 UNITS (25 MCG) TAB PO SCH (09:00)
[2020-10-02] MEDS: Cefepime 1 GM in Sodium Chloride 0.9% 100 ML IVPB SCH ×2 (09:00→20:02)
[2020-10-02] MEDS: DorzolamidE/Timolol 2%/0.5% Ophth Soln 10 ml Bottle EA EYE SCH ×2 (09:01→20:02)
[2020-10-02] MEDS: Latanoprost 0.005% Ophth Soln 2.5 ml Bottle EA EYE SCH (20:02)
[2020-10-02] MEDS: Simvastatin 10 MG TAB PO SCH (20:02)
[2020-10-02] MEDS: HYDROcodone/Acetaminophen 5/325 mg Tablet PO PRN (20:03)
[2020-10-03] MEDS: HYDROcodone/Acetaminophen 5/325 mg Tablet PO PRN ×3 (00:45→21:24)
[2020-10-03] MEDS: Vancomycin HCl 1.25 GM in Sodium Chloride 0.9% 250 ML 250 ML IVPB SCH (05:10)
[2020-10-03] MEDS: VANCOMYCIN 1.25 GM/250 ML BAG 1.25 GM in Premix Bag 1 BAG IVPB SCH (05:11)
[2020-10-03] MEDS: Furosemide 40 MG/4 ML VIAL SLOW IVP SCH ×2 (06:41→13:17)
[2020-10-03 07:10] LABS: #Eosinphils 0.1 thou/uL (0.0-0.7); #Lymphocytes 1.1 thou/uL (1.20-3.40); #Monocytes 0.8 thou/uL (0.11-0.59); #Neutrophils 5.7 thou/uL (1.40-6.50); %Basophils 0.4 % (0.0-1.0); %Lymphocytes 14.4 % (21.0-51.0); %Monocytes 10.6 % (0.0-10.0); %Neutrophils 73.6 % (42.0-75.0); Hemoglobin 9.3 g/dL (14.0-18.0); Mean Corpuscular HGB CONC 30.7 g/dL (32.0-36.0); Mean Corpuscular Hemoglobin 27.9 pg (27.0-31.0); Mean Corpuscular Volume 90.8 fL (78.0-98.0); Mean Platelet Volume 6.3 fL (7.4-10.4); Platelet Count 177 thou/uL (130-400); RBC Distribution Width 15.1 % (11.5-14.5); Red Blood Cell (RBC) Count 3.31 mill/uL (4.70-6.10); White Blood Cell (WBC) Count 7.8 thou/uL (4.8-10.8)
[2020-10-03 07:26] LABS: Anion Gap 13 mmol/L (10-20); BUN (Urea Nitrogen) 63 mg/dL (8.4-25.7); Calc. Creatinine Clearance 40 mL/min (70-130); Carbon Dioxide 26 mmol/L (23-31); Chloride 100 mmol/L (98-107); Glucose 119 mg/dL (83-110); Potassium 4.1 mmol/L (3.5-5.1); Sodium 135 mmol/L (136-145)
[2020-10-03] MEDS: Alogliptin 6.25 MG TAB PO SCH (09:18)
[2020-10-03] MEDS: Apixaban 2.5 MG TAB PO SCH ×2 (09:18→21:15)
[2020-10-03] MEDS: Cholecalciferol 1,000 UNITS (25 MCG) TAB PO SCH (09:18)
[2020-10-03] MEDS: Famotidine 20 MG TAB PO SCH (09:18)
[2020-10-03] MEDS: Carvedilol 25 MG TAB PO SCH ×2 (09:18→21:15)
[2020-10-03] MEDS: Cefepime 1 GM in Sodium Chloride 0.9% 100 ML IVPB SCH ×2 (09:19→21:15)
[2020-10-03] MEDS: Bromocriptine 2.5 MG TAB PO SCH (09:19)
[2020-10-03] MEDS: DorzolamidE/Timolol 2%/0.5% Ophth Soln 10 ml Bottle EA EYE SCH ×2 (09:19→21:16)
[2020-10-03] MEDS: Simvastatin 10 MG TAB PO SCH (21:15)
[2020-10-03] MEDS: Latanoprost 0.005% Ophth Soln 2.5 ml Bottle EA EYE SCH (21:17)
[2020-10-04 02:20] LABS: #Eosinphils 0.1 thou/uL (0.0-0.7); #Lymphocytes 0.9 thou/uL (1.20-3.40); #Monocytes 0.7 thou/uL (0.11-0.59); %Eosinophils 1.4 % (0.0-10.0); %Lymphocytes 13.7 % (21.0-51.0); %Monocytes 10.8 % (0.0-10.0); %Neutrophils 74.2 % (42.0-75.0); Hemoglobin 9.4 g/dL (14.0-18.0); Mean Corpuscular HGB CONC 30.8 g/dL (32.0-36.0); Mean Corpuscular Volume 90.8 fL (78.0-98.0); Mean Platelet Volume 6.3 fL (7.4-10.4); Platelet Count 175 thou/uL (130-400); RBC Distribution Width 14.8 % (11.5-14.5); Red Blood Cell (RBC) Count 3.36 mill/uL (4.70-6.10); White Blood Cell (WBC) Count 6.7 thou/uL (4.8-10.8)
[2020-10-04 02:38] LABS: Vancomycin, Trough 26.3 ug/mL
[2020-10-04] MEDS: VANCOMYCIN 1.25 GM/250 ML BAG 1.25 GM in Premix Bag 1 BAG IVPB SCH (02:58)
[2020-10-04 03:19] LABS: Anion Gap 13 mmol/L (10-20); BUN (Urea Nitrogen) 66 mg/dL (8.4-25.7); Calc. Creatinine Clearance 38 mL/min (70-130); Calcium 9.4 mg/dL (7.8-10.44); Carbon Dioxide 27 mmol/L (23-31); Chloride 99 mmol/L (98-107); Glucose 130 mg/dL (83-110); Sodium 135 mmol/L (136-145)
[2020-10-04] MEDS: Furosemide 40 MG/4 ML VIAL SLOW IVP SCH ×2 (06:04→15:29)
[2020-10-04] MEDS ORDERED: Metolazone 5 MG TAB PO SCH (08:00)
[2020-10-04] MEDS ORDERED: Albuterol Sulfate 2.5 mg/3 ml Neb NEB PRN (08:41)
[2020-10-04] MEDS: Cholecalciferol 1,000 UNITS (25 MCG) TAB PO SCH (09:18)
[2020-10-04] MEDS: Famotidine 20 MG TAB PO SCH (09:18)
[2020-10-04] MEDS: Amlodipine 5 MG TAB PO SCH ×2 (09:18→21:21)
[2020-10-04] MEDS: hydrALAZINE 25 MG TAB PO SCH ×2 (09:18→21:21)
[2020-10-04] MEDS: DorzolamidE/Timolol 2%/0.5% Ophth Soln 10 ml Bottle EA EYE SCH ×2 (09:19→21:20)
[2020-10-04] MEDS: Carvedilol 25 MG TAB PO SCH ×2 (09:19→21:21)
[2020-10-04] MEDS: Apixaban 2.5 MG TAB PO SCH ×2 (09:19→21:22)
[2020-10-04] MEDS: Cefepime 1 GM in Sodium Chloride 0.9% 100 ML IVPB SCH (09:19)
[2020-10-04] MEDS: Bromocriptine 2.5 MG TAB PO SCH (09:19)
[2020-10-04] MEDS: Fluticasone Propionate Nasal Spray 16 gm Bottle NASAL SCH (09:20)
[2020-10-04] MEDS ORDERED: Cepastat Lozenges 1 LOZ PO PRN (13:10)
[2020-10-04] MEDS: HYDROcodone/Acetaminophen 5/325 mg Tablet PO PRN ×2 (15:29→21:31)
[2020-10-04] MEDS ORDERED: Latanoprost 0.005% Ophth Soln 2.5 ml Bottle EA EYE SCH (21:00)
[2020-10-04] MEDS: Latanoprost 0.005% Ophth Soln 2.5 ml Bottle EA EYE SCH (21:20)
[2020-10-04] MEDS: Doxycycline 100 MG CAP PO SCH (21:22)
[2020-10-04] MEDS: Simvastatin 10 MG TAB PO SCH (21:22)
[2020-10-05] MEDS ORDERED: Vancomycin 1 GM in Premix Bag 1 BAG IVPB SCH (03:00)
[2020-10-05] MEDS: HYDROcodone/Acetaminophen 5/325 mg Tablet PO PRN ×2 (05:00→20:10)
[2020-10-05] MEDS: Furosemide 40 MG/4 ML VIAL SLOW IVP SCH ×2 (05:01→19:28)
[2020-10-05 08:59] LABS: #Eosinphils 0.1 thou/uL (0.0-0.7); #Lymphocytes 1.3 thou/uL (1.20-3.40); #Monocytes 0.8 thou/uL (0.11-0.59); #Neutrophils 4.3 thou/uL (1.40-6.50); %Basophils 0.5 % (0.0-1.0); %Lymphocytes 19.5 % (21.0-51.0); %Monocytes 12.1 % (0.0-10.0); Hemoglobin 9.8 g/dL (14.0-18.0); Mean Corpuscular HGB CONC 30.2 g/dL (32.0-36.0); Mean Corpuscular Volume 89.5 fL (78.0-98.0); Mean Platelet Volume 6.3 fL (7.4-10.4); Platelet Count 217 thou/uL (130-400); RBC Distribution Width 14.9 % (11.5-14.5); Red Blood Cell (RBC) Count 3.64 mill/uL (4.70-6.10); White Blood Cell (WBC) Count 6.5 thou/uL (4.8-10.8)
[2020-10-05] MEDS: Cholecalciferol 1,000 UNITS (25 MCG) TAB PO SCH (09:09)
[2020-10-05] MEDS: hydrALAZINE 25 MG TAB PO SCH ×2 (09:09→20:10)
[2020-10-05] MEDS: Amlodipine 5 MG TAB PO SCH ×2 (09:09→20:11)
[2020-10-05] MEDS: Famotidine 20 MG TAB PO SCH (09:09)
[2020-10-05] MEDS: Carvedilol 25 MG TAB PO SCH ×2 (09:10→20:11)
[2020-10-05] MEDS: Doxycycline 100 MG CAP PO SCH ×2 (09:10→20:11)
[2020-10-05] MEDS: Apixaban 2.5 MG TAB PO SCH ×2 (09:10→20:11)
[2020-10-05] MEDS: Fluticasone Propionate Nasal Spray 16 gm Bottle NASAL SCH (09:11)
[2020-10-05] MEDS: Bromocriptine 2.5 MG TAB PO SCH (09:11)
[2020-10-05] MEDS: DorzolamidE/Timolol 2%/0.5% Ophth Soln 10 ml Bottle EA EYE SCH ×3 (09:12→20:11)
[2020-10-05 09:21] LABS: Anion Gap 15 mmol/L (10-20); BUN (Urea Nitrogen) 67 mg/dL (8.4-25.7); Calc. Creatinine Clearance 37 mL/min (70-130); Calcium 9.9 mg/dL (7.8-10.44); Carbon Dioxide 27 mmol/L (23-31); Chloride 98 mmol/L (98-107); Glucose 126 mg/dL (83-110); Potassium 4.1 mmol/L (3.5-5.1); Sodium 136 mmol/L (136-145)
[2020-10-05] MEDS: Simvastatin 10 MG TAB PO SCH (20:10)
[2020-10-05] MEDS: Latanoprost 0.005% Ophth Soln 2.5 ml Bottle EA EYE SCH (20:11)
[2020-10-06] MEDS: Furosemide 40 MG/4 ML VIAL SLOW IVP SCH ×2 (05:43→14:04)
[2020-10-06 06:52] LABS: Anion Gap 13 mmol/L (10-20); BUN (Urea Nitrogen) 66 mg/dL (8.4-25.7); Calc. Creatinine Clearance 38 mL/min (70-130); Calcium 9.6 mg/dL (7.8-10.44); Carbon Dioxide 28 mmol/L (23-31); Chloride 98 mmol/L (98-107); Glucose 129 mg/dL (83-110); Potassium 3.4 mmol/L (3.5-5.1); Sodium 136 mmol/L (136-145)
[2020-10-06] MEDS: Doxycycline 100 MG CAP PO SCH ×2 (09:34→20:57)
[2020-10-06] MEDS: Apixaban 2.5 MG TAB PO SCH ×2 (09:35→20:57)
[2020-10-06] MEDS: hydrALAZINE 25 MG TAB PO SCH ×2 (09:35→20:57)
[2020-10-06] MEDS: Cholecalciferol 1,000 UNITS (25 MCG) TAB PO SCH (09:36)
[2020-10-06] MEDS: Carvedilol 25 MG TAB PO SCH ×2 (09:36→20:57)
[2020-10-06] MEDS: Bromocriptine 2.5 MG TAB PO SCH (09:36)
[2020-10-06] MEDS: Famotidine 20 MG TAB PO SCH (09:36)
[2020-10-06] MEDS: Amlodipine 5 MG TAB PO SCH ×2 (09:36→20:59)
[2020-10-06] MEDS: Fluticasone Propionate Nasal Spray 16 gm Bottle NASAL SCH ×2 (09:37→09:43)
[2020-10-06] MEDS: DorzolamidE/Timolol 2%/0.5% Ophth Soln 10 ml Bottle EA EYE SCH ×2 (09:37→20:56)
[2020-10-06] MEDS: HYDROcodone/Acetaminophen 5/325 mg Tablet PO PRN (14:03)
[2020-10-06 16:19] LABS: #Eosinphils 0.1 thou/uL (0.0-0.7); #Lymphocytes 1.2 thou/uL (1.20-3.40); #Monocytes 0.8 thou/uL (0.11-0.59); #Neutrophils 4.6 thou/uL (1.40-6.50); %Basophils 0.6 % (0.0-1.0); %Eosinophils 1.5 % (0.0-10.0); %Lymphocytes 17.9 % (21.0-51.0); %Monocytes 11.4 % (0.0-10.0); %Neutrophils 68.6 % (42.0-75.0); Hemoglobin 9.2 g/dL (14.0-18.0); Mean Corpuscular HGB CONC 30.8 g/dL (32.0-36.0); Mean Corpuscular Hemoglobin 27.2 pg (27.0-31.0); Mean Corpuscular Volume 88.3 fL (78.0-98.0); Mean Platelet Volume 6.2 fL (7.4-10.4); Platelet Count 220 thou/uL (130-400); RBC Distribution Width 14.9 % (11.5-14.5); Red Blood Cell (RBC) Count 3.38 mill/uL (4.70-6.10); White Blood Cell (WBC) Count 6.7 thou/uL (4.8-10.8)
[2020-10-06] MEDS: Latanoprost 0.005% Ophth Soln 2.5 ml Bottle EA EYE SCH (20:56)
[2020-10-06] MEDS: Simvastatin 10 MG TAB PO SCH (20:57)
[2020-10-07] MEDS: HYDROcodone/Acetaminophen 5/325 mg Tablet PO PRN (00:56)
[2020-10-07] MEDS: Furosemide 40 MG/4 ML VIAL SLOW IVP SCH (05:32)
[2020-10-07 07:38] LABS: Anion Gap 11 mmol/L (10-20); BUN (Urea Nitrogen) 63 mg/dL (8.4-25.7); Calc. Creatinine Clearance 35 mL/min (70-130); Carbon Dioxide 32 mmol/L (23-31); Chloride 97 mmol/L (98-107); Glucose 127 mg/dL (83-110); Potassium 3.1 mmol/L (3.5-5.1); Sodium 137 mmol/L (136-145)
[2020-10-07] MEDS: Famotidine 20 MG TAB PO SCH (08:25)
[2020-10-07] MEDS: Apixaban 2.5 MG TAB PO SCH (08:28)
[2020-10-07] MEDS: Amlodipine 5 MG TAB PO SCH (08:28)
[2020-10-07] MEDS: Carvedilol 25 MG TAB PO SCH (08:28)
[2020-10-07] MEDS: Cholecalciferol 1,000 UNITS (25 MCG) TAB PO SCH (08:28)
[2020-10-07] MEDS: Doxycycline 100 MG CAP PO SCH (08:29)
[2020-10-07] MEDS: hydrALAZINE 25 MG TAB PO SCH (08:29)
[2020-10-07 08:30] VITALS: BP 140/89
[2020-10-07] MEDS: Bromocriptine 2.5 MG TAB PO SCH (08:30)
[2020-10-07] MEDS: Fluticasone Propionate Nasal Spray 16 gm Bottle NASAL SCH (08:30)
[2020-10-07] MEDS: DorzolamidE/Timolol 2%/0.5% Ophth Soln 10 ml Bottle EA EYE SCH (08:30)
[2020-10-07 08:35] VITALS: TEMP 98
== END 2020-10-07 13:00 | disposition home health service (06) | DRG 602 ==
LOC: ERS 17:32 → ONC 19:31 → OBSVTOIN 10-01 14:54
PROVIDERS: ADMIT Emergency Medicine; ATTEND Internal Medicine
DX: L03.116 Cellulitis of left lower limb (principal); I50.33 Acute on chronic diastolic (congestive) heart failure; I13.0 Hypertensive heart and chronic kidney disease with heart failure and stage 1 through stage 4 chronic kidney disease, or unspecified chronic kidney disease; N17.9 Acute kidney failure, unspecified; E87.1 Hypo-osmolality and hyponatremia; N18.4 Chronic kidney disease, stage 4 (severe); Z20.822 Contact with and (suspected) exposure to COVID-19; H35.30 Unspecified macular degeneration; H40.9 Unspecified glaucoma; E87.5 Hyperkalemia; D63.1 Anemia in chronic kidney disease; L02.416 Cutaneous abscess of left lower limb; L02.415 Cutaneous abscess of right lower limb; I48.0 Paroxysmal atrial fibrillation; L03.115 Cellulitis of right lower limb; E11.22 Type 2 diabetes mellitus with diabetic chronic kidney disease; E11.42 Type 2 diabetes mellitus with diabetic polyneuropathy; I87.8 Other specified disorders of veins; Z79.01 Long term (current) use of anticoagulants; Z95.828 Presence of other vascular implants and grafts; Z88.0 Allergy status to penicillin; Z79.899 Other long term (current) drug therapy; Z79.84 Long term (current) use of oral hypoglycemic drugs; Z98.49 Cataract extraction status, unspecified eye; Z98.890 Other specified postprocedural states; Z87.19 Personal history of other diseases of the digestive system
CPT/HCPCS: 36415; 36416; 71045; 80048; 80053; 80069; 80202; 83036; 83605; 83735; 83880; 84484; 85007; 85025; 85027; 87040; 87635; 93005; 96365; 96366; 96367; 96375; 96376; G0378; J0692; J1940; J2405; J3370; J3490; J7050; U0003; U0005

== ENCOUNTER 2020-11-03 10:05 | Inpatient (IN) | payer MEDICARE ==
[2020-11-03 10:56] LABS: #Lymphocytes 1.2 thou/uL (1.20-3.40); #Monocytes 0.6 thou/uL (0.11-0.59); #Neutrophils 9.3 thou/uL (1.40-6.50); %Basophils 0.1 % (0.0-1.0); %Eosinophils 0.2 % (0.0-10.0); %Lymphocytes 11.1 % (21.0-51.0); %Monocytes 5.8 % (0.0-10.0); %Neutrophils 82.8 % (42.0-75.0); Hemoglobin 9.4 g/dL (14.0-18.0); Mean Corpuscular HGB CONC 31.4 g/dL (32.0-36.0); Mean Corpuscular Hemoglobin 27.9 pg (27.0-31.0); Mean Corpuscular Volume 88.8 fL (78.0-98.0); Mean Platelet Volume 6.5 fL (7.4-10.4); Platelet Count 164 thou/uL (130-400); RBC Distribution Width 15.6 % (11.5-14.5); Red Blood Cell (RBC) Count 3.35 mill/uL (4.70-6.10); White Blood Cell (WBC) Count 11.2 thou/uL (4.8-10.8)
[2020-11-03] MEDS ORDERED: Cefepime 2 GM VIAL ONE (11:02)
[2020-11-03 11:29] LABS: ALT (SGPT) 12 U/L (8-55); AST (SGOT) 15 U/L (5-34); Albumin 3.5 g/dL (3.4-4.8); Alkaline Phosphatase 156 U/L (40-110); Anion Gap 17 mmol/L (10-20); BUN (Urea Nitrogen) 75 mg/dL (8.4-25.7); Bilirubin, Total 0.8 mg/dL (0.2-1.2); Calc. Creatinine Clearance 0 mL/min (70-130); Calcium 8.9 mg/dL (7.8-10.44); Carbon Dioxide 29 mmol/L (23-31); Chloride 95 mmol/L (98-107); Globulin 4.3 g/dL (2.4-3.5); Glucose 139 mg/dL (83-110); Potassium 4.2 mmol/L (3.5-5.1); Protein, Total 7.8 g/dL (5.8-8.1); Sodium 137 mmol/L (136-145)
[2020-11-03] MEDS ORDERED: Morphine 4 MG/ML VIAL ONE (12:11)
[2020-11-03] MEDS ORDERED: Ondansetron PF 4 MG/2 ML Vial ONE (12:12)
[2020-11-03] MEDS ORDERED: Vancomycin 1 GM/200 ML BAG ONE (12:30)
[2020-11-03] MEDS ORDERED: Apixaban 2.5 MG TAB PO SCH (13:15)
[2020-11-03] MEDS ORDERED: Acetaminophen 325 MG TAB PO PRN (13:18)
[2020-11-03] MEDS ORDERED: Calcium Carbonate 500 MG ChewTAB PO PRN (13:18)
[2020-11-03] MEDS ORDERED: Dextrose 50% Abboject 50 ML SYRINGE SLOW IVP PRN (13:22)
[2020-11-03] MEDS ORDERED: Dextrose 5% in Water 1,000 ML IV PRN (13:22)
[2020-11-03 14:45] LABS: Troponin I Less than 0.010 ng/mL (< 0.028)
[2020-11-03 15:28] LABS: SARS-CoV-2 NAA Rapid Test Not Detected (NotDetected)
[2020-11-03] MEDS: Acetaminophen/Codeine 30-300mg Tablet PO PRN (17:15)
[2020-11-03] MEDS: Carvedilol 25 MG TAB PO SCH (17:15)
[2020-11-03 17:34] LABS: Troponin I Less than 0.010 ng/mL (< 0.028)
[2020-11-03] MEDS: Amlodipine 5 MG TAB PO SCH (20:33)
[2020-11-03] MEDS: Simvastatin 10 MG TAB PO SCH (20:34)
[2020-11-03] MEDS: hydrALAZINE 25 MG TAB PO SCH (20:34)
[2020-11-03] MEDS: Latanoprost 0.005% Ophth Soln 2.5 ml Bottle EA EYE SCH (20:34)
[2020-11-03] MEDS: Apixaban 2.5 MG TAB PO SCH (20:34)
[2020-11-03] MEDS: DorzolamidE/Timolol 2%/0.5% Ophth Soln 10 ml Bottle EA EYE SCH (20:35)
[2020-11-03] MEDS: Vit A,C & E/Lutein/Minerals Tablet PO SCH (20:40)
[2020-11-03] MEDS: Insulin Regular 300 UNITS/3 ML VIAL SC PRN (20:44)
[2020-11-03] MEDS ORDERED: Non-Formulary Item 1 EACH (Travoprost [Travoprost] 2.5 ML Drops) EA EYE SCH (21:00)
[2020-11-04] MEDS: Fluticasone Propionate Nasal Spray 16 gm Bottle NASAL SCH (04:08)
[2020-11-04 06:10] LABS: #Eosinphils 0.1 thou/uL (0.0-0.7); #Lymphocytes 1.1 thou/uL (1.20-3.40); #Monocytes 0.8 thou/uL (0.11-0.59); #Neutrophils 7.8 thou/uL (1.40-6.50); %Basophils 0.1 % (0.0-1.0); %Eosinophils 0.7 % (0.0-10.0); %Lymphocytes 11.6 % (21.0-51.0); %Monocytes 7.7 % (0.0-10.0); %Neutrophils 79.9 % (42.0-75.0); Hemoglobin 8.8 g/dL (14.0-18.0); Mean Corpuscular HGB CONC 30.5 g/dL (32.0-36.0); Mean Corpuscular Hemoglobin 27.3 pg (27.0-31.0); Mean Corpuscular Volume 89.4 fL (78.0-98.0); Mean Platelet Volume 6.7 fL (7.4-10.4); Platelet Count 164 thou/uL (130-400); RBC Distribution Width 15.5 % (11.5-14.5); Red Blood Cell (RBC) Count 3.21 mill/uL (4.70-6.10); White Blood Cell (WBC) Count 9.8 thou/uL (4.8-10.8)
[2020-11-04 06:58] LABS: Anion Gap 12 mmol/L (10-20); BUN (Urea Nitrogen) 81 mg/dL (8.4-25.7); CRP (Inflammatory) 12.41 mg/dL (= or < 0.5); Calc. Creatinine Clearance 30 mL/min (70-130); Carbon Dioxide 31 mmol/L (23-31); Chloride 96 mmol/L (98-107); Glucose 132 mg/dL (83-110); Potassium 4.1 mmol/L (3.5-5.1); Sodium 135 mmol/L (136-145)
[2020-11-04] MEDS: Alogliptin 6.25 MG TAB PO SCH (08:35)
[2020-11-04] MEDS: Furosemide 20 MG TAB PO SCH ×2 (08:36→20:08)
[2020-11-04] MEDS: Carvedilol 25 MG TAB PO SCH ×2 (08:36→17:24)
[2020-11-04] MEDS: Amlodipine 5 MG TAB PO SCH ×2 (08:36→20:08)
[2020-11-04] MEDS: Vit A,C & E/Lutein/Minerals Tablet PO SCH ×2 (08:36→20:08)
[2020-11-04] MEDS: Apixaban 2.5 MG TAB PO SCH ×2 (08:36→20:07)
[2020-11-04] MEDS: Bromocriptine 2.5 MG TAB PO SCH (08:37)
[2020-11-04] MEDS: hydrALAZINE 25 MG TAB PO SCH ×2 (08:37→20:08)
[2020-11-04 11:48] LABS: Vancomycin, Random 7.7 ug/mL (See Comment)
[2020-11-04] MEDS ORDERED: Vancomycin 1 GM in Premix Bag 1 BAG IVPB SCH (12:00)
[2020-11-04] MEDS ORDERED: VANCOMYCIN 1.75 GM/350 ML BAG 1.75 GM in Premix Bag 1 BAG IVPB SCH (13:00)
[2020-11-04] MEDS: Cefepime 1 GM in Sodium Chloride 0.9% 100 ML IVPB SCH (13:09)
[2020-11-04] MEDS: Acetaminophen/Codeine 30-300mg Tablet PO PRN (14:34)
[2020-11-04] MEDS: Insulin Regular 300 UNITS/3 ML VIAL SC PRN ×2 (17:24→20:12)
[2020-11-04] MEDS: DorzolamidE/Timolol 2%/0.5% Ophth Soln 10 ml Bottle EA EYE SCH (20:09)
[2020-11-04] MEDS: Latanoprost 0.005% Ophth Soln 2.5 ml Bottle EA EYE SCH (20:09)
[2020-11-04] MEDS: Simvastatin 10 MG TAB PO SCH (20:09)
[2020-11-05] MEDS: Alogliptin 6.25 MG TAB PO SCH ×2 (09:15→09:20)
[2020-11-05] MEDS: Amlodipine 5 MG TAB PO SCH ×2 (09:16→19:52)
[2020-11-05] MEDS: Apixaban 2.5 MG TAB PO SCH ×2 (09:16→19:53)
[2020-11-05] MEDS: hydrALAZINE 25 MG TAB PO SCH ×2 (09:16→19:53)
[2020-11-05] MEDS: Carvedilol 25 MG TAB PO SCH ×2 (09:16→17:55)
[2020-11-05] MEDS: Furosemide 20 MG TAB PO SCH (09:17)
[2020-11-05] MEDS: Bromocriptine 2.5 MG TAB PO SCH (09:18)
[2020-11-05] MEDS: Vit A,C & E/Lutein/Minerals Tablet PO SCH ×2 (09:18→19:55)
[2020-11-05] MEDS: Fluticasone Propionate Nasal Spray 16 gm Bottle NASAL SCH (09:30)
[2020-11-05] MEDS: Acetaminophen/Codeine 30-300mg Tablet PO PRN ×2 (11:02→20:00)
[2020-11-05] MEDS: Cefepime 1 GM in Sodium Chloride 0.9% 100 ML IVPB SCH (11:02)
[2020-11-05] MEDS: Cefepime 2 GM in Sodium Chloride 0.9% 100 ML IVPB SCH (11:17)
[2020-11-05 12:04] LABS: Hemoglobin A1c 5.8 % (4.0-6.0)
[2020-11-05] MEDS: Furosemide 40 MG/4 ML VIAL SLOW IVP SCH (14:22)
[2020-11-05] MEDS: Simvastatin 10 MG TAB PO SCH (19:53)
[2020-11-05] MEDS: DorzolamidE/Timolol 2%/0.5% Ophth Soln 10 ml Bottle EA EYE SCH (19:54)
[2020-11-05] MEDS: Latanoprost 0.005% Ophth Soln 2.5 ml Bottle EA EYE SCH (19:54)
[2020-11-06] MEDS: Albuterol Sulfate 2.5 mg/3 ml Neb NEB PRN ×3 (00:43→20:30)
[2020-11-06] MEDS: Furosemide 40 MG/4 ML VIAL SLOW IVP SCH (05:25)
[2020-11-06] MEDS: Amlodipine 5 MG TAB PO SCH ×2 (08:11→20:30)
[2020-11-06] MEDS: Fluticasone Propionate Nasal Spray 16 gm Bottle NASAL SCH (08:12)
[2020-11-06] MEDS: Alogliptin 6.25 MG TAB PO SCH (08:12)
[2020-11-06] MEDS: Carvedilol 25 MG TAB PO SCH ×2 (08:12→16:58)
[2020-11-06] MEDS: hydrALAZINE 25 MG TAB PO SCH ×2 (08:12→20:29)
[2020-11-06] MEDS: Vit A,C & E/Lutein/Minerals Tablet PO SCH ×2 (08:12→21:58)
[2020-11-06] MEDS: Apixaban 2.5 MG TAB PO SCH ×2 (08:12→20:30)
[2020-11-06] MEDS: Bromocriptine 2.5 MG TAB PO SCH (08:15)
[2020-11-06] MEDS ORDERED: Metolazone 2.5 MG TAB PO SCH (10:00)
[2020-11-06 10:39] LABS: Anion Gap 15 mmol/L (10-20); BUN (Urea Nitrogen) 95 mg/dL (8.4-25.7); Calc. Creatinine Clearance 27 mL/min (70-130); Carbon Dioxide 30 mmol/L (23-31); Chloride 93 mmol/L (98-107); Glucose 189 mg/dL (83-110); Potassium 4.2 mmol/L (3.5-5.1); Sodium 134 mmol/L (136-145)
[2020-11-06] MEDS: Nystatin Powder 15 GM BOT TOP PRN ×2 (10:57→22:10)
[2020-11-06] MEDS: Cefepime 2 GM in Sodium Chloride 0.9% 100 ML IVPB SCH (12:12)
[2020-11-06] MEDS: Insulin Regular 300 UNITS/3 ML VIAL SC PRN ×2 (12:17→20:33)
[2020-11-06] MEDS: Acetaminophen/Codeine 30-300mg Tablet PO PRN ×2 (12:20→20:26)
[2020-11-06] MEDS: Furosemide 100 MG/10 ML VIAL SLOW IVP SCH (14:18)
[2020-11-06] MEDS ORDERED: Polyethylene Glycol 3350 17 GM Packet PO PRN (19:38)
[2020-11-06] MEDS: DorzolamidE/Timolol 2%/0.5% Ophth Soln 10 ml Bottle EA EYE SCH (20:31)
[2020-11-06] MEDS: Simvastatin 10 MG TAB PO SCH (20:31)
[2020-11-06] MEDS: Latanoprost 0.005% Ophth Soln 2.5 ml Bottle EA EYE SCH (20:31)
[2020-11-07] MEDS: Acetaminophen/Codeine 30-300mg Tablet PO PRN ×2 (05:44→23:24)
[2020-11-07] MEDS: Furosemide 100 MG/10 ML VIAL SLOW IVP SCH (05:45)
[2020-11-07 06:36] LABS: Anion Gap 14 mmol/L (10-20); BUN (Urea Nitrogen) 98 mg/dL (8.4-25.7); Calc. Creatinine Clearance 27 mL/min (70-130); Carbon Dioxide 30 mmol/L (23-31); Chloride 94 mmol/L (98-107); Glucose 132 mg/dL (83-110); Potassium 3.9 mmol/L (3.5-5.1); Sodium 134 mmol/L (136-145)
[2020-11-07] MEDS ORDERED: Metolazone 2.5 MG TAB PO SCH (08:30)
[2020-11-07] MEDS: Bromocriptine 2.5 MG TAB PO SCH (08:30)
[2020-11-07] MEDS: Polyethylene Glycol 3350 17 GM Packet PO SCH (08:31)
[2020-11-07] MEDS: Carvedilol 25 MG TAB PO SCH ×2 (08:31→17:03)
[2020-11-07] MEDS: Alogliptin 6.25 MG TAB PO SCH (08:33)
[2020-11-07] MEDS: Apixaban 2.5 MG TAB PO SCH ×2 (08:33→21:09)
[2020-11-07] MEDS: Fluticasone Propionate Nasal Spray 16 gm Bottle NASAL SCH (08:36)
[2020-11-07] MEDS: hydrALAZINE 25 MG TAB PO SCH ×2 (08:36→21:08)
[2020-11-07] MEDS: Amlodipine 5 MG TAB PO SCH ×2 (08:36→21:09)
[2020-11-07] MEDS: Vit A,C & E/Lutein/Minerals Tablet PO SCH ×2 (10:21→21:10)
[2020-11-07] MEDS: Insulin Regular 300 UNITS/3 ML VIAL SC PRN (17:07)
[2020-11-07] MEDS: Simvastatin 10 MG TAB PO SCH (21:08)
[2020-11-07] MEDS: DorzolamidE/Timolol 2%/0.5% Ophth Soln 10 ml Bottle EA EYE SCH (21:09)
[2020-11-07] MEDS: Latanoprost 0.005% Ophth Soln 2.5 ml Bottle EA EYE SCH (21:10)
[2020-11-08] MEDS: Albuterol Sulfate 2.5 mg/3 ml Neb NEB PRN
[2020-11-08 06:31] LABS: Anion Gap 14 mmol/L (10-20); BUN (Urea Nitrogen) 101 mg/dL (8.4-25.7); Calc. Creatinine Clearance 26 mL/min (70-130); Calcium 8.9 mg/dL (7.8-10.44); Carbon Dioxide 31 mmol/L (23-31); Chloride 94 mmol/L (98-107); Glucose 120 mg/dL (83-110); Potassium 4.1 mmol/L (3.5-5.1); Sodium 135 mmol/L (136-145)
[2020-11-08] MEDS: Polyethylene Glycol 3350 17 GM Packet PO SCH (08:22)
[2020-11-08] MEDS: Alogliptin 6.25 MG TAB PO SCH (08:22)
[2020-11-08] MEDS: Carvedilol 25 MG TAB PO SCH ×2 (08:23→17:03)
[2020-11-08] MEDS: Vit A,C & E/Lutein/Minerals Tablet PO SCH ×2 (08:24→21:05)
[2020-11-08] MEDS: hydrALAZINE 25 MG TAB PO SCH ×2 (08:24→21:06)
[2020-11-08] MEDS: Apixaban 2.5 MG TAB PO SCH ×2 (08:25→21:16)
[2020-11-08] MEDS: Fluticasone Propionate Nasal Spray 16 gm Bottle NASAL SCH (08:34)
[2020-11-08] MEDS: Amlodipine 5 MG TAB PO SCH ×2 (08:35→21:06)
[2020-11-08] MEDS: Bromocriptine 2.5 MG TAB PO SCH (08:36)
[2020-11-08] MEDS: Albumin 25% 25 GM/100 ML BOT IVPB SCH (17:04)
[2020-11-08] MEDS: Acetaminophen/Codeine 30-300mg Tablet PO PRN (17:11)
[2020-11-08] MEDS: Insulin Regular 300 UNITS/3 ML VIAL SC PRN (17:12)
[2020-11-08] MEDS ORDERED: EPOETIN ALFA-EPBX (ESRD) 10,000 UNIT/ML VIAL SC SCH (20:00)
[2020-11-08] MEDS: Latanoprost 0.005% Ophth Soln 2.5 ml Bottle EA EYE SCH (21:16)
[2020-11-08] MEDS: Simvastatin 10 MG TAB PO SCH (21:16)
[2020-11-08] MEDS: DorzolamidE/Timolol 2%/0.5% Ophth Soln 10 ml Bottle EA EYE SCH (21:17)
[2020-11-09] MEDS: Albumin 25% 25 GM/100 ML BOT IVPB SCH ×4 (00:47→17:22)
[2020-11-09] MEDS: Albuterol Sulfate 2.5 mg/3 ml Neb NEB PRN ×3 (02:08→19:26)
[2020-11-09] MEDS: Acetaminophen/Codeine 30-300mg Tablet PO PRN (04:29)
[2020-11-09 06:46] LABS: Anion Gap 16 mmol/L (10-20); BUN (Urea Nitrogen) 98 mg/dL (8.4-25.7); Calc. Creatinine Clearance 28 mL/min (70-130); Carbon Dioxide 29 mmol/L (23-31); Chloride 95 mmol/L (98-107); Glucose 116 mg/dL (83-110); Sodium 136 mmol/L (136-145)
[2020-11-09 06:48] LABS: Iron 28 ug/dL (65-175); Iron Binding Capacity, Total 225 mcg/dL (261-462)
[2020-11-09] MEDS: Fluticasone Propionate Nasal Spray 16 gm Bottle NASAL SCH (10:32)
[2020-11-09] MEDS: Bromocriptine 2.5 MG TAB PO SCH (10:32)
[2020-11-09] MEDS: Carvedilol 25 MG TAB PO SCH ×2 (10:33→17:22)
[2020-11-09] MEDS: Apixaban 2.5 MG TAB PO SCH ×2 (10:33→20:42)
[2020-11-09] MEDS: Polyethylene Glycol 3350 17 GM Packet PO SCH (10:34)
[2020-11-09] MEDS: hydrALAZINE 25 MG TAB PO SCH ×2 (10:34→20:42)
[2020-11-09] MEDS: Amlodipine 5 MG TAB PO SCH ×2 (10:34→20:41)
[2020-11-09] MEDS: Alogliptin 6.25 MG TAB PO SCH (10:34)
[2020-11-09] MEDS: Vit A,C & E/Lutein/Minerals Tablet PO SCH ×2 (10:35→20:48)
[2020-11-09] MEDS: Insulin Regular 300 UNITS/3 ML VIAL SC PRN (13:14)
[2020-11-09] MEDS: Simvastatin 10 MG TAB PO SCH (20:42)
[2020-11-09] MEDS: DorzolamidE/Timolol 2%/0.5% Ophth Soln 10 ml Bottle EA EYE SCH (20:43)
[2020-11-09] MEDS: Latanoprost 0.005% Ophth Soln 2.5 ml Bottle EA EYE SCH (20:49)
[2020-11-10] MEDS: Acetaminophen/Codeine 30-300mg Tablet PO PRN ×2 (01:06→21:24)
[2020-11-10 07:39] LABS: Albumin 3.9 g/dL (3.4-4.8); Anion Gap 15 mmol/L (10-20); BUN (Urea Nitrogen) 93 mg/dL (8.4-25.7); BUN/Creatinine Ratio 31.96; Calc. Creatinine Clearance 28 mL/min (70-130); Calcium 9.3 mg/dL (7.8-10.44); Carbon Dioxide 31 mmol/L (23-31); Chloride 95 mmol/L (98-107); Glucose 128 mg/dL (83-110); Phosphorus 3.8 mg/dL (2.3-4.7); Potassium 3.9 mmol/L (3.5-5.1); Sodium 137 mmol/L (136-145)
[2020-11-10] MEDS: Amlodipine 5 MG TAB PO SCH ×2 (08:35→21:23)
[2020-11-10] MEDS: Alogliptin 6.25 MG TAB PO SCH (08:35)
[2020-11-10] MEDS: hydrALAZINE 25 MG TAB PO SCH ×2 (08:35→21:24)
[2020-11-10] MEDS: Carvedilol 25 MG TAB PO SCH ×2 (08:35→16:20)
[2020-11-10] MEDS: Vit A,C & E/Lutein/Minerals Tablet PO SCH ×2 (08:35→21:42)
[2020-11-10] MEDS: Polyethylene Glycol 3350 17 GM Packet PO SCH (08:36)
[2020-11-10] MEDS: Fluticasone Propionate Nasal Spray 16 gm Bottle NASAL SCH (08:45)
[2020-11-10] MEDS: Bromocriptine 2.5 MG TAB PO SCH (08:45)
[2020-11-10] MEDS: Apixaban 2.5 MG TAB PO SCH ×2 (08:45→21:23)
[2020-11-10] MEDS: Albuterol Sulfate 2.5 mg/3 ml Neb NEB PRN ×2 (10:06→22:41)
[2020-11-10] MEDS ORDERED: Furosemide 40 MG/4 ML VIAL SLOW IVP SCH (11:30)
[2020-11-10] MEDS: Insulin Regular 300 UNITS/3 ML VIAL SC PRN (11:41)
[2020-11-10] MEDS: DorzolamidE/Timolol 2%/0.5% Ophth Soln 10 ml Bottle EA EYE SCH (21:26)
[2020-11-10] MEDS: Latanoprost 0.005% Ophth Soln 2.5 ml Bottle EA EYE SCH (21:27)
[2020-11-10] MEDS: Simvastatin 10 MG TAB PO SCH (21:28)
[2020-11-11] MEDS: Albuterol Sulfate 2.5 mg/3 ml Neb NEB PRN ×2 (06:49→21:53)
[2020-11-11 06:52] LABS: Albumin 3.8 g/dL (3.4-4.8); Anion Gap 15 mmol/L (10-20); BUN (Urea Nitrogen) 90 mg/dL (8.4-25.7); BUN/Creatinine Ratio 32.14; Calc. Creatinine Clearance 29 mL/min (70-130); Calcium 9.3 mg/dL (7.8-10.44); Carbon Dioxide 30 mmol/L (23-31); Chloride 95 mmol/L (98-107); Glucose 128 mg/dL (83-110); Phosphorus 3.8 mg/dL (2.3-4.7); Potassium 3.8 mmol/L (3.5-5.1); Sodium 136 mmol/L (136-145)
[2020-11-11] MEDS: Bromocriptine 2.5 MG TAB PO SCH (08:13)
[2020-11-11] MEDS: Vit A,C & E/Lutein/Minerals Tablet PO SCH ×2 (08:13→20:18)
[2020-11-11] MEDS: hydrALAZINE 25 MG TAB PO SCH ×2 (08:14→20:17)
[2020-11-11] MEDS: Alogliptin 6.25 MG TAB PO SCH (08:14)
[2020-11-11] MEDS: Apixaban 2.5 MG TAB PO SCH ×2 (08:14→20:17)
[2020-11-11] MEDS: Polyethylene Glycol 3350 17 GM Packet PO SCH (08:15)
[2020-11-11] MEDS: Carvedilol 25 MG TAB PO SCH ×2 (08:15→17:25)
[2020-11-11] MEDS: Fluticasone Propionate Nasal Spray 16 gm Bottle NASAL SCH (08:15)
[2020-11-11] MEDS: Amlodipine 5 MG TAB PO SCH ×2 (08:16→20:17)
[2020-11-11] MEDS: Nystatin Powder 15 GM BOT TOP PRN (08:21)
[2020-11-11] MEDS ORDERED: Furosemide 40 MG/4 ML VIAL SLOW IVP SCH (10:45)
[2020-11-11] MEDS: Insulin Regular 300 UNITS/3 ML VIAL SC PRN (11:45)
[2020-11-11] MEDS: Carvedilol 6.25 MG TAB PO SCH (17:55)
[2020-11-11] MEDS: DorzolamidE/Timolol 2%/0.5% Ophth Soln 10 ml Bottle EA EYE SCH (20:18)
[2020-11-11] MEDS: Latanoprost 0.005% Ophth Soln 2.5 ml Bottle EA EYE SCH (20:18)
[2020-11-11] MEDS: Simvastatin 10 MG TAB PO SCH (20:18)
[2020-11-11] MEDS: Acetaminophen/Codeine 30-300mg Tablet PO PRN (21:25)
[2020-11-12] MEDS: Acetaminophen/Codeine 30-300mg Tablet PO PRN ×2 (05:15→20:41)
[2020-11-12] MEDS: hydrALAZINE 25 MG TAB PO SCH ×2 (07:58→20:35)
[2020-11-12] MEDS: Bromocriptine 2.5 MG TAB PO SCH (07:58)
[2020-11-12] MEDS: Amlodipine 5 MG TAB PO SCH ×2 (07:58→20:35)
[2020-11-12] MEDS: Carvedilol 6.25 MG TAB PO SCH ×2 (07:59→16:16)
[2020-11-12] MEDS: Vit A,C & E/Lutein/Minerals Tablet PO SCH ×2 (07:59→20:34)
[2020-11-12] MEDS: Apixaban 2.5 MG TAB PO SCH ×2 (07:59→20:35)
[2020-11-12] MEDS: Fluticasone Propionate Nasal Spray 16 gm Bottle NASAL SCH (07:59)
[2020-11-12] MEDS: Polyethylene Glycol 3350 17 GM Packet PO SCH (08:00)
[2020-11-12] MEDS: Nystatin Powder 15 GM BOT TOP PRN (08:06)
[2020-11-12 08:53] LABS: Anion Gap 12 mmol/L (10-20); BUN (Urea Nitrogen) 89 mg/dL (8.4-25.7); Calc. Creatinine Clearance 29 mL/min (70-130); Calcium 9.4 mg/dL (7.8-10.44); Carbon Dioxide 33 mmol/L (23-31); Chloride 95 mmol/L (98-107); Glucose 134 mg/dL (83-110); Potassium 3.8 mmol/L (3.5-5.1); Sodium 136 mmol/L (136-145)
[2020-11-12] MEDS: Albuterol Sulfate 2.5 mg/3 ml Neb NEB PRN ×3 (09:57→21:53)
[2020-11-12] MEDS ORDERED: Furosemide 40 MG/4 ML VIAL SLOW IVP SCH (15:15)
[2020-11-12] MEDS: DorzolamidE/Timolol 2%/0.5% Ophth Soln 10 ml Bottle EA EYE SCH (20:35)
[2020-11-12] MEDS: Latanoprost 0.005% Ophth Soln 2.5 ml Bottle EA EYE SCH (20:36)
[2020-11-12] MEDS: Simvastatin 10 MG TAB PO SCH (20:36)
[2020-11-13 06:49] LABS: Anion Gap 15 mmol/L (10-20); BUN (Urea Nitrogen) 90 mg/dL (8.4-25.7); Calc. Creatinine Clearance 29 mL/min (70-130); Carbon Dioxide 30 mmol/L (23-31); Chloride 95 mmol/L (98-107); Glucose 124 mg/dL (83-110); Potassium 3.9 mmol/L (3.5-5.1); Sodium 136 mmol/L (136-145)
[2020-11-13] MEDS: Apixaban 2.5 MG TAB PO SCH (08:23)
[2020-11-13] MEDS: Vit A,C & E/Lutein/Minerals Tablet PO SCH (08:24)
[2020-11-13] MEDS: Bromocriptine 2.5 MG TAB PO SCH (08:25)
[2020-11-13] MEDS: hydrALAZINE 25 MG TAB PO SCH (08:25)
[2020-11-13] MEDS: Amlodipine 5 MG TAB PO SCH (08:26)
[2020-11-13] MEDS: Carvedilol 6.25 MG TAB PO SCH (08:26)
[2020-11-13] MEDS: Polyethylene Glycol 3350 17 GM Packet PO SCH (08:27)
[2020-11-13] MEDS: Fluticasone Propionate Nasal Spray 16 gm Bottle NASAL SCH (08:27)
[2020-11-13] MEDS ORDERED: Furosemide 20 MG TAB PO SCH (09:00)
[2020-11-13] MEDS ORDERED: Furosemide 40 MG/4 ML VIAL SLOW IVP SCH (09:00)
[2020-11-13 13:09] VITALS: BP 133/68; TEMP 97.3
== END 2020-11-13 13:51 | DRG 871 ==
LOC: ERS 10:05 → T4-A 12:39 → OBSVTOIN 11-04 16:19
PROVIDERS: ADMIT Internal Medicine; ATTEND Internal Medicine
DX: A41.52 Sepsis due to Pseudomonas (principal); I50.33 Acute on chronic diastolic (congestive) heart failure; N18.5 Chronic kidney disease, stage 5; L03.116 Cellulitis of left lower limb; N17.9 Acute kidney failure, unspecified; I48.19 Other persistent atrial fibrillation; I13.2 Hypertensive heart and chronic kidney disease with heart failure and with stage 5 chronic kidney disease, or end stage renal disease; J96.11 Chronic respiratory failure with hypoxia; E87.1 Hypo-osmolality and hyponatremia; Z20.822 Contact with and (suspected) exposure to COVID-19; D63.1 Anemia in chronic kidney disease; E11.22 Type 2 diabetes mellitus with diabetic chronic kidney disease; F41.9 Anxiety disorder, unspecified; F32.9 Major depressive disorder, single episode, unspecified; I49.3 Ventricular premature depolarization; E78.5 Hyperlipidemia, unspecified; H35.30 Unspecified macular degeneration; H40.9 Unspecified glaucoma; I87.2 Venous insufficiency (chronic) (peripheral); E11.40 Type 2 diabetes mellitus with diabetic neuropathy, unspecified; E78.00 Pure hypercholesterolemia, unspecified; I25.5 Ischemic cardiomyopathy; I70.1 Atherosclerosis of renal artery; Z88.0 Allergy status to penicillin; Z79.899 Other long term (current) drug therapy; Z79.01 Long term (current) use of anticoagulants; Z98.49 Cataract extraction status, unspecified eye; Z99.81 Dependence on supplemental oxygen
CPT/HCPCS: 0240U; 36415; 36416; 71045; 71046; 71250; 80048; 80053; 80069; 80202; 82728; 83036; 83540; 83550; 83605; 83735; 83880; 84484; 85025; 86140; 87040; 87077; 87149; 87186; 93005; 93306; 93970; 94640; 96365; 96366; 96367; 96375; 96376; G0378; J0692; J1815; J1940; J2270; J2405; J3370; J3490; J7611; P9047; Q5105

== ENCOUNTER 2021-05-15 11:00 | Outpatient (CLI) | payer MEDICARE | END 2021-05-15 11:01 | disposition home or self-care (01) | LOC: BICRAD 11:00 | PROVIDERS: ATTEND Internal Medicine | DX: R05.9 Cough, unspecified (principal); R91.8 Other nonspecific abnormal finding of lung field | CPT/HCPCS: 71046 ==

== ENCOUNTER 2021-05-15 13:41 | Outpatient (CLI) | payer MEDICARE | END 2021-05-15 13:42 | disposition home or self-care (01) | LOC: CT 13:41 | PROVIDERS: ATTEND Internal Medicine | DX: R93.89 Abnormal findings on diagnostic imaging of other specified body structures (principal); K44.9 Diaphragmatic hernia without obstruction or gangrene; J90 Pleural effusion, not elsewhere classified; J93.9 Pneumothorax, unspecified; E78.00 Pure hypercholesterolemia, unspecified; I11.0 Hypertensive heart disease with heart failure; I50.9 Heart failure, unspecified; I48.91 Unspecified atrial fibrillation; E11.40 Type 2 diabetes mellitus with diabetic neuropathy, unspecified; R05.9 Cough, unspecified; R91.8 Other nonspecific abnormal finding of lung field | CPT/HCPCS: 71046; 71250; 99284 ==

== ENCOUNTER 2021-05-15 17:53 | Emergency (ER) | payer MEDICARE | END 2021-05-15 23:13 | disposition home or self-care (01) | LOC: ERS 17:53 | DX: J93.9 Pneumothorax, unspecified (principal); E78.00 Pure hypercholesterolemia, unspecified; I11.0 Hypertensive heart disease with heart failure; I50.9 Heart failure, unspecified; I48.91 Unspecified atrial fibrillation; E11.40 Type 2 diabetes mellitus with diabetic neuropathy, unspecified | CPT/HCPCS: 99284 ==

== ENCOUNTER 2021-10-07 10:37 | Outpatient (CLI) | payer MEDICARE | END 2021-10-07 10:38 | disposition home or self-care (01) | LOC: RAD 10:37 | PROVIDERS: ATTEND Internal Medicine Pulmonary Disease | DX: J94.8 Other specified pleural conditions (principal) | CPT/HCPCS: 71046 ==

== ENCOUNTER 2022-02-05 09:52 | Outpatient (CLI) | payer MEDICARE ==
[2022-02-05] MEDS ORDERED: Magnevist 469MG/ML 20 ML VIAL ONE (16:10)
== END 2022-02-05 09:53 | disposition home or self-care (01) ==
LOC: MRI 09:52
PROVIDERS: ATTEND Internal Medicine Endocrinology, Diabetes & Metabolism
DX: E22.1 Hyperprolactinemia (principal); E23.6 Other disorders of pituitary gland
CPT/HCPCS: 70553; 82565; A9579

== ENCOUNTER 2022-03-25 15:52 | Emergency (ER) | payer MEDICARE ==
[2022-03-25 16:26] LABS: #Basophils 0.1 thou/uL (0.0-0.2); #Eosinphils 0.1 thou/uL (0.0-0.7); #Lymphocytes 1.2 thou/uL (1.20-3.40); #Monocytes 0.5 thou/uL (0.11-0.59); #Neutrophils 2.6 thou/uL (1.40-6.50); %Basophils 1.3 % (0.0-1.0); %Eosinophils 1.9 % (0.0-10.0); %Lymphocytes 26.8 % (21.0-51.0); %Monocytes 11.6 % (0.0-10.0); %Neutrophils 58.4 % (42.0-75.0); Hemoglobin 11.5 g/dL (14.0-18.0); Mean Corpuscular HGB CONC 30.5 g/dL (32.0-36.0); Mean Corpuscular Hemoglobin 34.2 pg (27.0-31.0); Mean Platelet Volume 6.4 fL (7.4-10.4); Platelet Count 182 thou/uL (130-400); RBC Distribution Width 14.5 % (11.5-14.5); Red Blood Cell (RBC) Count 3.38 mill/uL (4.70-6.10); White Blood Cell (WBC) Count 4.5 thou/uL (4.8-10.8)
[2022-03-25 16:47] LABS: ALT (SGPT) 11 U/L (8-55); AST (SGOT) 12 U/L (5-34); Albumin 3.7 g/dL (3.4-4.8); Alkaline Phosphatase 176 U/L (40-110); Anion Gap 14 mmol/L (10-20); BUN (Urea Nitrogen) 9 mg/dL (8.4-25.7); Bilirubin, Total 0.5 mg/dL (0.2-1.2); Calc. Creatinine Clearance 0 mL/min (70-130); Calcium 9.5 mg/dL (7.8-10.44); Carbon Dioxide 30 mmol/L (23-31); Chloride 98 mmol/L (98-107); Estimated GFR 29; Globulin 3.8 g/dL (2.4-3.5); Glucose 112 mg/dL (83-110); Potassium 3.8 mmol/L (3.5-5.1); Protein, Total 7.5 g/dL (5.8-8.1); Sodium 138 mmol/L (136-145)
[2022-03-25 17:00] LABS: Digoxin 0.75 ng/mL (0.8-2.0)
== END 2022-03-25 18:07 | disposition home or self-care (01) ==
LOC: ERS 15:52
DX: R05.9 Cough, unspecified (principal); E11.22 Type 2 diabetes mellitus with diabetic chronic kidney disease; I13.2 Hypertensive heart and chronic kidney disease with heart failure and with stage 5 chronic kidney disease, or end stage renal disease; N18.6 End stage renal disease; I48.91 Unspecified atrial fibrillation; E78.00 Pure hypercholesterolemia, unspecified; Z99.2 Dependence on renal dialysis; Z79.01 Long term (current) use of anticoagulants; Z79.899 Other long term (current) drug therapy
CPT/HCPCS: 36415; 71045; 80053; 80162; 85025; 94760